=== PATIENT | female | born 1950 | race Caucasian/White ===

== ENCOUNTER → 2016-06-27 | Outpatient (CLI) | payer BC ==
[~2016-06-27] MED LIST: ADVIN25050 INH; ALBU1AER9 INH; ATV1 PO; CLIN300C10 PO; FSM35 PO; NEBI5TAB PO; OXYC-57 PO; PRED50TA PO; [UNRECOGNIZED DRUG - OTHER] PO
--- NOTE | 2016-06-27 09:41 | DIAGNOSTIC IMAGING REPORT ---
RIGHT KNEE 4 VIEWS; LEFT KNEE 4 VIEWS CLINICAL HISTORY: Bilateral knee pain. FINDINGS: An AP standing view both knees, a tunnel view both knees, a sunrise view of both knees, as well as lateral views of the right and left knee are compared radiographs of the right knee dated 12/29/2011 and radiographs of the left knee dated 05/17/2006. The skeletal structures are osteopenic. No fracture is seen. Right knee: There is mild tricompartmental degenerative joint space narrowing in the right knee, greatest in the medial and patellofemoral compartments. No osteochondral defect is identified on the tunnel image. There is minimal degenerative beaking of the tibial spine. A small calcified fabella is incidentally noted. There is no joint effusion. The overlying soft tissues are within normal limits. Left knee: There is mild tricompartmental degenerative joint space narrowing, greatest in the medial and patellofemoral compartments. No osteochondral defect is identified on the tunnel view. There are small lateral marginal osteophytes as well as minimal degenerative beaking of the tibial spine. A calcified fabella is incidentally noted. No joint effusion is identified. The overlying soft tissues are within normal limits. IMPRESSION: 1. No acute bony abnormality is seen in either knee. 2. Osteopenia and minimal arthritic change as above. Electronically signed by: Nish Conley M.D. 06/27/2016 9:39 AM Dictated Date/Time: 06/27/2016 9:36 AM
== END | disposition home or self-care (01) ==
LOC: C.RDSM 13:37
PROVIDERS: ATTEND Physical Medicine & Rehabilitation Sports Medicine
DX: M25.561 Pain in right knee (principal); M85.80 Other specified disorders of bone density and structure, unspecified site

== ENCOUNTER → 2016-08-01 | Outpatient (CLI) | payer BC ==
--- NOTE | 2016-08-01 13:53 | DIAGNOSTIC IMAGING REPORT ---
CT OF THE CHEST WITHOUT IV CONTRAST CLINICAL HISTORY: Malignant neoplasm of right upper lobe. Reactive airway disease. COMPARISON STUDY: Chest CT December 09, 2015. CT DOSE: 580.32 mGycm TECHNIQUE: Axial images of the chest were obtained without IV contrast. Images were reviewed in the axial, sagittal, and coronal planes. IV contrast was not administered for this examination. FINDINGS: There are findings consistent with a right upper lobectomy. No enlarged axillary, mediastinal or hilar lymph nodes are present. A left subclavian pacemaker is unchanged in position. Cardiac size is stable. There is a large hiatal hernia with partially intrathoracic stomach. The previously described 8 mm right perihilar nodule shown on image 80 of 307 is unchanged since prior exam of December 09, 2015. A 1 cm groundglass nodule within the right lower lobe shown on image 114 is also unchanged since prior exam but increased in size since an earlier study of March 26, 2015. There are scattered groundglass opacities within the lungs which are new since prior exam and favor an infectious process. No pneumothorax or pleural effusion is present. There are no suspicious osseous lesions. There is a small gallstone within the gallbladder. IMPRESSION: 1. Stable 8 mm right perihilar nodule since prior exam of December 09, 2015. This is indeterminate and should be assessed on subsequent studies. 2. 1 cm groundglass nodule within the right lower lobe. This is stable since prior chest CT but increased in size since earlier exams. This may reflect a low-grade malignancy. 3. Scattered mild groundglass opacities within the lungs which are new since prior exam and favor a mild infectious or inflammatory process. Electronically signed by: Jamil Mccabe M.D. 08/01/2016 1:51 PM Dictated Date/Time: 08/01/2016 10:18 AM
== END | disposition home or self-care (01) ==
LOC: C.CTS 10:02
PROVIDERS: ATTEND Internal Medicine Pulmonary Disease
DX: C34.10 Malignant neoplasm of upper lobe, unspecified bronchus or lung (principal); J45.909 Unspecified asthma, uncomplicated; R91.8 Other nonspecific abnormal finding of lung field

== ENCOUNTER → 2017-01-30 | Outpatient (CLI) | payer BC ==
--- NOTE | 2017-01-30 16:17 | DIAGNOSTIC IMAGING REPORT ---
(CHEST) THORAX WITHOUT CLINICAL HISTORY: R91.1 Pulmonary nodule COMPARISON STUDY: 08/01/2016 , March 2015 CT DOSE: 376.19 mGycm TECHNIQUE: CT of the thorax was performed from the thoracic inlet to the lung bases. Images are reviewed in the axial, sagittal, and coronal planes. IV contrast was not administered for this examination. A dose lowering technique was utilized adhering to the principles of ALARA. FINDINGS: Thyroid: Is an 8 mm right lobe thyroid nodule. There is a left lobe calcification. Thoracic aorta: The thoracic aorta is normal in course and caliber, noting standard 3 vessel arch anatomy. Heart: The heart is normal in size and configuration, without pericardial effusion. There is a left subclavian central venous pacemaker present. Lungs and pleural spaces: No pleural effusions are visualized. There is no focal pulmonary consolidation. There is an enlarging 11 mm right lower lobe groundglass pulmonary nodule. This is viewed as suspicious for a low-grade neoplasm. There is a solid irregularly marginated 9 mm perihilar right upper lung zone pulmonary nodule. This remains unchanged in size. There are postsurgical changes of a right upper lobectomy Mediastinum: There is no mediastinal lymphadenopathy. Latosha: There is no evidence of pathologic hilar adenopathy given the limitations of a noncontrast study Axilla: There is no evidence of pathologic axillary lymphadenopathy Upper abdomen: There is a large hiatal hernia Skeletal structures: There are no lytic or blastic osseous lesions. IMPRESSION: 1. Stable indeterminate 9 mm solid irregular marginated right upper lung zone perihilar nodule 2. Slowly enlarging 11 mm right lower lobe groundglass pulmonary nodule. This is suspicious for low-grade malignancy. Electronically signed by: Tono Haynes M.D. 01/30/2017 4:16 PM Dictated Date/Time: 01/30/2017 4:06 PM
== END | disposition home or self-care (01) ==
LOC: C.CTS 15:49
PROVIDERS: ATTEND Internal Medicine Pulmonary Disease
DX: R91.1 Solitary pulmonary nodule (principal)

== ENCOUNTER 2017-02-28 11:29 | Day surgery (SDC) | payer BC ==
[~2017-02-28] VITALS: Ht 160 cm; Wt 81.7 kg
[~2017-02-28 11:29] MED LIST changes: +CEFAZOLIN 2000 MG/60 ML D5W IV SCH; -CLIN300C10 PO; -OXYC-57 PO
[2017-02-28 11:56] VITALS: Ht 160 cm; Wt 81.7 kg
--- NOTE | 2017-02-28 12:24 | History & Physical Bridge Note ---
H&P Re-Evaluation Bridge Note: I have examined the patient, reviewed the History & Physical and in the interval since the performance of the History & Physical I have noted the following changes of clinical significance: Some episodes of dizziness. No syncope. Mild dyspnea.
[2017-02-28] MEDS ORDERED: BACITRACIN 50000 UNIT VIAL ONE (12:42)
[2017-02-28] MEDS ORDERED: BUPIVACAINE 0.5 % 5 MG/1 ML MPF 30ML VIAL ONE (12:42)
[2017-02-28] MEDS ORDERED: LIDOCAINE HCL 1% 20 ML VIAL ONE (12:42)
[2017-02-28] MEDS ORDERED: FENTANYL CITRATE INJ 50 MCG/1 ML 2 ML VIAL ONE (12:52)
[2017-02-28] MEDS ORDERED: MIDAZOLAM HCL 1 MG/ML 2ML VIAL ONE (12:53)
[2017-02-28] MEDS ORDERED: NURSING VERBAL MED ORDER ONE (13:00)
[2017-02-28] MEDS ORDERED: CLINDAMYCIN IV 600 MG in DEXTROSE 5% ADD-VANTAGE 50ML 50 ML IV SCH (13:00)
--- NOTE | 2017-02-28 13:05 | Procedure Note ---
Pre-Mod Sedation Assessment General Date of Moderate Sedation: Feb 28, 2017. Pre-Sedation Airway Assessment Oral Cavity: WNL Smoking Status: Never Smoker Mallampati Classification: Class III ASA Classification: Class III Procedure Planning Contraindications-for Mod Sed: None Yes Notes The planned sedation has been discussed with the patient and consent obtained. I have identified the patient, determined the appropriateness of sedation and have assessed the patient immediately prior to the procedure. All medicine(s) and interventions are by my order.
--- NOTE | 2017-02-28 13:37 | Procedure Note ---
Post-Mod Sedation Assessment General Date of Moderate Sedation Feb 28, 2017. Vital Signs: Vital Signs Past 12 Hours Date Time Temp Pulse Resp B/P (MAP) Pulse Ox O2 Delivery O2 Flow Rate FiO2 02/28/17 13:25 68 16 128/87 (101) 98 Room Air Review - Discharge Criteria Vital Signs Stable: Yes Alert/Oriented/Conversant: Yes Returned to Baseline Mental St: Yes Nausea Absent/Minimal: Yes Pain/Discomfort/Absent/Minimal: Yes Normal/Baseline Respirations: Yes Active Bleeding?: No Pt Received D/C Instructions: N/A Prescriptions Given: Printed Specific Proced. D/C Criteria Distal Pulses Present (Cardiac: N/A Groin site assessed-Card Cath: N/A Voided Prior To Discharge: N/A Discharged Patients Adult Escort/Transportation: Yes
[2017-02-28 13:40] VITALS: BP 129/71; PULSE 63; TEMP 36.7
[2017-02-28] MEDS ORDERED: CLIN300C10 PO (13:42)
[2017-02-28] MEDS ORDERED: OXYC-57 PO (13:42)
--- NOTE | 2017-02-28 13:44 | Discharge Instructions ---
Discharge Instructions Procedure Procedure Date: Feb 28, 2017. Reason for Visit: Elective Replacement Indicator. Discharge Discharge Date: Feb 28, 2017. Discharge Diagnosis: Heart block Last Recorded Wt (Kilograms): 81.7 Anesthesia Post Anesthesia Instructions: If you have had General Anesthesia or IV Sedation: * Do not drive today. * Resume driving when surgeon permits. * Do not make important decisions or sign legal documents today. * Call surgeon for: 1. Temperature elevations greater than 101 degrees F. 2. Uncontrollable pain. 3. Excessive bleeding. 4. Persistent nausea and vomiting. 5. Medication intolerance (nausea, vomiting or rash). * For nausea and vomiting use only clear liquids such as: tea, soda, bouillon until nausea subsides, then gradually increase diet as tolerated. * If you have any concerns or questions, call your surgeon's office. If physician is unavailable and it is an emergency, call 911 or go to the nearest emergency room. Instructions Activity Recommendations: limitations as noted below Return to School/Work: with no limitations Recommended Home Diet: resume previous diet Allergies: Coded Allergies: Penicillins (Verified Allergy, Mild, RASH-KEFLEX OK PER DR AMANDA, 02/28/17 ) Quinolones (Verified Allergy, Mild, HIVES, 02/28/17) Atorvastatin (Verified Allergy, Unknown, 02/28/17) Mirtazapine (Verified Allergy, Unknown, STRESS INDUCED CARDIOMYOPATHY, 06/04) Provider Instructions Keep wound dry and steri-strip intact until f/u. Follow Up Additional Instructions: May remove outer dressing in AM Follow-up with: Dr. Frye for wound check within 1 week Audrey Moeller Recommendations: Call your doctor if: * Temperature above 101 degrees * Pain not relieved by pain medicine ordered * There is increased drainage or redness from any incision * You have any unanswered questions or concerns. Your Doctors Instructions noted above were prepared by provider Yvan Butler. Patient Signature Section: Patient Instructions Signature Page Eden Sandoval Patient (or Guardian) Signature/Date: I have read and understand the instructions given to me by my caregivers. Caregiver/RN/Doctor Signature/Date: The above-named patient and/or guardian has received patient instructions on this date. + Original Patient Signature Page (only) stays with chart. Please make copy for patient.
[2017-02-28] MEDS ORDERED: OXYCODONE/ACETAMINOPHEN 5-325 TAB PO PRN (13:45)
[2017-02-28] MEDS ORDERED: OXYCODONE/ACETAMINOPHEN 5-325 TAB ONE (13:55)
[2017-02-28 14:10] VITALS: BP 120/50; PULSE 62; O2SAT 97
[2017-02-28 14:30] VITALS: BP 116/83; PULSE 75; TEMP 36.4; O2SAT 96
--- NOTE | 2017-02-28 14:48 | Procedure Note ---
Procedure Note Date of Service Feb 28, 2017. Procedure Note Procedure performed: Pulse generator change for dual-chamber permanent pacemaker Staff technical research scientist:Luis Butler MD Indication: The patient is a 66-year-old woman with a remote history of heart block who was noted on routine evaluation to have reached the elective replacement interval on her device. As a result she was advised to undergo pulse generator change today. The patient was informed of the risks benefits and alternatives to the intended procedure and she wished to proceed. She was taken to the electrophysiology suite in a fasting state. A preoperative antibiotic had been administered. The patient was monitored electrocardiographically throughout today's procedure and conscious sedation was administered per protocol. The left upper pectoral area is prepped and draped in usual sterile fashion. This area was anesthetized using subcutaneous menstruation of a xylocaine solution. An incision was made at this site and carried down to the previously implanted device using sharp dissection. Electrocautery was also employed for dissection as well as for hemostasis. The device was removed from the pocket. A partial capsulotomy was performed. The leads were detached from the old device and attached to a new device. The device pocket was irrigated with antibiotic solution. The device and leads were then placed in the pocket and pocket was closed in 3 layers of absorbable suture. Steri-Strips and sterile dressing were applied. The device was tested noninvasively prior to conclusion of the procedure. The patient tolerated procedure well there no immediate complications. Equipment used: Explanted pulse generator: Microbiological Lab Technician Dandelion. Model number S ED R 0 1. Serial number PW [id number] New pulse generator: Microbiological Lab Technician Scale [employer]onic. Model number a ADDR 0 1. Serial number N [id number] Retained right atrial lead: Microbiological Lab Technician Medtronic model 5. 568. Serial number L [id number] Retained right ventricular lead: Microbiological Lab Technician Medtronic model 4. 092. Serial number [id number] Measure data: Right atrial lead: P-waves measured 4 mV, pacing threshold was 0.75 volts at 0.4 milliseconds with a pacing impedance of 647 Ohms Right ventricular lead: R-waves measured 4 mV. Pacing threshold was 0.75 volts at 0.4 milliseconds with a pacing impedance of 663 Ohms Impression: Successful pulse generator change for dual-chamber permanent pacemaker Slightly small but adequate R-wave sensing
== END 2017-02-28 14:35 | disposition home or self-care (01) ==
LOC: C.ACU 11:29
PROVIDERS: ATTEND Internal Medicine Clinical Cardiac Electrophysiology
DX: I51.81 Takotsubo syndrome (principal); I10 Essential (primary) hypertension; J45.909 Unspecified asthma, uncomplicated; E78.5 Hyperlipidemia, unspecified; K21.9 Gastro-esophageal reflux disease without esophagitis; F41.8 Other specified anxiety disorders; D50.9 Iron deficiency anemia, unspecified; G47.33 Obstructive sleep apnea (adult) (pediatric); Z95.0 Presence of cardiac pacemaker; Z85.118 Personal history of other malignant neoplasm of bronchus and lung

== ENCOUNTER → 2017-04-06 | Outpatient (CLI) | payer BC ==
[~2017-04-06] MED LIST changes: -ADVIN25050 INH; -CEFAZOLIN 2000 MG/60 ML D5W IV SCH; -FSM35 PO; +OXYC-57 PO; -PRED50TA PO; -[UNRECOGNIZED DRUG - OTHER] PO
--- NOTE | 2017-04-09 22:32 | PULMONARY FUNCTION TEST ---
Spirometry shows a moderate obstructive pattern. Repeat study done following bronchodilators showed mild but not significant improvement in function. Flow volume loops were consistent with spirometric findings. Lung volumes show evidence of air trapping and are compatible with spirometry. Diffusion was mildly reduced to 64%. However, when corrected for alveolar ventilation, was 132%. Advise clinical correlation.
== END | disposition home or self-care (01) ==
LOC: C.RC 09:32
PROVIDERS: ATTEND Internal Medicine Pulmonary Disease
DX: J45.909 Unspecified asthma, uncomplicated (principal); R91.1 Solitary pulmonary nodule

== ENCOUNTER 2017-05-07 09:30 | Emergency (ER) | payer BC ==
[~2017-05-07] VITALS: Ht 160 cm; Wt 84.6 kg
[2017-05-07 09:43] VITALS: BP 148/82; TEMP 36.6; Ht 160 cm; Wt 84.6 kg
--- NOTE | 2017-05-07 10:13 | DIAGNOSTIC IMAGING REPORT ---
L ANKLE MIN 3 VIEWS ROUTINE CLINICAL HISTORY: Left ankle pain status post trauma COMPARISON: None. DISCUSSION: The bones are osteopenic. There is mild medial soft tissue swelling. There is a nondisplaced fracture the distal fibula. The ankle mortise appears intact. IMPRESSION: Subtle nondisplaced distal fibular fracture. Electronically signed by: Tono Haynes M.D. 05/07/2017 10:11 AM Dictated Date/Time: 05/07/2017 10:11 AM
[2017-05-07] MEDS ORDERED: VNTHFA/IN INH (10:23)
[2017-05-07] MEDS ORDERED: ATV/1 PO (10:23)
[2017-05-07] MEDS ORDERED: NEBI2.5T2 PO (10:23)
[2017-05-07] MEDS ORDERED: ESCI1TAB10 PO (10:23)
[2017-05-07] MEDS ORDERED: BUSP5TAB59 PO (10:23)
[2017-05-07 11:03] VITALS: PULSE 90; O2SAT 98
--- NOTE | 2017-05-07 17:26 | EMERGENCY ROOM VISIT NOTE ---
ED Visit Note First contact with patient: 09:50 Chief complaint: Left ankle pain. HPI: This 66-year-old white female presents to the emergency room for evaluation of her left ankle. The patient injured the ankle a week ago when she fell coming down some stairs. She believes the ankle was inverted. Since that time, they have had persistent pain over the lateral portion of the ankle. She thought it would get better but has not. She states the pain was quite severe last night. She did have to ice and elevate the ankle. Swelling has persisted. She denies any numbness or tingling. Pain is worse with weight- bearing. They have been walking with a limp. no knee or hip pain. No pop or snap with injury. Treatment has consisted of ice. No prior history of significant ankle injury. Pain is 5/10. Her accompanies her today. REVIEW OF SYSTEM: HEENT: No dizziness, visual problems, hearing loss, tinnitus. There is no difficulty swallowing and no oral lesions are present. LYMPH: No adenopathy. PULMONARY: No cough, shortness of breath, sputum production or hemoptysis. CARDIOVASCULAR: No chest pain, palpitations, shortness of breath or peripheral edema. GASTROINTESTINAL: No diarrhea, constipation, nausea, vomiting, or abdominal pain. GENITOURINARY: No dysuria, frequency, urgency or nocturia. NEUROLOGIC: No weakness, muscle tenderness, epilepsy or history of neurological problems. MUSCULOSKELETAL: No history of joint tenderness/swelling. No history of arthritis or arthralgias. SKIN: No rashes or lesions. PSYCHIATRIC: No history of depression or mental illness. ENDOCRINE: No history of diabetes, thyroid disorders, abnormal hair growth. PAST MEDICAL HISTORY: Supplemental sheet was reviewed. Previous surgeries: Reviewed and filed in patient's chart Medical history: Significant for hypertension, asthma, depression, anxiety. Current medications: Reviewed and filed in patient's chart Allergies: Atorvastatin, Levaquin, mirtazapine, penicillin, quinolones, sertraline. Family history: Noncontributory. Social history: Patient is . Employed. No tobacco use. PHYSICAL EXAM: Vitals: Afebrile. Reviewed and filed in patient's chart General: Well-developed, well-nourished, elderly white female, in obvious discomfort. No acute distress. She is sitting on a bed. Alert and oriented. Skin:Warm and dry with good turgor. No rashes or lesions. No erythema. The patient is not diaphoretic. No abrasions. Edema is present over the left lower leg and ankle. Significant ecchymosis in the lower leg and foot. Musculoskeletal: Left ankle evaluation reveals no pain with palpation across the knee or proximal tibia or fibula. There is pain with palpation over the lateral malleolus and the lateral ligaments. No pain over the medial malleolus or deltoid ligament. Achilles' tendon is palpated to its entirety and found to be intact and without defect. Normal Degroot test. No pain with palpation of the calcaneus, fifth metatarsal base, midfoot, forefoot, or toes. Motor function to the toes is intact and unremarkable. Motor function to the ankle is intact but range of motion is limited by pain. Strength is 5/5 for resisted motion. Drawer and tilt testing were not attempted. Neurologic: Gross sensation is intact across all aspects of the foot and ankle via soft touch. Peripheral pulses are 2+. Data: Radiographic images of the ankle were obtained today and were reviewed by me as well as radiology. She has a nondisplaced distal fibular fracture. IMPRESSION: Left distal fibular fracture, nondisplaced. PLAN: The patient was educated regarding today's findings. Conservative care measures were discussed. Patient was given a high cam boot. She was also given a walker. Weight-bear as tolerated in the boot. She may use an ankle splint at night when sleeping. It may be removed for bathing. Gentle motion daily. Ice and elevate intermittently over the next 3 days, after which she may switch to moist heat. Lower leg should be elevated at night during sleep. Tylenol and ibuprofen every 6 hours as needed for discomfort. Return to the ER for any acute changes. Follow-up with her orthopedist this week for further evaluation and management. She was reassured that I do not suspect mortise widening at this point or foot fracture. Current/Historical Medications Scheduled Buspirone Hcl (Buspirone Hcl), 5 MG PO BID Escitalopram Oxalate (Lexapro), 30 MG PO DAILY Lorazepam (Ativan), 2 MG PO HS Nebivolol Hcl (Bystolic), 2.5 MG PO DAILY Scheduled PRN Albuterol Hfa (Ventolin Hfa), 2-4 PUFFS INH Q6H PRN for SOB/Wheezing Allergies Coded Allergies: Penicillins (Verified Allergy, Mild, RASH-KEFLEX OK PER DR AMANDA, ) Quinolones (Verified Allergy, Mild, HIVES, 05/07/17) Atorvastatin (Verified Allergy, Unknown, 05/07/17) Levofloxacin (Unverified Allergy, Unknown, ., 05/07/17) Mirtazapine (Verified Allergy, Unknown, STRESS INDUCED CARDIOMYOPATHY, ) Sertraline (Unverified Allergy, Unknown, ., 05/07/17) Vital Signs Date Time Temp Pulse Resp B/P (MAP) Pulse Ox O2 Delivery O2 Flow Rate FiO2 05/07/17 11:03 90 18 98 05/07/17 09:43 36.6 69 18 148/82 96 Room Air Departure Information Impression Primary Impression: Fracture of distal end of left fibula Dispostion Home / Self-Care Condition FAIR Referrals Ashkan Chahal MD Forms HOME CARE DOCUMENTATION FORM, MOTRIN USE, TYLENOL USE, IMPORTANT VISIT INFORMATION Patient Instructions My [facility] Additional Instructions Tylenol and Motrin every 6 hours as needed for discomfort Ice and elevate frequently to reduce pain and swelling Use the cam boot at all times while weightbearing Use an ankle brace appetite was sleeping Use crutches to assist with ambulation Follow-up with your orthopedist Monday or Monday for reexamination and further care
== END 2017-05-07 11:03 | disposition home or self-care (01) ==
LOC: C.EDB 09:31 → C.EDD 11:03
DX: S82.62XA Displaced fracture of lateral malleolus of left fibula, initial encounter for closed fracture (principal); W10.9XXA Fall (on) (from) unspecified stairs and steps, initial encounter; I10 Essential (primary) hypertension; J45.909 Unspecified asthma, uncomplicated; F32.9 Major depressive disorder, single episode, unspecified; F41.9 Anxiety disorder, unspecified

== ENCOUNTER → 2017-05-15 | Outpatient (CLI) | payer BC ==
[~2017-05-15] MED LIST changes: -ALBU1AER9 INH; +ATV/1 PO; -ATV1 PO; +BUSP5TAB59 PO; +ESCI1TAB10 PO; +NEBI2.5T2 PO; -NEBI5TAB PO; -OXYC-57 PO; +VNTHFA/IN INH
--- NOTE | 2017-05-15 14:34 | DIAGNOSTIC IMAGING REPORT ---
LEFT ANKLE 3 VIEWS HISTORY: F/U LEFT ANKLE FX COMPARISON: Left ankle 05/07/2017. FINDINGS: The distal tibia is intact. No change in the small nondisplaced fracture along the lateral aspect of the distal fibula. Lateral soft tissue swelling. No dislocation. No radiopaque foreign bodies. IMPRESSION: No change in the small nondisplaced fracture along the lateral aspect of the distal fibula. No evidence for healing at this time. Electronically signed by: Hany Rogers M.D. 05/15/2017 2:32 PM Dictated Date/Time: 05/15/2017 2:31 PM
== END | disposition home or self-care (01) ==
LOC: C.RDSM 14:01
PROVIDERS: ATTEND Physician Assistant
DX: S82.832A Other fracture of upper and lower end of left fibula, initial encounter for closed fracture (principal); X58.XXXA Exposure to other specified factors, initial encounter

== ENCOUNTER → 2017-06-05 | Outpatient (CLI) | payer BC ==
--- NOTE | 2017-06-05 11:34 | DIAGNOSTIC IMAGING REPORT ---
L ANKLE MIN 3 VIEWS HISTORY: 66 years-old Female F/U LEFT ANKLE FX follow-up study to assess left ankle fracture COMPARISON: Left ankle radiographs 05/15/2017 TECHNIQUE: 3 views of the left ankle FINDINGS: Decreased amount of soft tissue swelling which is mild. There is progressive healing of the subacute nondisplaced fracture involving the distal fibula which is almost entirely healed. No acute fracture or subluxation. Minimal joint changes of the dorsal midfoot. IMPRESSION: Progressive healing of the subacute nondisplaced fracture of the distal fibula The above report was generated using voice recognition software. It may contain grammatical, syntax or spelling errors. Electronically signed by: Manas Holliday M.D. 06/05/2017 11:33 AM Dictated Date/Time: 06/05/2017 11:32 AM
== END | disposition home or self-care (01) ==
LOC: C.RDSM 11:20
PROVIDERS: ATTEND Physician Assistant
DX: Z09 Encounter for follow-up examination after completed treatment for conditions other than malignant neoplasm (principal); S82.402D Unspecified fracture of shaft of left fibula, subsequent encounter for closed fracture with routine healing; X58.XXXD Exposure to other specified factors, subsequent encounter

== ENCOUNTER → 2017-07-03 | Outpatient (CLI) | payer BC ==
--- NOTE | 2017-07-03 08:42 | DIAGNOSTIC IMAGING REPORT ---
L ANKLE MIN 3 VIEWS HISTORY: 66 years-old Female F/U LEFT ANKLE FX follow-up study to assess a distal left fibular fracture. COMPARISON: Left ankle radiographs 06/05/2017, 05/15/2017 and 05/07/2017 TECHNIQUE: 3 views of the left ankle FINDINGS: Progressive healing callus formation involves the nondisplaced subacute fracture of the distal fibula without discrete fracture line identified. There is no acute fracture or subluxation identified. No osteochondral defect. No intra-articular loose body or large joint effusion. Probable vascular calcification of the mid pretibial tissues, 5 mm. IMPRESSION: 1. No acute fracture or subluxation. 2. Healed fracture of the distal fibula. The above report was generated using voice recognition software. It may contain grammatical, syntax or spelling errors. Electronically signed by: Manas Holliday M.D. 07/03/2017 8:40 AM Dictated Date/Time: 07/03/2017 8:38 AM
== END | disposition home or self-care (01) ==
LOC: C.RDSM 08:30
PROVIDERS: ATTEND Physician Assistant
DX: Z09 Encounter for follow-up examination after completed treatment for conditions other than malignant neoplasm (principal); Z87.81 Personal history of (healed) traumatic fracture

== ENCOUNTER → 2018-01-24 | Outpatient (CLI) | payer BC ==
--- NOTE | 2018-01-24 11:51 | DIAGNOSTIC IMAGING REPORT ---
(CHEST) THORAX WITHOUT CLINICAL HISTORY: 67 years-old Female presenting with PULMONARY NODULE. TECHNIQUE: Multidetector CT imaging of the chest was performed without the use of intravenous contrast. IV contrast: None. A dose lowering technique was used consistent with the principles of ALARA (as low as reasonably achievable). COMPARISON: 01/30/2017. CT DOSE (mGy.cm): The estimated cumulative dose is 426.49 mGycm. 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 On soft tissue windows, subcentimeter hypodense nodule in the right lobe of the thyroid. Parenchymal calcification in the left lobe of the thyroid. No axillary, supraclavicular, or mediastinal lymphadenopathy. Evaluation of the markel limited without intravenous contrast. Atherosclerosis of the aorta. Normal heart size. Coronary artery calcification. No pericardial or pleural effusion. Large hiatal hernia with the nearly the entire stomach located in the thorax. A portion of the pancreatic body is also retracted towards the hernia sac. Cholelithiasis. On lung windows, slight interval increase in size of the groundglass nodule in the right lower lobe in the azygos esophageal recess, which now measures 12 mm (series 4 image 118), previously 9 mm when remeasured at a comparable level. Spiculated solid nodule adjacent to a bronchovascular bundle in the superior segment of the right lower lobe now measures 11 mm (series 4 image 78), previously 9 mm. Postsurgical changes of right upper lobectomy. Bronchi to the residual right middle lobe are stenotic with incomplete aeration of the right middle lobe. No new nodule. Dependent groundglass opacity in the left lower lobe likely atelectasis. Central airways patent. On bone windows, normal osseous structures. IMPRESSION: 1. Slight interval increase in size of the spiculated solid 11 mm nodule in the superior segment of the right lower lobe. This is concerning for a primary bronchogenic neoplasm. 2. Slight interval increase size of the 12 mm subsolid nodule in the azygos esophageal recess of the right lower lobe. This is concerning for an adenomatous lesion, adenocarcinoma in situ not excluded. Primary care physician (PCP) and/or surgical follow-up recommended until clinical, surgical, or pathologic diagnosis established. Please refer to below summary of Fleischner Society 2017 recommendations for follow-up of incidental CT nodules (Michelle Urrutia et al. Guidelines for management of incidental pulmonary nodules detected on CT images: From the Fleischner Society 2017. Radiology 2017; 284: 228-243.) SOLID NODULES Single nodule; size < 6 mm * Low risk patients: No routine follow-up * High risk patients: Optional CT at 12 months Single nodule; size 6-8 mm * Low risk patients: CT at 6-12 months, then consider CT at 18-24 months * High risk patients: CT at 6-12 months, then at 18-24 months Single nodule; size > 8 mm * Either low or high risk patients: Considered CT at 3 months, PET/CT, or tissue sampling Multiple nodules; size < 6 mm * Low risk patients: No routine follow up * High risk patients: Optional CT at 12 months Multiple nodules; size 6-8 mm * Low risk patients: CT at 3-6 months, then consider CT at 18-24 months * High risk patients: CT at 3-6 months, then at 18-24 months Multiple nodules; size > 8 mm * Low risk patients: CT at 3-6 months, then consider at 18-24 months * High risk patients: CT at 3-6 months, then at 18-24 months SUBSOLID NODULES Single ground-glass nodule * Nodule size < 6 mm: No routine follow-up * Nodule size > or = 6 mm: CT at 6-12 months to confirm persistence, then CT every 2 years until 5 years Single part-solid nodule * Nodule size < 6 mm: No routine follow-up * Nodules size > or = 6 mm: CT at 3-6 months to confirm persistence. If unchanged and solid component remains < 6 mm, annual CT should be performed for 5 years Multiple nodules * Nodule size < 6 mm: CT at 3-6 months. If stable, consider CT at 2 and 4 years. * Nodules size > or = 6 mm: CT at 3-6 months. Subsequent management based on the most suspicious nodule(s) NOTE: 1) These guidelines apply to incidental nodules. These guidelines do NOT apply to patients younger than 35 years, immunocompromised patients, or patients with cancer. 2) Risk categories: * Low risk patients: Minimal or absent history of smoking and/or other known risk factors * High risk patients: History of smoking, exposure to other carcinogens, emphysema, fibrosis, upper lobe location, family history of lung cancer, etc. 3) If a nodule up to 8 mm is partly solid or is ground glass, further follow-up is required after 24 months to exclude possible slow growing adenocarcinoma. Electronically signed by: Eitan Jalloh M.D. 01/24/2018 11:50 AM Dictated Date/Time: 01/24/2018 11:41 AM
== END | disposition home or self-care (01) ==
LOC: C.CTS 11:01
PROVIDERS: ATTEND Internal Medicine Pulmonary Disease
DX: R91.8 Other nonspecific abnormal finding of lung field (principal)

== ENCOUNTER 2019-03-09 00:03 | Inpatient (IN) ==
[2019-03-09] MEDS ORDERED: ONDANSETRON INJ 2 MG/ML 2 ML VIAL IV STA (00:53)
[2019-03-09] MEDS ORDERED: SODIUM CHLORIDE 0.9% 500 ML IV ONE (00:53)
[2019-03-09] MEDS ORDERED: SODIUM CHLORIDE 0.9% 500 ML IV SCH (01:00)
[2019-03-09 01:29] LABS: Hematocrit (blood only) 32.9 % (37-47); Hemoglobin 10.7 g/dL (12.0-16.0); Mean Corpuscular Hemoglobin 31.4 pg (25-34); Mean Corpuscular Hgb Conc 32.5 g/dL (32-36); Mean Corpuscular Volume 96.5 fL (80-100); Mean Platelet Volume 9.3 fL (7.4-10.4); Platelet Count 179 K/uL (130-400); RDW Coefficient of Variation 15.1 % (11.5-14.5); RDW Standard Deviation 53.3 fL (36.4-46.3); Red Blood Count 3.41 M/uL (4.2-5.4); White Blood Count 16.64 K/uL (4.8-10.8)
[2019-03-09 01:47] LABS: Albumin Level 2.6 gm/dl (3.4-5.0); BUN Creatinine Ratio 11.5 (10-20); Calcium 7.9 mg/dl (8.5-10.1); Creatinine Clr Calc Pharmacy 46.4 ml/min; Est GFR (African American) 58.2; Est GFR (Non-African American) 50.3; Potassium 3.2 mmol/L (3.5-5.1)
[2019-03-09 01:49] LABS: Albumin Globulin Ratio 0.7 (0.9-2); Bilirubin,Total 0.5 mg/dl (0.2-1); Globulin 3.8 gm/dl (2.5-4.0); Total Protein 6.4 gm/dl (6.4-8.2)
[2019-03-09 02:08] LABS: Basophils # (auto) 0.01 K/uL (0-0.2); Basophils % (auto) 0.1 %; Immature Granulocytes # (auto) 0.04 K/uL (0.00-0.02); Immature Granulocytes % (auto) 0.2 %; Lymphocytes # (auto) 0.57 K/uL (1.2-3.4); Lymphocytes % (auto) 3.4 %; Monocytes # (auto) 0.71 K/uL (0.11-0.59); Monocytes % (auto) 4.3 %; Neutrophils # (auto) 15.31 K/uL (1.4-6.5)
--- NOTE | 2019-03-09 02:58 | History & Physical Report ---
Date of Service March 09, 2019 Assessment & Plan (1) Nausea & vomitin yo F here with intractable nausea and vomiting a/w loose stools. With some sinus tachycardia, but thankfully no overt sign of organ disfunction or fevers presently. Plan: -zofran PRN with attention to QTC (currently wnl) -clear liquid diet + IVF hydration x 1day ordered. -follow clinically, otherwise as below -given that this is her second significant bout in a month, may benefit outpatient follow up with gastroenterology query new food allergy vs other etiology. FEN/GI: clears, 1/2NSS + 20meqK x1 day @maintenance and 1/2 DVT ppx: scds CODE STATUS: FULL as d/w pt and at bedside DISPO: med/surg awaiting stool cx's, and U/S. (2) Loose stools: Stool studies ordered inc giardia, h pylori, WBC, culture (3) Epigastric discomfort: + Toribio sign on my exam - U/S abd limited ordered and pending (4) Leukocytosis: Could be consistent with gastroenteritis, viral v bacterial (5) HTN (hypertension): cont home nebivolol (6) Asthma: cont home inhalers (7) Anxiety: cont home ativan, buspirone, escitalopram History of Present Illness Chief Complaint: intractable nausea, loose stools, epigastric pain Primary Care Provider: Brooks Eddy MD 68 yo F with PMH HTN and asthma and anemia on Fe (since a few weeks ago) presents with 2 day worsening of chills, nausea, nonbloody emesis and non bloody loose stools. Presented to ED earlier this evening, KUB unremarkable, labs with mild leukocytosis, hydrated with 1.5 L NSS and given zofran with good effect. She went home in good condition but then the nausea and chills began again and her brought her back by private vehicle. Denies sick contacts. Denies marijuana or other substance use. Has no known history of food allergies. Has no h/of abdominal surgeries. No new or exotic eating. And of note, has felt well. She had a bout of similar nonspecific gastrointestinal illness accompanied by low platelets while traveling in [facility] one month ago, but lyme (and presumably anaplasmosis?) all came back negative. Was treated empirically with doxycycline and has felt well since that day. Allergies Allergy/AdvReac Type Severity Reaction Status Date / Time mirtazapine Allergy Severe STRESS Verified 03/09/19 00:40 INDUCED CARDIOMYOPATHY levofloxacin Allergy Intermediate Hives Verified 03/09/19 00:40 Quinolones Allergy Intermediate HIVES Verified 03/09/19 00:40 sertraline Allergy Intermediate MAKES HER Verified 03/09/19 00:40 "CRAZY". Penicillins Allergy Mild RASH-KEFLEX Verified 03/09/19 00:[address] AMANDA Home Medications Home Medications Medication Instructions Recorded Confirmed Type mometasone-formoterol HFA 200 2 puffs INH BID #13 gm 02/13/19 03/09/19 Rx mcg-5 mcg/actuation aerosol inhaler buspirone 15 mg tablet 15 mg PO BID tab 03/06/19 03/09/19 History escitalopram 20 mg tablet 30 mg PO QAM tab 03/06/19 03/09/19 History fexofenadine 180 mg tablet 180 mg PO DAILY PRN tab 03/06/19 03/09/19 History lorazepam 1 mg tablet 1 mg PO HS tab 03/06/19 03/09/19 History nebivolol 2.5 mg tablet 2.5 mg PO QAM tab 03/06/19 03/09/19 History acetaminophen [Tylenol Extra 1,000 mg PO Q6H PRN 03/08/19 03/09/19 History Strength] famotidine [Pepcid] 40 mg PO QAM 03/08/19 03/09/19 History ferrous sulfate [iron] 325 mg PO BID 03/08/19 03/09/19 History ipratropium-albuterol [Combivent 1 puff INHALATION Q6H PRN 03/08/19 03/09/19 History Respimat] ondansetron HCl [Zofran] 4 mg PO Q6H PRN #10 tab 03/08/19 03/09/19 Rx Past Med/Surg History Medical History Anxiety (Chronic) Asthma (Chronic) Heart disease (Chronic) HTN (hypertension) (Chronic) Surgical History S/P lobectomy of lung S/P placement of cardiac pacemaker Family History Other Cancer Heart disease Hypertension Lung disease Social History Preferred Language: Indonesian Communication Ability: Effective 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 HENT: Normocephalic, atraumatic. Mucus membranes appear dry. EYES: Normal conjunctiva. Sclera non-icteric. EOMI. NECK: Supple. Full range of motion. RESPIRATORY: Clear to auscultation. Normal work of breathing. CARDIAC: Regular rate, normal rhythm. Extremities warm and well perfused, 2+ posterior tibialis pulses bilaterally. ABDOMEN: Soft, non-distended. Mild tenderness to palpation in epigastrum. No rebound or guarding. No masses. Bowel sounds are normal. + toribio's sign LOWER EXTREMITIES: Inspection of calves reveal equal size bilaterally. They are non-tender. No edema. mild discoloration with some petechiae. NEURO: No gross focal motor deficits noted. Sensation in tact. CN II-XII grossly in tact. . SKIN: Rash not present. No jaundice noted. PSYCH: Appropriate mood and affect. Cooperative. is present at the bedside Exam as done by Supriya Murphy MD, Practice Performance Manager. Results & Data Vital Signs (Past 12 Hours) Vital Signs Temp Pulse Pulse Resp BP BP Pulse Ox 03/09/19 02:03 91 H 18 138/64 95 03/09/19 01:17 94 03/09/19 00:12 36.7 C 118 H 18 111/58 L 95 Laboratory Results 03/09/19 03/09/19 Range/Units 01:17 01:17 WBC 16.64 H (4.8-10.8) K/uL RBC 3.41 L (4.2-5.4) M/uL Hgb 10.7 L (12.0-16.0) g/dL Hct 32.9 L (37-47) % MCV 96.5 (80-100) fL MCH 31.4 (25-34) pg MCHC 32.5 (32-36) g/dL RDW Std Deviation 53.3 H (36.4-46.3) fL RDW Coeff of Neva 15.1 H (11.5-14.5) % Plt Count 179 (130-400) K/uL MPV 9.3 (7.4-10.4) fL Immature Gran % (Auto) 0.2 % Neut % (Auto) 92.0 % Lymph % (Auto) 3.4 % Wheeler % (Auto) 4.3 % Eos % (Auto) 0.0 % Baso % (Auto) 0.1 % Immature Gran # (Auto) 0.04 H (0.00-0.02) K/uL Neut # (Auto) 15.31 H (1.4-6.5) K/uL Lymph # (Auto) 0.57 L (1.2-3.4) K/uL Wheeler # (Auto) 0.71 H (0.11-0.59) K/uL Eos # (Auto) 0.00 (0-0.5) K/uL Baso # (Auto) 0.01 (0-0.2) K/uL Sodium 141 (136-145) mmol/L Potassium 3.2 L (3.5-5.1) mmol/L Chloride 109 H (98-107) mmol/L Carbon Dioxide 25 (21-32) mmol/L Anion Gap 7.0 (3-11) BUN 13 (7-18) mg/dl Creatinine 1.13 (0.6-1.2) mg/dl Est Cr Clr Drug Dosing 46.4 ml/min Est GFR ( Amer) 58.2 Est GFR (Non-Af Amer) 50.3 BUN/Creatinine Ratio 11.5 (10-20) Glucose 122 H (70-99) mg/dl Calcium 7.9 L (8.5-10.1) mg/dl Total Bilirubin 0.5 (0.2-1) mg/dl AST 22 (15-37) U/L ALT 24 (12-78) U/L Alkaline Phosphatase 68 (45-117) U/L Total Protein 6.4 (6.4-8.2) gm/dl Albumin 2.6 L (3.4-5.0) gm/dl Globulin 3.8 (2.5-4.0) gm/dl Albumin/Globulin Ratio 0.7 L (0.9-2) Lipase 64 L (73-393) U/L Medications Administered Current Inpatient Medications Sodium Chloride (Nss) 500 mls @ 125 mls/hr IV .Q4H CR Stop: 04/08/19 00:59 Last Admin: 03/09/19 01:18 Dose: 125 mls/hr Documented by: Code Status & VTE Plan VTE Prophylaxis Plan VTE Prophylaxis will be ordered: Yes Supervising Physician Co-Signing Physician Notes Attending addendum: I have physically seen this patient, have supervised the medical residents activities, and agree with the H&P unless as otherwise noted. Assessment and Plan: Intractable nausea/vomiting/diarrhea- Zofran 4 mg IV every 6 hours PRN. Famotidine 20 mg IV every 12 hours. Clear liquid diet. IV fluids. Follow stool studies. Follow results of ultrasound abdomen and pelvis. Remainder of orders and notations as noted. PG Care Time/CCT Total # of Minutes Spent Total Time Spent with Patient: Total time spent is greater than 50% in coordination of care (as documented) at patient's floor/unit and/or counseling patient: Resident Activity Tracking Resident Involvement: Resident Care Provided Care Provided: Adult Hospital Medicine (1) Leukocytosis Leukocytosis type: unspecified Qualified Code(s): D72.829 - Elevated white blood cell count, unspecified
[2019-03-09] MEDS ORDERED: FEXOFENADINE HCL 180 MG TAB PO PRN (03:36)
[2019-03-09] MEDS ORDERED: IPRATROPIUM BROMIDE/ALBUTEROL respimat INH INH PRN (03:36)
[2019-03-09] MEDS ORDERED: POLYETHYLENE (MIRALAX) 17 GM PACK PO PRN (03:36)
[2019-03-09] MEDS ORDERED: MAGNESIUM HYDROXIDE SUSP 30 ML UDC PO PRN (03:36)
[2019-03-09] MEDS: SODIUM CHLOR 0.45% + 20MEQ KCL 20 MEQ/1,000 ML BAG IV SCH ×3 (03:54→17:20)
--- NOTE | 2019-03-09 04:29 | Emergency Department Note ---
Entered by En Conn acting as a scribe for History of Present Illness General Chief complaint: Nausea Stated complaint: NAUSEA,VOMITING,DIARRHEA Time Seen by Provider: 03/09/19 00:33 Source: patient History of Present Illness Onset (ago): hour(s) (24) Pain Consistency: + intermittent (vomiting) Quality: + other (nausea and vomiting) Relieved By: + medication (Zofran) Associated symptoms: + denies other symptoms (abdominal pain); no chest pain and no shortness of breath The patient is a 68 y/o female who presents to the ED w/ CC of intermittent nausea and vomiting beginning 24 hours ago. The patient states she was evaluated in the ED earlier today for nausea and vomiting. She reports she was discharged with Zofran and was told not to take it for 6 hours. The patient notes she then developed nausea again and started vomiting. She states she developed diarrhea which was new since discharge. The patient reports 48 hours ago she felt completely normal. She denies abdominal pain, chest pain, and shortness of breath. Home Medications Home Medications Medication Instructions Recorded Confirmed Type mometasone-formoterol HFA 200 2 puffs INH BID #13 gm 02/13/19 03/09/19 Rx mcg-5 mcg/actuation aerosol inhaler buspirone 15 mg tablet 15 mg PO BID tab 03/06/19 03/09/19 History escitalopram 20 mg tablet 30 mg PO QAM tab 03/06/19 03/09/19 History fexofenadine 180 mg tablet 180 mg PO DAILY PRN tab 03/06/19 03/09/19 History lorazepam 1 mg tablet 1 mg PO HS tab 03/06/19 03/09/19 History nebivolol 2.5 mg tablet 2.5 mg PO QAM tab 03/06/19 03/09/19 History acetaminophen [Tylenol Extra 1,000 mg PO Q6H PRN 03/08/19 03/09/19 History Strength] famotidine [Pepcid] 40 mg PO QAM 03/08/19 03/09/19 History ferrous sulfate [iron] 325 mg PO BID 03/08/19 03/09/19 History ipratropium-albuterol [Combivent 1 puff INHALATION Q6H PRN 03/08/19 03/09/19 History Respimat] ondansetron HCl [Zofran] 4 mg PO Q6H PRN #10 tab 03/08/19 03/09/19 Rx Allergies Allergy/AdvReac Type Severity Reaction Status Date / Time mirtazapine Allergy Severe STRESS Verified 03/09/19 00:40 INDUCED CARDIOMYOPATHY levofloxacin Allergy Intermediate Hives Verified 03/09/19 00:40 Quinolones Allergy Intermediate HIVES Verified 03/09/19 00:40 sertraline Allergy Intermediate MAKES HER Verified 03/09/19 00:40 "CRAZY". 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 and A total of 10 systems reviewed and were otherwise negative Physical Exam Vital Signs Vital Signs - 24 hr 03/09/19 00:12 03/09/19 01:17 03/09/19 02:03 Temperature 36.7 C Temperature Source Oral Sepsis Recent Fever Within 48 Hours No Sepsis Action Taken by Nursing No Action Required Pulse Rate 118 H Pulse Rate [Right Finger] 91 H Respiratory Rate 18 18 Respiratory Effort / Characteristics Non-Labored Respiratory Depth Normal Blood Pressure 111/58 L Blood Pressure [Left Arm] 138/64 Blood Pressure Mean 75 Blood Pressure Mean [Left Arm] 88 Pulse Oximetry 95 94 95 Oxygen Delivery Method Room Air Room Air Room Air HEENT: Head - normocephalic and atraumatic Pupils are equal, round, and reactive to light. Extraocular eye muscles are intact, and sclera are anicteric. Nose - moist nasal mucosa without discharge. Mouth - moist buccal mucosa. Oropharynx is nonerythematous and there is no tonsillar exudate or edema noted. Neck: Supple; no JVD, nuchal rigidity, cervical lymphadenopathy. Heart: Regular rate and rhythm. There is a normal S1 and S2 with no murmurs, clicks, or gallops appreciated. Lungs: Clear to auscultation bilaterally with no wheezes, rales, or rhonchi. Abdomen: Soft, completely nontender, nondistended, with good bowel sounds. There are no palpable pulsatile masses or hepatosplenomegaly. There is no guarding, rigidity, or rebound noted. Extremities: No evidence of cyanosis, clubbing, or edema. There are easily palpable peripheral pulses. Skin: warm and dry with good turgor. Pale. Petechiae about her legs. Course 0043: The patient was evaluated in room A12B. A complete history and physical examination were performed. Nursing notes and previous electronic medical records were reviewed. IV lock was established and labs were drawn as above. 0053: Ordered Sodium Chloride 500 ml @ 999 mls/hr IV, Zofran 4mg IV. 0100: Ordered Sodium Chloride 500 ml @ 125 mls/hr IV. 0159: Upon reevaluation, I discussed findings and results with the patient.. She is feeling better and verbalized agreement of the treatment plan. The patient will be evaluated for further management and care. 0208: I spoke with Dr. Arreola of the [facility] Hospitalist Service. The patient will be evaluated for further management and care. Administered Medications Potassium Chloride/Sodium Chloride (1/2 Nss + 20meq Kcl 1000ml) 20 meq in 1,000 mls @ 150 mls/hr IV .Q6H40M CR Stop: 03/10/19 03:59 Last Admin: 03/09/19 03:54 Dose: 150 mls/hr Documented by: [id number] Discontinued Medications Sodium Chloride (Nss) 500 mls @ 999 mls/hr IV .Q31M ONE Stop: 03/09/19 01:23 Last Infusion: 03/09/19 01:50 Dose: 0 mls/hr Documented by: [id number] Admin: 03/09/19 01:18 Dose: 999 mls/hr Documented by: [id number] Sodium Chloride (Nss) 500 mls @ 125 mls/hr IV .Q4H CR Stop: 04/08/19 00:59 Last Admin: 03/09/19 01:18 Dose: 125 mls/hr Documented by: [id number] Ondansetron HCl (Zofran) 4 mg IV NOW STA Stop: 03/09/19 00:54 Last Admin: 03/09/19 01:18 Dose: 4 mg Documented by: [id number] Medical Decision Making Differential Diagnosis Differential diagnosis includes: dehydration, viral illness, vasculitis, thrombocytopenia. Medical Records Attestation: I reviewed the patient's medical records. Home Medications Current Medication List: was personally reviewed by me Laboratory Data Attestation: I reviewed the patient's lab results. Result diagrams: 03/09/19 01:17 03/09/19 01:17 Lab Results 03/09/19 03/09/19 Range/Units 01:17 01:17 WBC 16.64 H (4.8-10.8) K/uL RBC 3.41 L (4.2-5.4) M/uL Hgb 10.7 L (12.0-16.0) g/dL Hct 32.9 L (37-47) % MCV 96.5 (80-100) fL MCH 31.4 (25-34) pg MCHC 32.5 (32-36) g/dL RDW Std Deviation 53.3 H (36.4-46.3) fL RDW Coeff of Neva 15.1 H (11.5-14.5) % Plt Count 179 (130-400) K/uL MPV 9.3 (7.4-10.4) fL Immature Gran % (Auto) 0.2 % Neut % (Auto) 92.0 % Lymph % (Auto) 3.4 % Sutton % (Auto) 4.3 % Eos % (Auto) 0.0 % Baso % (Auto) 0.1 % Immature Gran # (Auto) 0.04 H (0.00-0.02) K/uL Neut # (Auto) 15.31 H (1.4-6.5) K/uL Lymph # (Auto) 0.57 L (1.2-3.4) K/uL Sutton # (Auto) 0.71 H (0.11-0.59) K/uL Eos # (Auto) 0.00 (0-0.5) K/uL Baso # (Auto) 0.01 (0-0.2) K/uL Sodium 141 (136-145) mmol/L Potassium 3.2 L (3.5-5.1) mmol/L Chloride 109 H (98-107) mmol/L Carbon Dioxide 25 (21-32) mmol/L Anion Gap 7.0 (3-11) BUN 13 (7-18) mg/dl Creatinine 1.13 (0.6-1.2) mg/dl Est Cr Clr Drug Dosing 46.4 ml/min Est GFR ( Amer) 58.2 Est GFR (Non-Af Amer) 50.3 BUN/Creatinine Ratio 11.5 (10-20) Glucose 122 H (70-99) mg/dl Calcium 7.9 L (8.5-10.1) mg/dl Total Bilirubin 0.5 (0.2-1) mg/dl AST 22 (15-37) U/L ALT 24 (12-78) U/L Alkaline Phosphatase 68 (45-117) U/L Total Protein 6.4 (6.4-8.2) gm/dl Albumin 2.6 L (3.4-5.0) gm/dl Globulin 3.8 (2.5-4.0) gm/dl Albumin/Globulin Ratio 0.7 L (0.9-2) Lipase 64 L (73-393) U/L Blood Pressure Blood Pressure Findings: Elevated blood pressure Blood Pressure Disposition: further management by hospitalist MDM Narrative The patient is a 68 y/o female who presents to the ED w/ CC of intermittent nausea and vomiting beginning 24 hours ago. The patient had a similar episode 1 month ago where she was treated in [place]. At that time, she has significant thrombocytopenia and was treated with steroids. The patient presents again today with nausea vomiting and now also has diarrhea she does have a leukocytosis. The patient's platelet count has dropped. She describes her level at 342 just 2 days ago. Upon presentation earlier today it was 230. Tonight, it is 179. The patient has significant relief of her nausea and vomiting with the IV Zofran. I discussed the case with Dr. Kessler and he will evaluate the patient for further management. Impression & Plan Nausea vomiting and diarrhea, Thrombocytopenia Discharge Plan Visit Data *Final* Discharge Date/Time: 03/09/19 03:08 Chief Complaint: Nausea Stated Complaint: NAUSEA,VOMITING,DIARRHEA ED Provider: Zaina Neff Discharge Problem: Nausea vomiting and diarrhea, Thrombocytopenia Patient Disposition: Admitted As Inpatient Discharge Instructions Interventions: ED Discharge Assessment Last Done: 03/09/19 03:08 The scribe's documentation has been prepared under my direction and personally reviewed by me in its entirety. I confirm that the note above accurately reflects all work, treatment, procedures, and medical decision making performed by me.
[2019-03-09] MEDS: ONDANSETRON INJ 2 MG/ML 2 ML VIAL IV PRN ×2 (07:54→20:20)
[2019-03-09 08:39] LABS: BUN Creatinine Ratio 12.1 (10-20); Calcium 7.9 mg/dl (8.5-10.1); Creatinine Clr Calc Pharmacy 50.6 ml/min; Est GFR (African American) 64.4; Est GFR (Non-African American) 55.6; Potassium 3.6 mmol/L (3.5-5.1)
[2019-03-09 08:44] LABS: Troponin I 0.025 ng/ml (0-0.045)
--- NOTE | 2019-03-09 08:46 | Ultrasound Report ---
ABDOMINAL ULTRASOUND, RIGHT UPPER QUADRANT HISTORY: Right upper quadrant abdominal pain. COMPARISON: PET/CT February 28, 2018. Abdominal series March 08, 2019. FINDINGS: Liver is unremarkable. Caliber of the common bile duct is at the upper limits of normal, me asuring 6 mm. Multiple gallstones within the gallbladder are noted, including a stone within the gall bladder neck. The gallbladder is mildly distended. No sonographic Toribio sign was reported. No gallbl adder wall thickening is noted. There is no pericholecystic fluid. The pancreatic body is normal. Hea d and tail are obscured. There is no right hydronephrosis. IMPRESSION: 1. Cholelithiasis and mild gallbladder distention. No gallbladder wall thickening or sonographic Murp hy sign. The findings are equivocal for acute cholecystitis and a hepatobiliary scan could be obtaine d as indicated. 2. Top normal caliber common bile duct. Electronically signed by: Jamil Mccabe M.D. 03/09/2019 8:45 AM
[2019-03-09] MEDS: DULERA~ORDER AWAITING ACTION SCH ×3 (08:58→23:19)
[2019-03-09] MEDS ORDERED: FAMOTIDINE 20 MG TAB PO SCH (09:00)
[2019-03-09] MEDS ORDERED: NEBIVOLOL HCL 5 MG TAB PO SCH (09:00)
[2019-03-09] MEDS: BusPIRone 15 MG TAB PO SCH ×2 (09:01→21:54)
[2019-03-09] MEDS: ESCITALOPRAM OXALATE 10 MG TAB PO SCH (09:01)
[2019-03-09] MEDS: ACETAMINOPHEN 500 MG TAB PO PRN ×2 (09:40→16:00)
--- NOTE | 2019-03-09 11:14 | Family Medicine Progress Note ---
Date of Service March 09, 2019 Assessment & Plan (1) Nausea & vomitin yo F here with intractable nausea and vomiting a/w loose stools. Plan: -zofran PRN with attention to QTC (currently wnl) -clear liquid diet + IVF hydration x 1day ordered. Abdominal ultrasound revealed cholelithiasis with multiple gallstones in the gallbladder and one in the biliary trunk. Did not show any signs of pericholecystic fluid or acute cholecystitis. Given patient's afebrile status, lack of Toribio sign, she may benefit from elective cholecystectomy. However given her elevated white blood cell count to 16,000 and continuing nausea, would recommend sooner rather than later preferably this week. Would appreciate surgery's recommendations. -given that this is her second significant bout in a month, may benefit outpatient follow up with gastroenterology query new food allergy vs other etiol ogy If surgery recommends against cholecystectomy. FEN/GI: N.p.o. DVT ppx: scds CODE STATUS: FULL as d/w pt and at bedside DISPO: med/surg awaiting stool cx's. (2) Loose stools: Stool studies ordered inc giardia, h pylori, WBC, culture (3) Epigastric discomfort: - Toribio sign on my exam Given history of GERD and mixed presentation with cholelithiasis may benefit from famotidine twice a day instead of once a day (4) Leukocytosis: Could be consistent with gastroenteritis, viral v bacterial Cannot rule out cholecystitis at this point. (5) HTN (hypertension): cont home nebivolol (6) Asthma: cont home inhalers (7) Anxiety: cont home ativan, buspirone, escitalopram Supervising Physician Co-Signing Physician Notes I personally examined the patient and verified all beaver points of history and exam, discussed case, and agree with decision making with Dr Daniels. Feeling better right now, but also not really eating. She notes that she is starting to notice more pain in the right upper part of her abdomen. Vitals noted, in general she is awake and alert pleasant no distress. HEENT normocephalic atraumatic mucous membranes moist. Abdomen is soft she right now has more epigastric tenderness with mild voluntary guarding than right upper qu adrant, but did have right upper quadrant earlier to Dr. Daniels Epigastric pain nausea vomitingdifferential seems to be biliary/cholecystitis that is evolving versus peptic ulcer disease spectrum. Even her leukocytosis and how sick she seems to have been during her prior hospitalization, favor biliary. Consider HIDA scan, but will ask for surgical opinion first. If things end up not being anything biliary, then would ask GI to check EGD. Continue serial exams and supportive care. Despite leukocytosis, with no fever and no clear nidus for infection, no clear indication for antibiotics right now. Otherwise as above Subjective Patient is feeling well this a.m. Still feels nauseous. Denies any abdominal pain or changes in bowel movements. Denies any exposure to camping, well water, sick contacts. Patient had only one episode of watery diarrhea, After which she has not had any issues with bowel movements. Patient denies any shortness of breath, chest pain, headache, blurry vision, peripheral numbness or tingling. Patient does have a history of GERD which was previously treated with Prilosec and then changed to famotidine once a day. She was recently seen in a different hospital for similar but worse version of presenting symptoms where they found stones in her gallbladder but discharged her home with antinausea medication and did no other interventions. Review of Systems Constitutional: + chills; no fever and no weakness Respiratory: no cough and no dyspnea Cardiovascular: no chest pain, no palpitations and no edema Gastrointestinal: + heartburn and + nausea; no abdominal pain, no bloating, no vomiting, no cramping, no change in bowel habits and no diarrhea/loose stools Physical Exam Constitutional: In no acute distress lying in bed Respiratory: Lungs bilaterally clear to auscultation on exam no crackles wheezing rhonchi appreciated. Patient has no distress of breathing. Cardiovascular: Regular rate and rhythm, no murmurs, rubs, gallops, appreciated. No peripheral edema or calf tenderness appreciated. Gastrointestinal (Abdomen): Abdomen is normal in appearance soft tender to palpation of the epigastric region mildly tender in right upper quadrant however negative Toribio sign upon further palpation. Bowel sounds normal. No guarding, rigidity, or firmness appreciated on abdominal exam. Results & Data Vital Signs (Past 12 Hours) Vital Signs Temp Pulse Pulse Pulse Resp BP BP 03/09/19 07:33 36.7 C 90 18 03/09/19 03:38 36.9 C 95 H 20 114/72 03/09/19 03:08 93 H 18 125/74 03/09/19 02:03 91 H 18 138/64 03/09/19 01:17 03/09/19 00:12 36.7 C 118 H 18 111/58 L BP Pulse Ox 03/09/19 07:33 133/76 94 03/09/19 03:38 94 03/09/19 03:08 95 03/09/19 02:03 95 03/09/19 01:17 94 03/09/19 00:12 95 PG Care Time/CCT Total # of Minutes Spent Total Time Spent with Patient: Total time spent is greater than 50% in coordination of care (as documented) at patient's floor/unit and/or counseling patient: Resident Activity Tracking Resident Involvement: Resident Care Provided Care Provided: Adult Hospital Medicine (1) Leukocytosis Leukocytosis type: unspecified Qualified Code(s): D72.829 - Elevated white blood cell count, unspecified
[2019-03-09] MEDS ORDERED: LORazepam 1 MG TAB ONE (11:19)
[2019-03-09] MEDS: LORazepam 1 MG TAB PO SCH ×2 (11:20→21:55)
[2019-03-09] MEDS ORDERED: CALCIUM CARBONATE 500 MG CHEWABLE TAB PO PRN (21:38)
[2019-03-09] MEDS: NEBIVOLOL HCL 5 MG TAB PO SCH (21:56)
[2019-03-10] MEDS: SODIUM CHLOR 0.45% + 20MEQ KCL 20 MEQ/1,000 ML BAG IV SCH (00:25)
[2019-03-10 07:52] LABS: Basophils # (auto) 0.01 K/uL (0-0.2); Basophils % (auto) 0.1 %; Eosinophils # (auto) 0.01 K/uL (0-0.5); Eosinophils % (auto) 0.1 %; Hematocrit (blood only) 29.6 % (37-47); Hemoglobin 9.7 g/dL (12.0-16.0); Immature Granulocytes # (auto) 0.09 K/uL (0.00-0.02); Immature Granulocytes % (auto) 0.5 %; Lymphocytes # (auto) 1.02 K/uL (1.2-3.4); Lymphocytes % (auto) 5.1 %; Mean Corpuscular Hemoglobin 31.3 pg (25-34); Mean Corpuscular Hgb Conc 32.8 g/dL (32-36); Mean Corpuscular Volume 95.5 fL (80-100); Mean Platelet Volume 9.5 fL (7.4-10.4); Monocytes # (auto) 1.52 K/uL (0.11-0.59); Monocytes % (auto) 7.6 %; Neutrophils # (auto) 17.32 K/uL (1.4-6.5); Neutrophils % (auto) 86.6 %; Platelet Count 155 K/uL (130-400); RDW Coefficient of Variation 15.3 % (11.5-14.5); RDW Standard Deviation 53.9 fL (36.4-46.3); White Blood Count 19.97 K/uL (4.8-10.8)
[2019-03-10] MEDS: DULERA~ORDER AWAITING ACTION SCH (08:03)
[2019-03-10 08:05] LABS: Albumin Level 2.1 gm/dl (3.4-5.0); BUN Creatinine Ratio 11.9 (10-20); Calcium 7.7 mg/dl (8.5-10.1); Creatinine Clr Calc Pharmacy 48.7 ml/min; Est GFR (African American) 61.5; Est GFR (Non-African American) 53.1; Potassium 3.9 mmol/L (3.5-5.1)
[2019-03-10] MEDS: BusPIRone 15 MG TAB PO SCH ×2 (08:07→20:10)
[2019-03-10 08:08] LABS: Albumin Globulin Ratio 0.6 (0.9-2); Bilirubin,Total 0.3 mg/dl (0.2-1); Globulin 3.6 gm/dl (2.5-4.0); Total Protein 5.7 gm/dl (6.4-8.2)
[2019-03-10] MEDS: FAMOTIDINE 20 MG TAB PO SCH ×2 (08:08→20:14)
[2019-03-10] MEDS: ESCITALOPRAM OXALATE 10 MG TAB PO SCH (08:08)
--- NOTE | 2019-03-10 08:51 | Family Medicine Progress Note ---
Date of Service March 10, 2019 Assessment & Plan (1) Nausea & vomitin yo F here with intractable nausea and vomiting a/w loose stools. Plan: -zofran PRN with attention to QTC (currently wnl) -NPO since midnight until surgery was able to evaluate her Abdominal ultrasound revealed cholelithiasis with multiple gallstones in the gallbladder and one in the biliary trunk. Did not show any signs of pericholecystic fluid or acute cholecystitis. Given patient's afebrile status, lack of Toribio sign, she may benefit from elective cholecystectomy. However given her elevated white blood cell count to 16,000 and continuing nausea, would recommend sooner rather than later preferably this week. -HIDA scan ordered to assess gallbladder function. -given that this is her second significant bout in a month may have a degree of gastritis in addition to her symptoms secondary to cholelithiasis. Gastroenterology consult placed would appreciate recommendations for upper endoscopy to rule out peptic ulcer disease or mild to moderate gastritis. FEN/GI: N.p.o. DVT ppx: scds CODE STATUS: FULL as d/w pt and at bedside DISPO: med/surg awaiting stool cx's. (2) Loose stools: Stool studies show C. difficile negative, no white blood cells present and stool culture. Still awaiting H. pylori studies. Also awaiting Giardia. (3) Epigastric discomfort: - Toribio sign on my exam Patient takes famotidine once a day at home was increased to twice a day in the hospital; increased to IV Protonix after patient's symptoms rapidly increased to include chills and severe nausea and retching. (4) Leukocytosis: White blood cell count has been steadily increasing daily to being 19,000 today. Has yet to be febrile however did develop severe chills this afternoon (5) HTN (hypertension): cont home nebivolol (6) Asthma: cont home inhalers (7) Anxiety: cont home ativan, buspirone, escitalopram Supervising Physician Co-Signing Physician Notes I personally examined the patient and verified all beaver points of history and exam, discussed case, and agree with decision making with Dr Daniels. When I see her, she is having shaking chills, and fairly severe nausea. Vitals noted, in general she is awake and alert, laying in bed covered up visibly shaking, as well as burping and retching repeatedly. HEENT normocephalic atraumatic mucous membranes moist. Abdomen soft, but has definite epigastric and to a degree right upper quadrant tenderness no guarding/rebound/rigidity Epigastric pain nausea vomitingdifferential seems to be biliary/cholecystitis that is evolving versus peptic ulcer disease spectrum. Leukocytosis worsening was nonspecific this morning, but now she is having rigors, concerning for infection. Check blood cultures, start empiric antibiotics presuming gram- negative or anaerobic enteritis type infection, HIDA scan has been ordered, will ask GI to see to consider EGD. Otherwise as above Subjective This morning attested to pain being mildly worse but still occuring in phases. Describes epigastric pain as 810 with RUQ pain 6/10. Nausea controlled with zofran. Had an episode of chills overnight. In the afternoon when being examined with Dr. Jones, patient was visibly shaking with chills and had severe nausea with wretching; a drastic change from her appearance in the morning. Review of Systems Constitutional: + chills; no fever and no sweats Respiratory: no cough, no dyspnea and no pain on inspiration Cardiovascular: no chest pain, no palpitations and no edema Gastrointestinal: + abdominal pain, + heartburn, + nausea and + diarrhea/loose stools; no vomiting, no pain with swallowing, no cramping and no constipation Physical Exam Constitutional: + ill appearing, + thin and cooperative Respiratory: normal respiratory effort and able to speak in complete sentences; no respiratory distress and no cough Auscultation: lungs clear to auscultation bilaterally; breath sounds present, no diminished lung sounds, no crackles and no wheezes Cardiovascular: RRR, no murmur, no edema Gastrointestinal (Abdomen): Inspection/Auscultation: abdomen normal to inspection and + hyperactive bowel sounds; abdomen not distended and no abdominal edema Percussion/Palpation: + abdomen tender (epigastric > RUQ) and abdomen soft; no guarding and abdomen not rigid Toribio's sign negative Results & Data Vital Signs (Past 12 Hours) Vital Signs Temp Pulse Resp BP Pulse Ox 03/10/19 08:00 36.7 C 90 18 133/77 94 03/10/19 04:00 36.6 C 03/09/19 23:40 37.6 C H 103 H 18 103/67 93 Laboratory Results WBC 19.97 K/uL (4.8-10.8) H 03/10/19 07:35 RBC 3.10 M/uL (4.2-5.4) L 03/10/19 07:35 Hgb 9.7 g/dL (12.0-16.0) L 03/10/19 07:35 Hct 29.6 % (37-47) L 03/10/19 07:35 MCV 95.5 fL (80-100) 03/10/19 07:35 MCH 31.3 pg (25-34) 03/10/19 07:35 MCHC 32.8 g/dL (32-36) 03/10/19 07:35 RDW Std Deviation 53.9 fL (36.4-46.3) H 03/10/19 07:35 RDW Coeff of Neva 15.3 % (11.5-14.5) H 03/10/19 07:35 Plt Count 155 K/uL (130-400) 03/10/19 07:35 MPV 9.5 fL (7.4-10.4) 03/10/19 07:35 Immature Gran % (Auto) 0.5 % 03/10/19 07:35 Neut % (Auto) 86.6 % 03/10/19 07:35 Lymph % (Auto) 5.1 % 03/10/19 07:35 Stanley % (Auto) 7.6 % 03/10/19 07:35 Eos % (Auto) 0.1 % 03/10/19 07:35 Baso % (Auto) 0.1 % 03/10/19 07:35 Immature Gran # (Auto) 0.09 K/uL (0.00-0.02) H 03/10/19 07:35 Neut # (Auto) 17.32 K/uL (1.4-6.5) H 03/10/19 07:35 Lymph # (Auto) 1.02 K/uL (1.2-3.4) L 03/10/19 07:35 Stanley # (Auto) 1.52 K/uL (0.11-0.59) H 03/10/19 07:35 Eos # (Auto) 0.01 K/uL (0-0.5) 03/10/19 07:35 Baso # (Auto) 0.01 K/uL (0-0.2) 03/10/19 07:35 Sodium 140 mmol/L (136-145) 03/10/19 06:59 Potassium 3.9 mmol/L (3.5-5.1) 03/10/19 06:59 Chloride 112 mmol/L (98-107) H 03/10/19 06:59 Carbon Dioxide 19 mmol/L (21-32) L 03/10/19 06:59 Anion Gap 9.0 (3-11) 03/10/19 06:59 BUN 13 mg/dl (7-18) 03/10/19 06:59 Creatinine 1.08 mg/dl (0.6-1.2) 03/10/19 06:59 Est Cr Clr Drug Dosing 48.7 ml/min 03/10/19 06:59 Est GFR ( Amer) 61.5 03/10/19 06:59 Est GFR (Non-Af Amer) 53.1 03/10/19 06:59 BUN/Creatinine Ratio 11.9 (10-20) 03/10/19 06:59 Glucose 89 mg/dl (70-99) 03/10/19 06:59 Calcium 7.7 mg/dl (8.5-10.1) L 03/10/19 06:59 Total Bilirubin 0.3 mg/dl (0.2-1) 03/10/19 06:59 AST 15 U/L (15-37) 03/10/19 06:59 ALT 16 U/L (12-78) 03/10/19 06:59 Alkaline Phosphatase 68 U/L (45-117) 03/10/19 06:59 Troponin I < 0.015 ng/ml (0-0.045) 03/09/19 14:25 Total Protein 5.7 gm/dl (6.4-8.2) L 03/10/19 06:59 Albumin 2.1 gm/dl (3.4-5.0) L 03/10/19 06:59 Globulin 3.6 gm/dl (2.5-4.0) 03/10/19 06:59 Albumin/Globulin Ratio 0.6 (0.9-2) L 03/10/19 06:59 Lipase 64 U/L (73-393) L 03/09/19 01:17 Stl C. diff Tox B Gene Negative Cdiff Gene (Neg) 03/09/19 14:41 PG Care Time/CCT Total # of Minutes Spent Total Time Spent with Patient: Total time spent is greater than 50% in coordination of care (as documented) at patient's floor/unit and/or counseling patient: Resident Activity Tracking Resident Involvement: Resident Care Provided Care Provided: Adult Hospital Medicine (1) Leukocytosis Leukocytosis type: unspecified Qualified Code(s): D72.829 - Elevated white blood cell count, unspecified
[2019-03-10] MEDS: ACETAMINOPHEN 500 MG TAB PO PRN (09:10)
[2019-03-10] MEDS: ONDANSETRON INJ 2 MG/ML 2 ML VIAL IV PRN ×2 (09:11→14:38)
--- NOTE | 2019-03-10 12:24 | Surgery Consultation ---
Date of Consultation March 10, 2019 Assessment & Plan (1) Nausea vomiting and diarrhea: This patient has some right upper quadrant pain and tenderness with cholelithiasis but no evidence of cholecystitis by ultrasound. I will order a HIDA scan to try to further delineate presence or absence of cystic duct obstruction. We will await the results of that make further decisions when it is available. History of Present Illness Requesting Physician: Dr. Jones Attending Physician: Fabrizio Arreola MD History of Present Illness I have been asked by Dr. Jones to see this 68-year-old female who presented with what is now a 2-day history of discomfort in the upper abdomen located mostly in the right upper quadrant but also in the epigastrium. The discomfort accompanied the onset of nausea and vomiting along with diarrhea. She had no melena, hematochezia or hematemesis she did not eat anything unusual. She had an episode similar to this about a month ago while she was in [place]. The symptoms at that time were identical to the symptoms requiring this admission. However at that time she developed what by her description sounds like acute kidney injury. That all resolved. She been pain-free until 2 days ago. At the present time the pain is decreased to about a 1-2 out of 10 and is intermittent. She has occasional nausea but has not vomited since admission. She has not had diarrhea. She underwent an ultrasound of the right upper quadrant that demonstrated cholelithiasis but there was no choledocholithiasis. She had no gallbladder wall thickening. The common bile duct measured 7 mm. Her LFTs have been normal. Her lipase was not elevated. Allergies Allergy/AdvReac Type Severity Reaction Status Date / Time mirtazapine Allergy Severe STRESS Verified 03/09/19 00:40 INDUCED CARDIOMYOPATHY levofloxacin Allergy Intermediate Hives Verified 03/09/19 00:40 Quinolones Allergy Intermediate HIVES Verified 03/09/19 00:40 sertraline Allergy Intermediate MAKES HER Verified 03/09/19 00:40 "CRAZY". Penicillins Allergy Mild RASH-KEFLEX Verified 03/09/19 00:[address] AMANDA Home Medications Home Medications Medication Instructions Recorded Confirmed Type mometasone-formoterol HFA 200 2 puffs INH BID #13 gm 02/13/19 03/09/19 Rx mcg-5 mcg/actuation aerosol inhaler buspirone 15 mg tablet 15 mg PO BID tab 03/06/19 03/09/19 History escitalopram 20 mg tablet 30 mg PO QAM tab 03/06/19 03/09/19 History fexofenadine 180 mg tablet 180 mg PO DAILY PRN tab 03/06/19 03/09/19 History lorazepam 1 mg tablet 1 mg PO HS tab 03/06/19 03/09/19 History nebivolol 2.5 mg tablet 2.5 mg PO QAM tab 03/06/19 03/09/19 History acetaminophen [Tylenol Extra 1,000 mg PO Q6H PRN 03/08/19 03/09/19 History Strength] famotidine [Pepcid] 40 mg PO QAM 03/08/19 03/09/19 History ferrous sulfate [iron] 325 mg PO BID 03/08/19 03/09/19 History ipratropium-albuterol [Combivent 1 puff INHALATION Q6H PRN 03/08/19 03/09/19 History Respimat] ondansetron HCl [Zofran] 4 mg PO Q6H PRN #10 tab 03/08/19 03/09/19 Rx Patient History Medical History Anxiety (Chronic) Asthma (Chronic) Heart disease (Chronic) HTN (hypertension) (Chronic) Surgical History S/P lobectomy of lung S/P placement of cardiac pacemaker Wrist fracture, left S/P repair Family History Other Cancer Heart disease Hypertension Lung disease Social History Preferred Language: Luxembourgish Communication Ability: Effective Pharmacy Resource Tech Required: No Beliefs That Will Affect Care: None Current Living Situation: Spouse Other Information That Helps Us Care for You: No Feels Safe at Home: Yes Safety Concerns: Feels Safe At This Time Smoking Status: Never smoker Hx Alcohol Use: Yes Hx Substance Use: No Physical Exam Constitutional: no acute distress Respiratory: normal respiratory effort, lungs clear to auscultation Cardiovascular: Rate/Rhythm: regular rate and regular rhythm Gastrointestinal (Abdomen): Inspection/Auscultation: normal bowel sounds; abdomen not distended Percussion/Palpation: + abdomen tender (Mild to deep palpation in the right upper quadrant) and abdomen soft; no guarding Skin: no rashes, warm and dry Lymphatic: no cervical lymphadenopathy Results & Data Vital Signs (Past 12 Hours) Vital Signs Temp Pulse Resp BP Pulse Ox 03/10/19 08:00 36.7 C 90 18 133/77 94 03/10/19 04:00 36.6 C Laboratory Results 03/10/19 03/10/19 03/09/19 Range/Units 07:35 06:59 14:41 WBC 19.97 H (4.8-10.8) K/uL RBC 3.10 L (4.2-5.4) M/uL Hgb 9.7 L (12.0-16.0) g/dL Hct 29.6 L (37-47) % MCV 95.5 (80-100) fL MCH 31.3 (25-34) pg MCHC 32.8 (32-36) g/dL RDW Std Deviation 53.9 H (36.4-46.3) fL RDW Coeff of Neva 15.3 H (11.5-14.5) % Plt Count 155 (130-400) K/uL MPV 9.5 (7.4-10.4) fL Immature Gran % (Auto) 0.5 % Neut % (Auto) 86.6 % Lymph % (Auto) 5.1 % Mcintosh % (Auto) 7.6 % Eos % (Auto) 0.1 % Baso % (Auto) 0.1 % Immature Gran # (Auto) 0.09 H (0.00-0.02) K/uL Neut # (Auto) 17.32 H (1.4-6.5) K/uL Lymph # (Auto) 1.02 L (1.2-3.4) K/uL Mcintosh # (Auto) 1.52 H (0.11-0.59) K/uL Eos # (Auto) 0.01 (0-0.5) K/uL Baso # (Auto) 0.01 (0-0.2) K/uL Sodium 140 (136-145) mmol/L Potassium 3.9 (3.5-5.1) mmol/L Chloride 112 H (98-107) mmol/L Carbon Dioxide 19 L (21-32) mmol/L Anion Gap 9.0 (3-11) BUN 13 (7-18) mg/dl Creatinine 1.08 (0.6-1.2) mg/dl Est Cr Clr Drug Dosing 48.7 ml/min Est GFR ( Amer) 61.5 Est GFR (Non-Af Amer) 53.1 BUN/Creatinine Ratio 11.9 (10-20) Glucose 89 (70-99) mg/dl Calcium 7.7 L (8.5-10.1) mg/dl Total Bilirubin 0.3 (0.2-1) mg/dl AST 15 (15-37) U/L ALT 16 (12-78) U/L Alkaline Phosphatase 68 (45-117) U/L Troponin I (0-0.045) ng/ml Total Protein 5.7 L (6.4-8.2) gm/dl Albumin 2.1 L (3.4-5.0) gm/dl Globulin 3.6 (2.5-4.0) gm/dl Albumin/Globulin Ratio 0.6 L (0.9-2) Stl C. diff Tox B Gene (Neg) Stool H. pylori Ag Pending Giardia Antigen 03/09/19 03/09/19 03/09/19 Range/Units 14:41 14:41 14:25 WBC (4.8-10.8) K/uL RBC (4.2-5.4) M/uL Hgb (12.0-16.0) g/dL Hct (37-47) % MCV (80-100) fL MCH (25-34) pg MCHC (32-36) g/dL RDW Std Deviation (36.4-46.3) fL RDW Coeff of Neva (11.5-14.5) % Plt Count (130-400) K/uL MPV (7.4-10.4) fL Immature Gran % (Auto) % Neut % (Auto) % Lymph % (Auto) % Mcintosh % (Auto) % Eos % (Auto) % Baso % (Auto) % Immature Gran # (Auto) (0.00-0.02) K/uL Neut # (Auto) (1.4-6.5) K/uL Lymph # (Auto) (1.2-3.4) K/uL Mcintosh # (Auto) (0.11-0.59) K/uL Eos # (Auto) (0-0.5) K/uL Baso # (Auto) (0-0.2) K/uL Sodium (136-145) mmol/L Potassium (3.5-5.1) mmol/L Chloride (98-107) mmol/L Carbon Dioxide (21-32) mmol/L Anion Gap (3-11) BUN (7-18) mg/dl Creatinine (0.6-1.2) mg/dl Est Cr Clr Drug Dosing ml/min Est GFR ( Amer) Est GFR (Non-Af Amer) BUN/Creatinine Ratio (10-20) Glucose (70-99) mg/dl Calcium (8.5-10.1) mg/dl Total Bilirubin (0.2-1) mg/dl AST (15-37) U/L ALT (12-78) U/L Alkaline Phosphatase (45-117) U/L Troponin I < 0.015 (0-0.045) ng/ml Total Protein (6.4-8.2) gm/dl Albumin (3.4-5.0) gm/dl Globulin (2.5-4.0) gm/dl Albumin/Globulin Ratio (0.9-2) Stl C. diff Tox B Gene Negative Cdiff Gene (Neg) Stool H. pylori Ag Giardia Antigen Pending Diagnostic Findings ABDOMINAL ULTRASOUND, RIGHT UPPER QUADRANT HISTORY: Right upper quadrant abdominal pain. COMPARISON: PET/CT February 28, 2018. Abdominal series March 08, 2019. FINDINGS: Liver is unremarkable. Caliber of the common bile duct is at the upper limits of normal, measuring 6 mm. Multiple gallstones within the gallbladder are noted, including a stone within the gallbladder neck. The gallbladder is mildly distended. No sonographic Toribio sign was reported. No gallbladder wall thickening is noted. There is no pericholecystic fluid. The pancreatic body is normal. Head and tail are obscured. There is no right hydronephrosis. IMPRESSION: 1. Cholelithiasis and mild gallbladder distention. No gallbladder wall thickening or sonographic Toribio sign. The findings are equivocal for acute cholecystitis and a hepatobiliary scan could be obtained as indicated. 2. Top normal caliber common bile duct.
[2019-03-10] MEDS ORDERED: ONDANSETRON INJ 2 MG/ML 2 ML VIAL IV PRN (15:22)
[2019-03-10] MEDS ORDERED: PANTOprazole 40 MG TAB PO STA (15:31)
[2019-03-10] MEDS ORDERED: ONDANSETRON HCL 8 MG in DEXTROSE 5% 50 ML IV ONE (16:00)
[2019-03-10] MEDS: metroNIDAZOLE 500 MG/100 ML BAG IV SCH ×2 (16:21→23:37)
[2019-03-10] MEDS: PANTOprazole 40 MG TAB PO SCH ×2 (16:21→20:13)
[2019-03-10] MEDS ORDERED: cefTRIAXone SODIUM 1,000 MG in DEXTROSE 5% 50 ML IV SCH (17:00)
[2019-03-10] MEDS: LORazepam 1 MG TAB PO SCH (20:10)
[2019-03-10] MEDS: NEBIVOLOL HCL 5 MG TAB PO SCH (20:11)
[2019-03-10] MEDS: MOMETASONE/FORMOTEROL INH SCH (20:14)
[2019-03-10] MEDS: SODIUM CHLORIDE 0.9% 1000ML 1,000 ML IV SCH (20:15)
[2019-03-11] MEDS: ACETAMINOPHEN 500 MG TAB PO PRN ×2 (02:31→16:07)
[2019-03-11 07:53] LABS: Basophils # (auto) 0.01 K/uL (0-0.2); Basophils % (auto) 0.1 %; Eosinophils # (auto) 0.03 K/uL (0-0.5); Eosinophils % (auto) 0.2 %; Hematocrit (blood only) 28.5 % (37-47); Hemoglobin 9.3 g/dL (12.0-16.0); Immature Granulocytes # (auto) 0.03 K/uL (0.00-0.02); Immature Granulocytes % (auto) 0.2 %; Lymphocytes % (auto) 7.6 %; Mean Corpuscular Hemoglobin 31.2 pg (25-34); Mean Corpuscular Hgb Conc 32.6 g/dL (32-36); Mean Corpuscular Volume 95.6 fL (80-100); Mean Platelet Volume 10.4 fL (7.4-10.4); Monocytes # (auto) 0.98 K/uL (0.11-0.59); Monocytes % (auto) 7.5 %; Neutrophils % (auto) 84.4 %; Platelet Count 138 K/uL (130-400); RDW Coefficient of Variation 15.4 % (11.5-14.5); RDW Standard Deviation 53.9 fL (36.4-46.3); Red Blood Count 2.98 M/uL (4.2-5.4); White Blood Count 13.15 K/uL (4.8-10.8)
[2019-03-11 08:28] LABS: Albumin Globulin Ratio 0.6 (0.9-2); Albumin Level 2.1 gm/dl (3.4-5.0); BUN Creatinine Ratio 15.1 (10-20); Bilirubin,Total 0.4 mg/dl (0.2-1); Calcium 8.4 mg/dl (8.5-10.1); Creatinine Clr Calc Pharmacy 56.8 ml/min; Est GFR (African American) 73.7; Est GFR (Non-African American) 63.6; Globulin 3.7 gm/dl (2.5-4.0); Potassium 3.1 mmol/L (3.5-5.1); Total Protein 5.8 gm/dl (6.4-8.2)
[2019-03-11] MEDS ORDERED: SINCALIDE 1.6 MCG in 0.9 % SODIUM CHLORIDE 100 ML IV SCH (08:30)
--- NOTE | 2019-03-11 10:09 | Nuclear Medicine Report ---
NUCLEAR MEDICINE HEPATOBILIARY SCAN WITH EJECTION FRACTION HISTORY: RUQ pain, gallstones COMPARISON: Abdominal ultrasound 03/09/2019. TECHNIQUE: Immediately following the intravenous administration of 5.8 mCi Tc-99m Choletec, dynamic a nterior abdominal imaging pre/post 1.6 mcg of Kinevac was performed. FINDINGS: Uniform hepatic tracer accumulation is shown. Prompt intrahepatic biliary excretion is seen. The gall bladder, common bile duct, and small bowel are all visualized by 15 minutes. This appearance represen ts the normal sequence of biliary excretion. The gall bladder ejection fraction following administration of Kinevac was 49% (normal >35%). IMPRESSION: 1. No evidence for cystic duct obstruction. 2. Gallbladder ejection fraction calculated to be 49 %. Electronically signed by: Hany Rogers M.D. 03/11/2019 10:08 AM
[2019-03-11] MEDS: metroNIDAZOLE 500 MG/100 ML BAG IV SCH (10:13)
[2019-03-11] MEDS: FAMOTIDINE 20 MG TAB PO SCH ×2 (10:15→20:39)
[2019-03-11] MEDS: BusPIRone 15 MG TAB PO SCH ×2 (10:15→20:37)
[2019-03-11] MEDS: MOMETASONE/FORMOTEROL INH SCH ×2 (10:15→20:39)
[2019-03-11] MEDS: PANTOprazole 40 MG TAB PO SCH ×2 (10:15→20:37)
[2019-03-11] MEDS: ESCITALOPRAM OXALATE 10 MG TAB PO SCH (10:15)
[2019-03-11] MEDS: SODIUM CHLORIDE 0.9% 1000ML 1,000 ML IV SCH ×2 (10:24→21:12)
[2019-03-11] MEDS: ONDANSETRON HCL 8 MG in DEXTROSE 5% 50 ML IV PRN ×2 (10:50→17:07)
[2019-03-11] MEDS ORDERED: VANCOMYCIN CONSULT ACTIVE PRN (12:08)
[2019-03-11] MEDS ORDERED: VANCOMYCIN HCL 500 MG in SODIUM CHLORIDE 0.9% 250 ML IV SCH (12:15)
[2019-03-11] MEDS ORDERED: VANCOMYCIN HCL 2,000 MG in SODIUM CHLORIDE 0.9% 500 ML IV ONE (12:45)
--- NOTE | 2019-03-11 14:49 | Pharmacy Report ---
Pharmacy Abx Initial Consult - Date of Service March 11, 2019 - Pharmacy Dosing Scope Date of Consult: 03/11 Consultation requested by: Dr. Cedillo Pharmacy is consulted to initiate vancomycin IV dosing therapy, order appropriate labs and adjust drug dose/frequency. - Subjective The patient is a 68 year old F admitted on 03/11/19 11:11. - Objective Height: 5 ft 2 in Weight: 77.954 kg Vital Signs (Past 12hrs): Vital Signs Temp Pulse Resp BP Pulse Ox 03/11/19 07:16 36.8 C 81 19 150/80 H 96 Lab Results (24hrs): Laboratory Tests (24 Hours) 03/11/19 03/11/19 06:51 06:51 WBC 13.15 H Neut # (Auto) 11.10 H Creatinine 0.93 Est Cr Clr Drug Dosing 56.8 Micro Results: 03/10/19 15:50 Anaerobic Blood Culture - Pending Blood 03/10/19 15:51 Anaerobic Blood Culture - Pending Blood 03/09/19 14:41 WBC Smear - Final Stool - Assessment & Plan Assessment 68 year old F admitted with n/v and diarrhea, concern for cholelithiasis. Surgery saw patient and no evidence of cholecystitis. Ordered HIDA scan to determine if obstruction is present. Patient currently on rocephin and flagyl, then vancomycin added today likely due to positive blood cultures. Per provider note yesterday, patient with severe chills/nausea. Patient remains afebrile, leukocytosis is trending down Plan Vancomycin IV * Patient received loading dose of vancomycin 2000 mg (~25 mg/kg) x 1 * Will start maintenance dose of vancomycin 1000 mg iv q 16 hrs to achieve estimated trough ~15-20 mcg/ml * Estimated kinetics: t1/2~14 hrs, ke~14 hr-1, crcl~ 56 ml/min -appears to be at her baseline Scr * PCR on blood cx's returned as negative MRSA, positive staph aureus - did try and contact provider to determine if vancomycin (MRSA coverage) still warranted, however no response back yet * Ideally ancef likely more appropriate agent for MSSA bacteremia - will continue to follow cultures * Will wait to see if vancomycin is continued >48 hrs before ordering trough level Pharmacy will continue to follow and will adjust dose/frequency as necessary. Thank you.
--- NOTE | 2019-03-11 14:57 | Family Medicine Progress Note ---
Date of Service March 11, 2019 Assessment & Plan (1) Nausea & vomitin yo F here with intractable nausea and vomiting a/w loose stools. RUQ and epigastric Abdominal pain w/ nausea and vomiting Abdominal ultrasound revealed cholelithiasis with multiple gallstones in the gallbladder and one in the biliary trunk. Did not show any signs of pericholecystic fluid or acute cholecystitis. -HIDA scan showed no evidence of cystic duct obstruction and normal EF -given that this is her second significant bout in a month may have a degree of gastritis in addition to her symptoms secondary to cholelithiasis. Gastroenterology rec EGD tomorrow, NPO after midnight -Zofran PRN with attention to QTC (currently wnl) Bacteremia w/ 2 positive blood cultures (gram positive cocci) - WBC 13.15 improving, afebrile overnight, HR: 95 - MRSA pcr negative, waiting on sensitivities - ECHO TTE today (03/11) could not definitively rule out vegetation - ID consulted - abx.: Cefazolin sodium 2,000 mg in 15 mls at 3.75 mls/min IV Q8H - consider THERESA to further evaluate for endocarditis Hypokalemia likely 2/2 decreased intake - K 3.1 today - K rider X2 ordered - will recheck K tomorrow Loose stool - C. diff neg, awaiting on other stool labs to finalize HTN - continue home meds Asthma - continue home inhalers Anxiety - continue escitalopram, ativan and buspirone FEN/GI: liquid diet tonight, NPO after midnight for EGD tomorrow DVT ppx: scds CODE STATUS: FULL as d/w pt and at bedside DISPO: med/surg awaiting stool cx's. (2) Bacteremia: (3) Loose stools: (4) HTN (hypertension): Supervising Physician Co-Signing Physician Notes Resident Physician Supervision Note: I independently interviewed and examined the patient and verified the beaver history and physical, reviewed labs and image studies, discussed the case with the resident Dr. Sam and agree with the findings and care plan. Subjective Patient was initially getting her HIDA scan when I went to see her. When she returned she mentioned that she was having some nausea with the oral medications that she was taking. She denied any pain and no concerns overnight, no fevers or chills. She has had 4 stools over the last 24 hours and they were chunky as well as solid. There has been no blood or black stool. She mentioned that she had a pacemaker placed 10 years ago. Review of Systems Constitutional: no fever and no chills Respiratory: denies shortness of breath Cardiovascular: no chest pain and no palpitations Gastrointestinal: no abdominal pain, no blood in stools and no melena Genitourinary: no dysuria, no difficulty urinating, no urinary frequency and no urinary hesitancy Neurologic: no confusion alert and oriented Physical Exam Constitutional: well developed and well nourished; no acute distress Respiratory: normal respiratory effort, lungs clear to auscultation Cardiovascular: RRR, no murmur, no edema Gastrointestinal (Abdomen): normal bowel sounds with tenderness to palpation in the RUQ Results & Data Vital Signs (Past 12 Hours) Vital Signs Temp Pulse Resp BP Pulse Ox 03/11/19 07:16 36.8 C 81 19 150/80 H 96 PG Care Time/CCT Total # of Minutes Spent Total Time Spent with Patient: Total time spent is greater than 50% in coordination of care (as documented) at patient's floor/unit and/or counseling patient: Resident Activity Tracking Resident Involvement: Resident Care Provided Care Provided: Adult Hospital Medicine
--- NOTE | 2019-03-11 15:13 | Progress Note ---
DATE: 03/11/2019 REASON FOR EVALUATION: Nausea and vomiting and abdominal pain. HISTORY OF PRESENT ILLNESS: The patient is a 68-year-old who began experiencing pain in the mid and upper abdomen 3 days ago. The pain is constant, associated with nausea and vomiting. She has not vomited since being hospitalized. She had similar episode a month ago and was hospitalized in [place], [place] for 2 days. At that time, her platelet count was low and her kidney function was compromised and that is with her main focus was but since being hospitalized in [place], she had an ultrasound which showed gallstones, biliary scan showed normal gallbladder function, however. The patient takes no aspirin or nonsteroidals, has not had a previous ulcer. PAST MEDICAL HISTORY: Remarkable for hypertension, asthma, anxiety. She had a lobectomy of the lung. She has a pacemaker. She has a wrist fracture in the past. FAMILY HISTORY: Positive for cancer, heart disease, hypertension, lung disease. SOCIAL HISTORY: The patient is , does not smoke, drinks alcohol. MEDICATIONS: Per list. ALLERGIES: MIRTAZAPINE, LEVOFLOXACIN, QUINOLONES, SERTRALINE, PENICILLIN. REVIEW OF SYSTEMS: Positive for easy bruising. Remainder is negative. PHYSICAL EXAMINATION: GENERAL: The patient has multiple bruises and an open wound on her left forearm. ABDOMEN: Soft. Bowel sounds are normal. There is some tenderness in the epigastric and right upper quadrant to deep palpation. Toribio sign is negative. NEUROLOGIC: Nonfocal. IMPRESSION: The patient has abdominal pain, nausea, and vomiting with a normally functioning gallbladder containing stones. She has many risk factors for peptic ulcer disease, but I plan on scheduling her for an EGD tomorrow. In the meantime, she will go on a full liquid diet today and n.p.o. after midnight.
--- NOTE | 2019-03-11 15:15 | Infectious Disease Consult ---
Date of Consultation March 11, 2019 Assessment & Plan (1) Staphylococcus aureus bacteremia without sepsis: 68 yo female with Staph aureus (MSSA) bacteremia without identifiable focus. Have changed to cefazolin IV. Needs TTE and possibly THERESA given presence of pacemaker. Length of therapy yet to be determined. Will follow. History of Present Illness Reason for Consultation: gram positive bacteremia with no source Attending Physician: Margaret Cedillo MD History of Present Illness 68-year-old female with history of hypertension, asthma, nonischemic cardiomyopathy, who was in usual state of good health until last month when traveling in [place] became acutely ill with fever, nausea, vomiting, and diarrhea. She was admitted to the hospital and found to have acute renal failure as well as evidence of sepsis and thrombocytopenia. Was hospitalized for 6 days, but was never told of a unifying diagnosis. Apparently all cultures were negative. She recovered, but more recently developed acute onset of fever and shaking chills, and now has been found to have positive blood cultures for staph aureus. IV vancomycin has been added. Isolate has been identified as methicillin sensitive staph aureus. She denies any embolic events, joint pain, rash, has had several skin tears but no obvious localized infection. Allergies Allergy/AdvReac Type Severity Reaction Status Date / Time mirtazapine Allergy Severe STRESS Verified 03/09/19 00:40 INDUCED CARDIOMYOPATHY levofloxacin Allergy Intermediate Hives Verified 03/09/19 00:40 Quinolones Allergy Intermediate HIVES Verified 03/09/19 00:40 sertraline Allergy Intermediate MAKES HER Verified 03/09/19 00:40 "CRAZY". Penicillins Allergy Mild RASH-KEFLEX Verified 03/09/19 00:[address] AMANDA Home Medications Home Medications Medication Instructions Recorded Confirmed Type mometasone-formoterol HFA 200 2 puffs INH BID #13 gm 02/13/19 03/09/19 Rx mcg-5 mcg/actuation aerosol inhaler buspirone 15 mg tablet 15 mg PO BID tab 03/06/19 03/09/19 History escitalopram 20 mg tablet 30 mg PO QAM tab 03/06/19 03/09/19 History fexofenadine 180 mg tablet 180 mg PO DAILY PRN tab 03/06/19 03/09/19 History lorazepam 1 mg tablet 1 mg PO HS tab 03/06/19 03/09/19 History nebivolol 2.5 mg tablet 2.5 mg PO QAM tab 03/06/19 03/09/19 History acetaminophen [Tylenol Extra 1,000 mg PO Q6H PRN 03/08/19 03/09/19 History Strength] famotidine [Pepcid] 40 mg PO QAM 03/08/19 03/09/19 History ferrous sulfate [iron] 325 mg PO BID 03/08/19 03/09/19 History ipratropium-albuterol [Combivent 1 puff INHALATION Q6H PRN 03/08/19 03/09/19 History Respimat] ondansetron HCl [Zofran] 4 mg PO Q6H PRN #10 tab 03/08/19 03/09/19 Rx Patient History Family History Other Cancer Heart disease Hypertension Lung disease Social History Preferred Language: Monegasque Communication Ability: Effective Hazardous Waste Management Specialist Required: No Beliefs That Will Affect Care: None marital status: Current Living Situation: Spouse Other Information That Helps Us Care for You: No Feels Safe at Home: Yes Safety Concerns: Feels Safe At This Time Smoking Status: Never smoker Hx Alcohol Use: Yes Hx Substance Use: No Review of Systems Review of Systems: All systems reviewed & are unremarkable except as noted in HPI & below Physical Exam Constitutional: WD/WN, vitals as above comfortable; no acute distress Eyes: PERRL, conjunctivae normal, anicteric sclerae ENMT: external ear and nose normal, oropharynx normal Neck: trachea midline, no thyromegaly neck nontender Respiratory: normal respiratory effort, lungs clear to auscultation normal percussion; does not use accessory muscles Cardiovascular: Rate/Rhythm: regular rate and regular rhythm Heart Sounds: normal S1 and normal S2; no gallop, no murmur and no cardiac rub Vessels: normal peripheral pulses; no JVD Gastrointestinal (Abdomen): normal bowel sounds, soft, nontender, no hepatosplenomegaly Musculoskeletal: no cyanosis or clubbing, extremities motor strength 5/5 Spine: thoracic spine normal to inspection and lumbar spine normal to inspection; no cervical spinal tenderness Skin: no rashes, warm and dry normal turgor and + ecchymosis Neurologic: patellar DTR's 2+ bilat, sensation intact no focal motor deficits Psychiatric: A+Ox3, euthymic affect Orientation: cooperative Lymphatic: no cervical or axillary lymphadenopathy no inguinal lymphadenopathy Results & Data Vital Signs (Past 12 Hours) Vital Signs Temp Pulse Resp BP Pulse Ox 03/11/19 07:16 36.8 C 81 19 150/80 H 96 Laboratory Results Short CBC 03/11/19 Range/Units 06:51 WBC 13.15 H (4.8-10.8) K/uL Hgb 9.3 L (12.0-16.0) g/dL Hct 28.5 L (37-47) % Plt Count 138 (130-400) K/uL BMP 03/11/19 06:51 Sodium 142 Potassium 3.1 L D Chloride 111 H Carbon Dioxide 19 L BUN 14 Creatinine 0.93 Glucose 82 Calcium 8.4 L Liver Function 03/11/19 Range/Units 06:51 Total Bilirubin 0.4 (0.2-1) mg/dl AST 8 L (15-37) U/L ALT 14 (12-78) U/L Alkaline Phosphatase 78 (45-117) U/L Albumin 2.1 L (3.4-5.0) gm/dl Diagnostic Findings Microbiology 03/10/19 15:50 Blood Aerobic Blood Culture - Preliminary Gram positive cocci clusters 03/10/19 15:51 Blood Aerobic Blood Culture - Preliminary Gram positive cocci clusters 03/09/19 14:41 Stool Escherichia coli Shiga Toxins Test - Preliminary 03/09/19 14:41 Stool Stool Culture - Preliminary No Salmonella isolated to date, No Shigella isolated to date, No Campylobacter jejuni isolated to date. 03/09/19 14:41 Stool WBC Smear - Final cc: ~ ABDOMINAL ULTRASOUND, RIGHT UPPER QUADRANT HISTORY: Right upper quadrant abdominal pain. COMPARISON: PET/CT February 28, 2018. Abdominal series March 08, 2019. FINDINGS: Liver is unremarkable. Caliber of the common bile duct is at the upper limits of normal, measuring 6 mm. Multiple gallstones within the gallbladder are noted, including a stone within the gallbladder neck. The gallbladder is mildly distended. No sonographic Toribio sign was reported. No gallbladder wall thickening is noted. There is no pericholecystic fluid. The pancreatic body is normal. Head and tail are obscured. There is no right hydronephrosis. IMPRESSION: 1. Cholelithiasis and mild gallbladder distention. No gallbladder wall thickening or sonographic Toribio sign. The findings are equivocal for acute cholecystitis and a hepatobiliary scan could be obtained as indicated. 2. Top normal caliber common bile duct. Electronically signed by: Jamil Mccabe M.D. 03/09/2019 8:45 AM Dictated: 03/09/19 0843 Transcribed: 03/09/1942 PG Care Time/CCT Total # of Minutes Spent Total Time Spent with Patient: Total time spent is greater than 50% in coordination of care (as documented) at patient's floor/unit and/or counseling patient:
[2019-03-11] MEDS: CEFAZOLIN 2000MG 2,000 MG/15 ML SYR IV SCH ×2 (16:06→23:44)
--- NOTE | 2019-03-11 17:51 | Surgery Progress Note ---
Date of Service March 11, 2019 Assessment & Plan (1) Nausea vomiting and diarrhea: HIDA scan showing no evidence of cholecystitis and EF 49%. Her pain is more located in epigastrium on examination today. Her leukocytosis has improved to 13K (19K previously). She continued to have some chills and nausea but no vomiting today. GI planning on EGD tomorrow. Plan: She does have cholelithiasis however no signs of acute cholecystitis. She may need her gallbladder removed in the future but she does not have any indication for emergent cholecystectomy. Given her pain is more epigastric on exam today will await results of EGD. Will follow along continue medical management NPO after midnight for EGD. Dr. Vázquez has seen and examined pt, agrees with above. Subjective had an episode of chills and nausea but now feeling better no significant right upper abdominal pain, some midline upper abdominal pain states GI was in to se her today, planning "to take a look" Physical Exam Constitutional: WD/WN, vitals as above not ill appearing Gastrointestinal (Abdomen): Inspection/Auscultation: abdomen not distended Percussion/Palpation: + abdomen tender (epigastrium) and abdomen soft; no guarding and abdomen not rigid Skin: no rashes, warm and dry Psychiatric: A+Ox3, euthymic affect Results & Data Vital Signs (Past 12 Hours) Vital Signs Temp Pulse Resp BP Pulse Ox 03/11/19 15:32 37.4 C 85 18 156/79 H 95 03/11/19 07:16 36.8 C 81 19 150/80 H 96 Laboratory Results 03/11/19 03/11/19 03/11/19 Range/Units 06:51 06:51 06:51 WBC 13.15 H (4.8-10.8) K/uL RBC 2.98 L (4.2-5.4) M/uL Hgb 9.3 L (12.0-16.0) g/dL Hct 28.5 L (37-47) % MCV 95.6 (80-100) fL MCH 31.2 (25-34) pg MCHC 32.6 (32-36) g/dL RDW Std Deviation 53.9 H (36.4-46.3) fL RDW Coeff of Neva 15.4 H (11.5-14.5) % Plt Count 138 (130-400) K/uL MPV 10.4 (7.4-10.4) fL Immature Gran % (Auto) 0.2 % Neut % (Auto) 84.4 % Lymph % (Auto) 7.6 % Tucker % (Auto) 7.5 % Eos % (Auto) 0.2 % Baso % (Auto) 0.1 % Immature Gran # (Auto) 0.03 H (0.00-0.02) K/uL Neut # (Auto) 11.10 H (1.4-6.5) K/uL Lymph # (Auto) 1.00 L (1.2-3.4) K/uL Tucker # (Auto) 0.98 H (0.11-0.59) K/uL Eos # (Auto) 0.03 (0-0.5) K/uL Baso # (Auto) 0.01 (0-0.2) K/uL Sodium 142 (136-145) mmol/L Potassium 3.1 L D (3.5-5.1) mmol/L Chloride 111 H (98-107) mmol/L Carbon Dioxide 19 L (21-32) mmol/L Anion Gap 12.0 H (3-11) BUN 14 (7-18) mg/dl Creatinine 0.93 (0.6-1.2) mg/dl Est Cr Clr Drug Dosing 56.8 ml/min Est GFR ( Amer) 73.7 Est GFR (Non-Af Amer) 63.6 BUN/Creatinine Ratio 15.1 (10-20) Glucose 82 (70-99) mg/dl Calcium 8.4 L (8.5-10.1) mg/dl Total Bilirubin 0.4 (0.2-1) mg/dl AST 8 L (15-37) U/L ALT 14 (12-78) U/L Alkaline Phosphatase 78 (45-117) U/L Lactate Dehydrogenase 283 H (84-246) U/L Total Protein 5.8 L (6.4-8.2) gm/dl Albumin 2.1 L (3.4-5.0) gm/dl Globulin 3.7 (2.5-4.0) gm/dl Albumin/Globulin Ratio 0.6 L (0.9-2) Bld Cult Staph aureus PCR (Negative) Blood Culture MRSA PCR (Negative) 03/10/19 Range/Units 15:50 WBC (4.8-10.8) K/uL RBC (4.2-5.4) M/uL Hgb (12.0-16.0) g/dL Hct (37-47) % MCV (80-100) fL MCH (25-34) pg MCHC (32-36) g/dL RDW Std Deviation (36.4-46.3) fL RDW Coeff of Neva (11.5-14.5) % Plt Count (130-400) K/uL MPV (7.4-10.4) fL Immature Gran % (Auto) % Neut % (Auto) % Lymph % (Auto) % Tucker % (Auto) % Eos % (Auto) % Baso % (Auto) % Immature Gran # (Auto) (0.00-0.02) K/uL Neut # (Auto) (1.4-6.5) K/uL Lymph # (Auto) (1.2-3.4) K/uL Tucker # (Auto) (0.11-0.59) K/uL Eos # (Auto) (0-0.5) K/uL Baso # (Auto) (0-0.2) K/uL Sodium (136-145) mmol/L Potassium (3.5-5.1) mmol/L Chloride (98-107) mmol/L Carbon Dioxide (21-32) mmol/L Anion Gap (3-11) BUN (7-18) mg/dl Creatinine (0.6-1.2) mg/dl Est Cr Clr Drug Dosing ml/min Est GFR ( Amer) Est GFR (Non-Af Amer) BUN/Creatinine Ratio (10-20) Glucose (70-99) mg/dl Calcium (8.5-10.1) mg/dl Total Bilirubin (0.2-1) mg/dl AST (15-37) U/L ALT (12-78) U/L Alkaline Phosphatase (45-117) U/L Lactate Dehydrogenase (84-246) U/L Total Protein (6.4-8.2) gm/dl Albumin (3.4-5.0) gm/dl Globulin (2.5-4.0) gm/dl Albumin/Globulin Ratio (0.9-2) Bld Cult Staph aureus PCR Positive A (Negative) Blood Culture MRSA PCR Negative (Negative) Diagnostic Findings NUCLEAR MEDICINE HEPATOBILIARY SCAN WITH EJECTION FRACTION HISTORY: RUQ pain, gallstones COMPARISON: Abdominal ultrasound 03/09/2019. TECHNIQUE: Immediately following the intravenous administration of 5.8 mCi Tc- 99m Choletec, dynamic anterior abdominal imaging pre/post 1.6 mcg of Kinevac was performed. FINDINGS: Uniform hepatic tracer accumulation is shown. Prompt intrahepatic biliary excretion is seen. The gallbladder, common bile duct, and small bowel are all visualized by 15 minutes. This appearance represents the normal sequence of biliary excretion. The gall bladder ejection fraction following administration of Kinevac was 49% (normal >35%). IMPRESSION: 1. No evidence for cystic duct obstruction. 2. Gallbladder ejection fraction calculated to be 49 %.
[2019-03-11] MEDS: POTASSIUM CHLORIDE / WTR 10 MEQ/100 ML PLCT IV SCH ×2 (18:50→19:46)
[2019-03-11] MEDS: LORazepam 1 MG TAB PO SCH (20:37)
[2019-03-11] MEDS: NEBIVOLOL HCL 5 MG TAB PO SCH (20:38)
[2019-03-12] MEDS ORDERED: VANCOMYCIN HCL 1,000 MG in SODIUM CHLORIDE 0.9% 250 ML IV SCH (06:00)
[2019-03-12 06:43] LABS: Basophils # (auto) 0.01 K/uL (0-0.2); Basophils % (auto) 0.1 %; Eosinophils # (auto) 0.07 K/uL (0-0.5); Eosinophils % (auto) 0.6 %; Hematocrit (blood only) 29.8 % (37-47); Hemoglobin 9.8 g/dL (12.0-16.0); Immature Granulocytes # (auto) 0.08 K/uL (0.00-0.02); Immature Granulocytes % (auto) 0.7 %; Lymphocytes # (auto) 1.15 K/uL (1.2-3.4); Lymphocytes % (auto) 9.4 %; Mean Corpuscular Hemoglobin 31.2 pg (25-34); Mean Corpuscular Hgb Conc 32.9 g/dL (32-36); Mean Corpuscular Volume 94.9 fL (80-100); Mean Platelet Volume 10.7 fL (7.4-10.4); Monocytes # (auto) 1.06 K/uL (0.11-0.59); Monocytes % (auto) 8.6 %; Neutrophils % (auto) 80.6 %; Platelet Count 144 K/uL (130-400); RDW Coefficient of Variation 15.4 % (11.5-14.5); RDW Standard Deviation 53.4 fL (36.4-46.3); Red Blood Count 3.14 M/uL (4.2-5.4); White Blood Count 12.27 K/uL (4.8-10.8)
[2019-03-12 07:11] LABS: Albumin Level 2.2 gm/dl (3.4-5.0); Calcium 8.1 mg/dl (8.5-10.1); Creatinine Clr Calc Pharmacy 61.4 ml/min; Est GFR (Non-African American) 69.9; Potassium 2.8 mmol/L (3.5-5.1)
[2019-03-12 07:14] LABS: Albumin Globulin Ratio 0.6 (0.9-2); Bilirubin,Total 0.4 mg/dl (0.2-1); Globulin 3.7 gm/dl (2.5-4.0); Total Protein 5.9 gm/dl (6.4-8.2)
[2019-03-12] MEDS: ESCITALOPRAM OXALATE 10 MG TAB PO SCH (07:39)
[2019-03-12] MEDS: FAMOTIDINE 20 MG TAB PO SCH ×2 (07:39→20:35)
[2019-03-12] MEDS: MOMETASONE/FORMOTEROL INH SCH ×2 (07:39→20:36)
[2019-03-12] MEDS: BusPIRone 15 MG TAB PO SCH ×2 (07:39→20:35)
[2019-03-12] MEDS: PANTOprazole 40 MG TAB PO SCH ×2 (07:39→20:35)
[2019-03-12] MEDS: CEFAZOLIN 2000MG 2,000 MG/15 ML SYR IV SCH ×2 (07:42→16:51)
[2019-03-12] MEDS: POTASSIUM CHLORIDE / WTR 10 MEQ/100 ML PLCT IV SCH ×5 (07:50→22:54)
--- NOTE | 2019-03-12 08:59 | Anesthesiology Consultation ---
Date of Service March 12, 2019 Assessment & Plan (1) Encounter for pre-operative examination: Chart Review Chart Review: Acceptable Risk for Surgery and Patient NOT seen in Pre Admission Testing Consults Requested none ASA ASA3 Proposed Anesthesia Anesthesia Type: MAC Risk / Benefits Reviewed With: PT / POA / Parent / Guardian, Accepts Plan and I nformed Consent Obtained History Surgery Operation Date: 03/12/19 09:30 Proposed Procedures p Esophagogastroduodenoscopy Dr [place] - [place] Height/Weight Height: 5 ft 2 in Weight: 77.954 kg Allergies Allergy/AdvReac Type Severity Reaction Status Date / Time mirtazapine Allergy Severe STRESS Verified 03/09/19 00:40 INDUCED CARDIOMYOPATHY levofloxacin Allergy Intermediate Hives Verified 03/09/19 00:40 Quinolones Allergy Intermediate HIVES Verified 03/09/19 00:40 sertraline Allergy Intermediate MAKES HER Verified 03/09/19 00:40 "CRAZY". Penicillins Allergy Mild RASH-KEFLEX Verified 03/09/19 00:[address] AMANDA Medications Home Medications Medication Instructions Recorded Confirmed Last Taken mometasone-formoterol HFA 200 2 puffs INH BID #13 gm 02/13/19 03/09/19 03/08/19 mcg-5 mcg/actuation aerosol inhaler buspirone 15 mg tablet 15 mg PO BID tab 03/06/19 03/09/19 03/08/19 escitalopram 20 mg tablet 30 mg PO QAM tab 03/06/19 03/09/19 03/08/19 fexofenadine 180 mg tablet 180 mg PO DAILY PRN tab 03/06/19 03/09/19 Unknown lorazepam 1 mg tablet 1 mg PO HS tab 03/06/19 03/09/19 03/07/19 nebivolol 2.5 mg tablet 2.5 mg PO QAM tab 03/06/19 03/09/19 03/07/19 acetaminophen [Tylenol Extra 1,000 mg PO Q6H PRN 03/08/19 03/09/19 03/07/19 Strength] 1000mg famotidine [Pepcid] 40 mg PO QAM 03/08/19 03/09/19 03/07/19 ferrous sulfate [iron] 325 mg PO BID 03/08/19 03/09/19 03/07/19 ipratropium-albuterol [Combivent 1 puff INHALATION Q6H PRN 03/08/19 03/09/19 Unknown Respimat] ondansetron HCl [Zofran] 4 mg PO Q6H PRN #10 tab 03/08/19 03/09/19 Unknown Active Medications Generic Name Dose Route Start Last Admin Trade Name Freq PRN Reason Stop Dose Admin Acetaminophen 1,000 mg 03/09/19 03:36 03/11/19 16:07 Tylenol PO 04/08/19 03:35 1,000 mg Q6H PRN Administration Pain Buspirone HCl 15 mg 03/09/19 09:00 03/12/19 07:39 Buspar PO 04/08/19 08:59 15 mg BID CR Administration Calcium Carbonate 1,500 mg 03/09/19 21:38 03/09/19 21:53 Tums PO 04/08/19 21:37 1,500 mg Q4H PRN Administration Indigestion Escitalopram Oxalate 30 mg 03/09/19 09:00 03/12/19 07:39 Lexapro Tab PO 04/08/19 08:59 30 mg QAM CR Administration Famotidine 40 mg 03/10/19 09:00 03/12/19 07:39 Pepcid PO 04/09/19 08:59 40 mg BID CR Administration Ondansetron HCl 8 mg/ Dextrose 54 mls @ 200 mls/hr 03/10/19 15:31 03/11/19 17:31 IV 04/09/19 15:30 Infused Q6H PRN Infusion Nausea Sodium Chloride 1,000 mls @ 80 mls/hr 03/10/19 20:00 03/12/19 10:00 Nss 1000ml IV 04/09/19 19:59 80 mls/hr .[id number] CR Administration Cefazolin Sodium 2,000 mg in 15 mls @ 3.75 mls/min 03/11/19 16:00 03/12/19 07:42 Ancef 2000mg IV 03/25/19 15:59 3.75 mls/min Q8H CR Administration Protocol Lorazepam 1 mg 03/09/19 21:00 03/11/19 20:37 Ativan PO 04/08/19 20:59 1 mg HS CR Administration Mometasone Furoate/Formoterol Fumar 2 ea 03/10/19 21:00 03/12/19 07:39 Dulera Inhaler INH 04/09/19 20:59 2 ea BID CR Administration Nebivolol 2.5 mg 03/09/19 21:00 03/11/19 20:38 Bystolic PO 04/08/19 20:59 2.5 mg QPM CR Administration Pantoprazole Sodium 40 mg 03/10/19 15:45 03/12/19 07:39 Protonix PO 04/09/19 15:44 40 mg BID CR Administration NPO Date Last Intake of Fluids: 03/12/19 Time Last Intake of Fluids: 08:00 Last Intake of Fluids Comment: sip of water with pills Date Last Intake of Solids: 03/10/19 Time Last Intake of Solids: 17:00 Past Medical History Medical History Staphylococcus aureus bacteremia without sepsis (Acute) Nausea vomiting and diarrhea (Acute) Thrombocytopenia (Acute) Anxiety (Chronic) Asthma (Chronic) Heart disease (Chronic) HTN (hypertension) (Chronic) Exercise / Class Metabolic Activity III < 4 Walking/Shop/Light housework Negative for chest pain or shortness of breath. Past Family History Family History Other Cancer Heart disease Hypertension Lung disease Past Surgical History Surgical History S/P lobectomy of lung S/P placement of cardiac pacemaker Wrist fracture, left S/P repair Past Anesthesia History No Hx of Anesthesia Complications History of PONV No Hx of Motion Sickness and History of PONV Social History Smoking Status: Never smoker Do You Dip or Chew Tobacco: No Hx Alcohol Use: Yes alcohol intake frequency: holidays/special occasions only Hx Substance Use: No Review of Systems Patient denies active symptoms of GERD. Physical Exam Vital Signs Last Vital Signs Temp 36.8 C 03/12/19 14:35 Pulse 91 H 03/12/19 14:35 Resp 18 03/12/19 14:35 BP 174/104 H 03/12/19 14:35 Pulse Ox 97 03/12/19 14:35 Constitutional + obese ENMT Mouth: no TMJ abnormality and oral opening not small Thyromental Distance: < 3.5 Finger Breadths Mallampati Class: I Mouth / Teeth: 1. implants 2. implants Neck normal visual inspection; neck extension not limited Respiratory normal respiratory effort Auscultation: lungs clear to auscultation bilaterally Cardiovascular Rate/Rhythm: regular rate and regular rhythm Heart Sounds: no murmur Neurologic moves all extremities Psychiatric Orientation: alert and oriented x 3 Testing Laboratory Results 03/12/19 05:44 03/12/19 05:44 03/09/19 14:41 Escherichia coli Shiga Toxins Test - Final Stool Stool Culture - Final No Salmonella isolated, No Shigella isolated, No Campylobacter jejuni isolated. 03/10/19 15:51 Aerobic Blood Culture - Preliminary Blood Staphylococcus aureus Anaerobic Blood Culture - Final 03/10/19 15:50 Aerobic Blood Culture - Preliminary Blood Staphylococcus aureus Anaerobic Blood Culture - Final 03/09/19 14:41 WBC Smear - Final Stool Electrocardiogram Date: 03/08/19 Findings: + ST @ (103) Left axis deviation Right bundle branch block, When compared with ECG of 07-SEP-2012 11:05, Vent. rate has increased BY 36 BPM Nonspecific T wave abnorma lity, worse in Anterolateral leads Echocardiogram Date: 03/11/19 EF: 55-60 LV Function: normal Other Findings: + LVH (mild, concentric) Valvular Disease: + MR (mild) moderate to severe tricuspid regurg, mild pulmonary HTN, PASP 40-45 mmHg, cannot definitively rule out vegetation involving mitral valve, RV pacemaker lead
[2019-03-12] MEDS: SODIUM CHLORIDE 0.9% 1000ML 1,000 ML IV SCH ×2 (10:00→21:37)
--- NOTE | 2019-03-12 11:30 | Surgery Progress Note ---
Date of Service March 12, 2019 Assessment & Plan (1) Nausea vomiting and diarrhea: HIDA scan showing no evidence of cholecystitis and EF 49%. Her pain has resolved but she is tender in epigastrium on examination. Her leukocytosis has improved to 12K (13K previously). Going for EGD later today. Bacteremia, unclear etiology - IV abx changed to cefazolin - afebrile - THERESA showing no obvious vegetation Plan: She does have cholelithiasis however no signs of acute cholecystitis. She may need her gallbladder removed in the future but she does not have any indication for emergent cholecystectomy. Given her pain is more epigastric on exam will await results of EGD. Will follow along Continue IV Abx for bacteremia and ID recs continue medical management Dr. Vázquez has seen and examined pt, agrees with above. Subjective feeling better today no nausea or vomiting no chills no abdominal pain going for EGD later this afternoon Physical Exam Constitutional: WD/WN, vitals as above no acute distress Gastrointestinal (Abdomen): Inspection/Auscultation: abdomen normal to inspection; abdomen not distended Percussion/Palpation: + abdomen tender (epigastrium ) and abdomen soft; no guarding and abdomen not rigid Skin: no rashes, warm and dry Psychiatric: A+Ox3, euthymic affect Results & Data Vital Signs (Past 12 Hours) Vital Signs Temp Pulse Resp BP Pulse Ox 03/12/19 07:20 36.6 C 94 H 20 168/90 H 92 Laboratory Results 03/12/19 03/12/19 Range/Units 05:44 05:44 WBC 12.27 H (4.8-10.8) K/uL RBC 3.14 L (4.2-5.4) M/uL Hgb 9.8 L (12.0-16.0) g/dL Hct 29.8 L (37-47) % MCV 94.9 (80-100) fL MCH 31.2 (25-34) pg MCHC 32.9 (32-36) g/dL RDW Std Deviation 53.4 H (36.4-46.3) fL RDW Coeff of Neva 15.4 H (11.5-14.5) % Plt Count 144 (130-400) K/uL MPV 10.7 H (7.4-10.4) fL Immature Gran % (Auto) 0.7 % Neut % (Auto) 80.6 % Lymph % (Auto) 9.4 % Castro % (Auto) 8.6 % Eos % (Auto) 0.6 % Baso % (Auto) 0.1 % Immature Gran # (Auto) 0.08 H (0.00-0.02) K/uL Neut # (Auto) 9.90 H (1.4-6.5) K/uL Lymph # (Auto) 1.15 L (1.2-3.4) K/uL Castro # (Auto) 1.06 H (0.11-0.59) K/uL Eos # (Auto) 0.07 (0-0.5) K/uL Baso # (Auto) 0.01 (0-0.2) K/uL Sodium 142 (136-145) mmol/L Potassium 2.8 L (3.5-5.1) mmol/L Chloride 110 H (98-107) mmol/L Carbon Dioxide 21 (21-32) mmol/L Anion Gap 11.0 (3-11) BUN 10 (7-18) mg/dl Creatinine 0.86 (0.6-1.2) mg/dl Est Cr Clr Drug Dosing 61.4 ml/min Est GFR ( Amer) 81.0 Est GFR (Non-Af Amer) 69.9 BUN/Creatinine Ratio 12.0 (10-20) Glucose 83 (70-99) mg/dl Calcium 8.1 L (8.5-10.1) mg/dl Total Bilirubin 0.4 (0.2-1) mg/dl AST 9 L (15-37) U/L ALT 14 (12-78) U/L Alkaline Phosphatase 73 (45-117) U/L Total Protein 5.9 L (6.4-8.2) gm/dl Albumin 2.2 L (3.4-5.0) gm/dl Globulin 3.7 (2.5-4.0) gm/dl Albumin/Globulin Ratio 0.6 L (0.9-2) Diagnostic Findings Microbiology 03/09/19 14:41 Escherichia coli Shiga Toxins Test - Final Stool Stool Culture - Final No Salmonella isolated, No Shigella isolated, No Campylobacter jejuni isolated. 03/10/19 15:51 Aerobic Blood Culture - Preliminary Blood Staphylococcus aureus Anaerobic Blood Culture - Final 03/10/19 15:50 Aerobic Blood Culture - Preliminary Blood Staphylococcus aureus Anaerobic Blood Culture - Final
--- NOTE | 2019-03-12 13:48 | Infectious Disease Progress Nt ---
Date of Service March 12, 2019 Assessment & Plan (1) Staphylococcus aureus bacteremia without sepsis: Patient with staph aureus bacteremia, source unclear, clinically responding to antibiotics. Would consider obtaining THERESA in the near future which will help determine length of IV antibiotic therapy. Would also obtain follow-up blood cultures to ensure clearance of bacteremia. Will discuss. Will follow. Subjective Patient seen in follow-up for staph aureus sepsis. Feeling better today, tolerating cefazolin thus far. Currently afebrile and hemodynamically stable. Echocardiogram without obvious vegetation. No other new complaints. Review of Systems Review of Systems: All systems reviewed & are unremarkable except as noted in HPI & below Physical Exam Constitutional: WD/WN, vitals as above comfortable; no acute distress Eyes: PERRL, conjunctivae normal, anicteric sclerae ENMT: external ear and nose normal, oropharynx normal Neck: trachea midline, no thyromegaly neck nontender Respiratory: normal respiratory effort, lungs clear to auscultation normal percussion; does not use accessory muscles Cardiovascular: Rate/Rhythm: regular rate and regular rhythm Heart Sounds: normal S1 and normal S2; no gallop, no murmur and no cardiac rub Vessels: normal peripheral pulses; no JVD Gastrointestinal (Abdomen): normal bowel sounds, soft, nontender, no hepatos plenomegaly Musculoskeletal: no cyanosis or clubbing, extremities motor strength 5/5 Spine: thoracic spine normal to inspection and lumbar spine normal to inspection; no cervical spinal tenderness Skin: no rashes, warm and dry normal turgor; no lesions Neurologic: patellar DTR's 2+ bilat, sensation intact no focal motor deficits Psychiatric: A+Ox3, euthymic affect Orientation: cooperative Lymphatic: no cervical or axillary lymphadenopathy no inguinal lymphadenopathy Results & Data Vital Signs (Past 12 Hours) Vital Signs Temp Pulse Resp BP Pulse Ox 03/12/19 07:20 36.6 C 94 H 20 168/90 H 92 Laboratory Results Short CBC 03/12/19 Range/Units 05:44 WBC 12.27 H (4.8-10.8) K/uL Hgb 9.8 L (12.0-16.0) g/dL Hct 29.8 L (37-47) % Plt Count 144 (130-400) K/uL BMP 03/12/19 05:44 Sodium 142 Potassium 2.8 L Chloride 110 H Carbon Dioxide 21 BUN 10 Creatinine 0.86 Glucose 83 Calcium 8.1 L Liver Function 03/12/19 Range/Units 05:44 Total Bilirubin 0.4 (0.2-1) mg/dl AST 9 L (15-37) U/L ALT 14 (12-78) U/L Alkaline Phosphatase 73 (45-117) U/L Albumin 2.2 L (3.4-5.0) gm/dl Diagnostic Findings Microbiology 03/09/19 14:41 Stool Escherichia coli Shiga Toxins Test - Final 03/09/19 14:41 Stool Stool Culture - Final No Salmonella isolated, No Shigella isolated, No Campylobacter jejuni isolated. 03/10/19 15:51 Blood Aerobic Blood Culture - Preliminary Staphylococcus aureus 03/10/19 15:51 Blood Anaerobic Blood Culture - Final 03/10/19 15:50 Blood Aerobic Blood Culture - Preliminary Staphylococcus aureus 03/10/19 15:50 Blood Anaerobic Blood Culture - Final 03/09/19 14:41 Stool WBC Smear - Final PG Care Time/CCT Total # of Minutes Spent Total Time Spent with Patient: Total time spent is greater than 50% in coordination of care (as documented) at patient's floor/unit and/or counseling patient:
--- NOTE | 2019-03-12 15:08 | History & Physical Report ---
Date of Service March 12, 2019 History of Present Illness Chief Complaint: abd pain, nausea, vomiting Primary Care Provider: Brooks Eddy MD For EGD Allergies Allergy/AdvReac Type Severity Reaction Status Date / Time mirtazapine Allergy Severe STRESS Verified 03/09/19 00:40 INDUCED CARDIOMYOPATHY levofloxacin Allergy Intermediate Hives Verified 03/09/19 00:40 Quinolones Allergy Intermediate HIVES Verified 03/09/19 00:40 sertraline Allergy Intermediate MAKES HER Verified 03/09/19 00:40 "CRAZY". Penicillins Allergy Mild RASH-KEFLEX Verified 03/09/19 00:[address] AMANDA Home Medications Home Medications Medication Instructions Recorded Confirmed Type mometasone-formoterol HFA 200 2 puffs INH BID #13 gm 02/13/19 03/09/19 Rx mcg-5 mcg/actuation aerosol inhaler buspirone 15 mg tablet 15 mg PO BID tab 03/06/19 03/09/19 History escitalopram 20 mg tablet 30 mg PO QAM tab 03/06/19 03/09/19 History fexofenadine 180 mg tablet 180 mg PO DAILY PRN tab 03/06/19 03/09/19 History lorazepam 1 mg tablet 1 mg PO HS tab 03/06/19 03/09/19 History nebivolol 2.5 mg tablet 2.5 mg PO QAM tab 03/06/19 03/09/19 History acetaminophen [Tylenol Extra 1,000 mg PO Q6H PRN 03/08/19 03/09/19 History Strength] famotidine [Pepcid] 40 mg PO QAM 03/08/19 03/09/19 History ferrous sulfate [iron] 325 mg PO BID 03/08/19 03/09/19 History ipratropium-albuterol [Combivent 1 puff INHALATION Q6H PRN 03/08/19 03/09/19 History Respimat] ondansetron HCl [Zofran] 4 mg PO Q6H PRN #10 tab 03/08/19 03/09/19 Rx Past Med/Surg History Medical History Staphylococcus aureus bacteremia without sepsis (Acute) Nausea vomiting and diarrhea (Acute) Thrombocytopenia (Acute) Anxiety (Chronic) Asthma (Chronic) Heart disease (Chronic) HTN (hypertension) (Chronic) Surgical History S/P lobectomy of lung S/P placement of cardiac pacemaker Wrist fracture, left S/P repair Family History Other Cancer Heart disease Hypertension Lung disease Social History Preferred Language: Nigerien Communication Ability: Effective 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 Beliefs That Will Affect Care: None marital status: Current Living Situation: Spouse Other Information That Helps Us Care for You: No Feels Safe at Home: Yes Safety Concerns: Feels Safe At This Time Smoking Status: Never smoker Do You Dip or Chew Tobacco: No ; Hx Alcohol Use: Yes Hx Substance Use: No Physical Exam Constitutional: + obese Respiratory: normal respiratory effort Cardiovascular: Rate/Rhythm: regular rate and regular rhythm Gastrointestinal (Abdomen): Percussion/Palpation: abdomen soft Skin: + ecchymosis Results & Data Vital Signs (Past 12 Hours) Vital Signs Temp Pulse Pulse Resp BP Pulse Ox 03/12/19 14:35 36.8 C 91 H 18 174/104 H 97 03/12/19 07:20 36.6 C 94 H 20 168/90 H 92 Code Status & VTE Plan VTE Prophylaxis Plan VTE Prophylaxis will be ordered: Yes
[2019-03-12] MEDS ORDERED: LIDOCAINE HCL 2% 2 ML VIAL/AMP(20MG/ML) INFIL ONE (15:11)
[2019-03-12] MEDS ORDERED: GLYCOPYRROLATE 0.2 MG/ML VIAL ONE (15:11)
[2019-03-12] MEDS ORDERED: PROPOFOL IV EMULSION 10 MG/ML 20 ML VIAL IV ONE (15:12)
[2019-03-12] MEDS ORDERED: SODIUM CHLORIDE 0.9% 1000ML 1,000 ML IV SCH (15:15)
--- NOTE | 2019-03-12 15:24 | GI REPORT ---
Patient Name: Eden Sandoval Procedure Date: 03/12/2019 2:59 PM Date of : 1950 Admit Type: Inpatient Age: 68 Gender: Female Attending MD: Modesto Hermosillo MD Procedure: Upper GI endoscopy Providers: Modesto Hermosillo MD Referring MD: Fabrizio Arreola Indications: Epigastric abdominal pain, Abdominal pain in the right upper quadrant, Nausea with vomiting Medicines: Propofol total dose 100 mg IV, Lidocaine 80 mg IV Complications: No immediate complications. Estimated Blood Loss: Estimated blood loss: none. Procedure: Pre-Anesthesia Assessment: - Prior to the procedure, a History and Physical was performed, and patient medications, allergies and sensitivities were reviewed. The patient's tolerance of previous anesthesia was reviewed. - The risks and benefits of the procedure and the sedation options and risks were discussed with the patient. All questions were answered and informed consent was obtained. After obtaining informed consent, the endoscope was passed under direct vision. Throughout the procedure, the patient's blood pressure, pulse, and oxygen saturations were monitored continuously. The Scope was introduced through the mouth, and advanced to the second part of duodenum. The upper GI endoscopy was accomplished without difficulty. The patient tolerated the procedure well. Findings: The Z-line was regular and was found 31 cm from the incisors. A medium-sized hiatal hernia was present. The entire examined stomach was normal. The examined duodenum was normal. Impression: - Z-line regular, 31 cm from the incisors. - Medium-sized hiatal hernia. - Normal stomach. - Normal examined duodenum. - No specimens collected. Recommendation: - Return patient to hospital conn for ongoing care. Modesto Hermosillo M.D. Modesto Hermosillo MD 03/12/2019 3:24:18 PM This report has been signed electronically. Note Initiated On: 03/12/2019 2:59 PM Number of Addenda: 0 I attest to the content of the Intraoperative Record and orders documented therein, exceptions below {[id number]}
--- NOTE | 2019-03-12 15:34 | Progress Note ---
DATE: 03/12/2019 The patient underwent an EGD today for evaluation of her abdominal pain and nausea and vomiting other than a medium sized hiatal hernia. There were no other endoscopic abnormalities found. She does have gallstones, but has a normal biliary scan and no ultrasound findings to suggest acute cholecystitis either. She is to undergo a transesophageal echo probably tomorrow. IMPRESSION: The patient has abdominal pain, nausea, and vomiting with incidental gallstones and a negative EGD other than a medium sized hiatal hernia. At this point, I would continue to pursue her cardiac evaluation for potential source for her symptoms.
--- NOTE | 2019-03-12 15:57 | Family Medicine Progress Note ---
Date of Service March 12, 2019 Assessment & Plan (1) Nausea & vomitin yo F here with intractable nausea and vomiting a/w loose stools. RUQ and epigastric Abdominal pain w/ nausea and vomiting Abdominal ultrasound revealed cholelithiasis with multiple gallstones in the gallbladder and one in the biliary trunk. Did not show any signs of pericholecystic fluid or acute cholecystitis. -HIDA scan showed no evidence of cystic duct obstruction and normal EF -GI consulted - Being scheduled for EGD -symptoms overall better. Bacteremia w/ 2 positive blood cultures (gram positive cocci) - WBC 13.15 improving, afebrile overnight, HR: 95 - MRSA pcr negative, waiting on sensitivities - ECHO TTE (03/11) could not definitively rule out vegetation - ID consulted - abx.: Cefazolin sodium 2,000 mg in 15 mls at 3.75 mls/min IV Q8H - consult cardiology for THERESA to further evaluate for endocarditis Hypokalemia likely 2/2 decreased intake - K 3.1 today - K rider X2 ordered - will recheck K Loose stool - C. diff neg, awaiting on other stool labs to finalize HTN - continue home meds Asthma - continue home inhalers Anxiety - continue escitalopram, ativan and buspirone FEN/GI: liquid diet tonight, NPO after midnight for EGD tomorrow DVT ppx: scds CODE STATUS: FULL as d/w pt and at bedside DISPO: med/surg awaiting stool cx's. (2) Bacteremia: (3) Loose stools: (4) HTN (hypertension): Supervising Physician Co-Signing Physician Notes Resident Physician Supervision Note: I independently interviewed and examined the patient and verified the beaver history and physical, reviewed labs and image studies, discussed the case with the resident Dr. Sam and agree with the findings and care plan. Subjective Ms. Sandoval was feeling well today, slept well and was able to swallow pills without nausea. She underwent a EGD today and after this she was changed from NPO to thickened liquids. Discussed with patient that a THERESA was scheduled for tomorrow to evaluate her for endocarditis. Review of Systems Constitutional: no fever and no chills Respiratory: + cough denies shortness of breath Cardiovascular: no chest pain and no palpitations Gastrointestinal: no nausea and no vomiting Genitourinary: no dysuria, no urinary frequency and no urinary urgency Physical Exam Constitutional: well developed and well nourished; no acute distress Respiratory: normal respiratory effort, lungs clear to auscultation Cardiovascular: RRR with well perfused skin, capillary refill <2 seconds Gastrointestinal (Abdomen): abdomen tender to palpation in the epigastric and RUQ, no guarding, no rebound, not rigid Skin: no rashes, warm and dry Results & Data Vital Signs (Past 12 Hours) Vital Signs Temp Pulse Pulse Resp BP Pulse Ox 03/12/19 15:50 96 H 16 150/86 H 95 03/12/19 15:35 96 H 16 146/82 H 96 03/12/19 15:20 97 H 16 130/79 97 03/12/19 14:35 36.8 C 91 H 18 174/104 H 97 03/12/19 07:20 36.6 C 94 H 20 168/90 H 92 PG Care Time/CCT Total # of Minutes Spent Total Time Spent with Patient: Total time spent is greater than 50% in coordination of care (as documented) at patient's floor/unit and/or counseling patient: Resident Activity Tracking Resident Involvement: Resident Care Provided Care Provided: Adult Hospital Medicine
--- NOTE | 2019-03-12 16:20 | Anesthesiology Progress Note ---
Date of Service March 12, 2019 Anesthesia Post Procedure Vital Signs Vital Signs: Temp Pulse Pulse Resp BP Pulse Ox 03/12/19 16:11 36.7 C 95 H 18 183/85 H 96 03/12/19 15:50 96 H 16 150/86 H 95 03/12/19 15:35 96 H 16 146/82 H 96 03/12/19 15:20 97 H 16 130/79 97 03/12/19 14:35 36.8 C 91 H 18 174/104 H 97 03/12/19 07:20 36.6 C 94 H 20 168/90 H 92 03/11/19 23:09 36.8 C 87 18 139/77 92 Transfer of Care Handoff Completed per policy Notes Mental Status: alert / awake / arousable Patient Amnestic to Procedure: Yes Nausea / Vomiting: adequately controlled Pain: adequately controlled Airway Patency, RR, SpO2: stable & adequate BP & HR: stable & adequate Hydration State: stable & adequate Anesthetic Complications: no major complications apparent
[2019-03-12 17:18] LABS: BUN Creatinine Ratio 11.8 (10-20); Calcium 8.6 mg/dl (8.5-10.1); Creatinine Clr Calc Pharmacy 64.4 ml/min; Est GFR (African American) 85.8
[2019-03-12 17:53] LABS: Potassium 3.1 mmol/L (3.5-5.1)
[2019-03-12 17:54] LABS: Magnesium 1.8 mg/dl (1.8-2.4)
[2019-03-12] MEDS: LORazepam 1 MG TAB PO SCH (20:35)
[2019-03-12] MEDS: NEBIVOLOL HCL 5 MG TAB PO SCH (20:35)
[2019-03-13] MEDS: CEFAZOLIN 2000MG 2,000 MG/15 ML SYR IV SCH ×4 (00:16→23:47)
[2019-03-13 06:57] LABS: Basophils # (auto) 0.02 K/uL (0-0.2); Basophils % (auto) 0.2 %; Eosinophils # (auto) 0.06 K/uL (0-0.5); Eosinophils % (auto) 0.5 %; Hemoglobin 9.4 g/dL (12.0-16.0); Immature Granulocytes # (auto) 0.27 K/uL (0.00-0.02); Immature Granulocytes % (auto) 2.2 %; Lymphocytes # (auto) 1.26 K/uL (1.2-3.4); Lymphocytes % (auto) 10.2 %; Mean Corpuscular Hemoglobin 31.5 pg (25-34); Mean Corpuscular Hgb Conc 33.6 g/dL (32-36); Mean Platelet Volume 9.8 fL (7.4-10.4); Monocytes # (auto) 1.12 K/uL (0.11-0.59); Monocytes % (auto) 9.1 %; Neutrophils # (auto) 9.58 K/uL (1.4-6.5); Neutrophils % (auto) 77.8 %; Platelet Count 155 K/uL (130-400); RDW Coefficient of Variation 15.3 % (11.5-14.5); RDW Standard Deviation 52.3 fL (36.4-46.3); Red Blood Count 2.98 M/uL (4.2-5.4); White Blood Count 12.31 K/uL (4.8-10.8)
[2019-03-13] MEDS ORDERED: fentaNYL citrate 100 MCG/2 ML VIAL ONE ×2 (07:25→07:50)
[2019-03-13] MEDS ORDERED: MIDAZOLAM HCL 1 MG/ML 2ML VIAL ONE ×2 (07:25→07:50)
[2019-03-13 07:37] LABS: BUN Creatinine Ratio 8.4 (10-20); Calcium 8.1 mg/dl (8.5-10.1); Est GFR (African American) 88.4; Est GFR (Non-African American) 76.3; Potassium 2.8 mmol/L (3.5-5.1)
--- NOTE | 2019-03-13 08:37 | Post Anesthesia Assessment ---
Date of Service March 13, 2019 Post Sedation Assessment Vital Signs Temp Pulse Pulse Pulse Pulse Resp BP 03/13/19 08:29 105 H 16 197/96 H 03/13/19 08:24 104 H 16 193/92 H 03/13/19 08:19 100 H 16 175/85 H 03/13/19 08:12 172/89 H 03/13/19 07:52 37.2 C 88 18 202/96 H 03/13/19 07:45 80 14 03/12/19 23:17 37.1 C 89 20 149/79 H 03/12/19 16:11 36.7 C 95 H 18 03/12/19 15:50 96 H 16 03/12/19 15:35 96 H 16 03/12/19 15:20 97 H 16 03/12/19 14:35 36.8 C 91 H 18 BP Pulse Ox 03/13/19 08:29 96 03/13/19 08:24 96 03/13/19 08:19 96 03/13/19 08:12 03/13/19 07:52 95 03/13/19 07:45 160/70 H 03/12/19 23:17 92 03/12/19 16:11 183/85 H 96 03/12/19 15:50 150/86 H 95 03/12/19 15:35 146/82 H 96 03/12/19 15:20 130/79 97 03/12/19 14:35 174/104 H 97 Recovery Score Activity: Moves 4 extremities Respiration: Deep Breath/Cough Circulation: +/-20-49% PreAnes Value Consciousness: Fully Awake Oxygen Saturation: > 92% On Room Air Post Anesthesia Score: 9 Post Sedation Plan On clinical assessment, the patient appears to have tolerated the sedation without complications. Patient is recovering as anticipated. Patient will continue to be monitored by nursing and may be discharged when sedation discharge criteria are met per below protocol. Upon Completions of procedure and additional 15 minutes continue every 5 minute vital signs and the P.A.R. score; then discharge to a Phase I or Fast Track to Phase II per the following guidelines: * Discharge Patient to appropriate Phase II area if PAR is 8 or greater or return to pre- procedure baseline. The post - procedure orders will be as directed. * If PAR score is less than 8 or not return to pre-procedure baseline then patient will follow Phase I monitoring till PAR is reached for Phase II. The Phase I may be done in procedure room or may call to secure a Phase I area. * If naloxone or flumazenil are used for reversal, hold in Phase I for continued monitoring from when last reversal dose was given for a minimum of 60 minutes or longer pending the nurse and/or physician discretion of patient condition before discharge to Phase II. Please call the Sedation Physician to re-evaluate and complete post-note for discharge to Phase II area. Do NOT discharge from procedure sedation or Phase 1 until post- sedation evaluation note is complete by procedure /sedation MD Sedation Discharge Instructions to be given to the patient at discharge to home.
--- NOTE | 2019-03-13 08:38 | Pre Anesthesia Assessment ---
Date of Service March 13, 2019 Pre Sedation Assessment Vital Signs Temp Pulse Pulse Pulse Pulse Resp BP 03/13/19 08:29 105 H 16 197/96 H 03/13/19 08:24 104 H 16 193/92 H 03/13/19 08:19 100 H 16 175/85 H 03/13/19 08:12 172/89 H 03/13/19 07:52 37.2 C 88 18 202/96 H 03/13/19 07:45 80 14 03/12/19 23:17 37.1 C 89 20 149/79 H 03/12/19 16:11 36.7 C 95 H 18 03/12/19 15:50 96 H 16 03/12/19 15:35 96 H 16 03/12/19 15:20 97 H 16 03/12/19 14:35 36.8 C 91 H 18 BP Pulse Ox 03/13/19 08:29 96 03/13/19 08:24 96 03/13/19 08:19 96 03/13/19 08:12 03/13/19 07:52 95 03/13/19 07:45 160/70 H 03/12/19 23:17 92 03/12/19 16:11 183/85 H 96 03/12/19 15:50 150/86 H 95 03/12/19 15:35 146/82 H 96 03/12/19 15:20 130/79 97 03/12/19 14:35 174/104 H 97 Cardiovascular + regular rate Respiratory + respiratory effort normal Pre-Sedation Airway Assessment Smoking Status: Never smoker Hx Sleep Apnea: No Hx Difficult Intubation: No Short, Thick Neck: No Thyromental Distance: > or= 3.5 Finger Breadths Oral Cavity: + WNL Mallampati Class: II ASA: ASA3 NPO Status Date of Last Intake of Fluids: 03/13/19 Time of Last Intake of Fluids: 19:00 Date of Last Intake of Solid Food: 03/13/19 Time of Last Intake of Solid Foods: 19:00 Procedure Planning Contraindications for Sedation: none Current Medications Reviewed: Yes Notes The planned sedation has been discussed with the patient. Informed Consent was obtained. I have identified the patient, determined the appropriateness of sedation and have assessed the patient immediately prior to the procedure. All medicine(s) and interventions are by my order.
--- NOTE | 2019-03-13 08:39 | Post Operative Brief Note ---
Cardiology Brief Post Op Date of Surgery March 13, 2019 Pre & Post Diagnosis Operation Date: 03/12/19 09:30 Pre-Op Diagnosis: INTRACTABLE NAUSEA Post-Op Diagnosis: medium hiatal hernia Operation Date: 03/13/19 08:00 <No data on this case meets the specified criteria> Procedure THERESA Dry Clipper Tender Luis Butler MD Case Technician none Estimated Blood Loss 0 Findings See Below Tricuspid regurgitation. Fibrinous material on pacing leads but cannot confirm this is a vegetation or if it represents endocarditis. Complications none Disposition Accompanied Patient To Recovery: No Disposition: PCU Overlapping Procedure I was immediately available: during the entire case.
--- NOTE | 2019-03-13 08:51 | Post Anesthesia Assessment ---
Date of Service March 13, 2019 Post Sedation Assessment Vital Signs Temp Pulse Pulse Pulse Pulse Resp BP 03/13/19 08:45 87 16 170/77 H 03/13/19 08:35 106 H 92 H 16 172/87 H 03/13/19 08:29 105 H 16 197/96 H 03/13/19 08:24 104 H 16 193/92 H 03/13/19 08:19 100 H 16 175/85 H 03/13/19 08:12 172/89 H 03/13/19 07:52 37.2 C 88 18 202/96 H 03/13/19 07:45 80 14 03/12/19 23:17 37.1 C 89 20 149/79 H 03/12/19 16:11 36.7 C 95 H 18 03/12/19 15:50 96 H 16 03/12/19 15:35 96 H 16 03/12/19 15:20 97 H 16 03/12/19 14:35 36.8 C 91 H 18 BP Pulse Ox 03/13/19 08:45 96 03/13/19 08:35 96 03/13/19 08:29 96 03/13/19 08:24 96 03/13/19 08:19 96 03/13/19 08:12 03/13/19 07:52 95 03/13/19 07:45 160/70 H 03/12/19 23:17 92 03/12/19 16:11 183/85 H 96 03/12/19 15:50 150/86 H 95 03/12/19 15:35 146/82 H 96 03/12/19 15:20 130/79 97 03/12/19 14:35 174/104 H 97 Recovery Score Activity: Moves 4 extremities Respiration: Deep Breath/Cough Circulation: +/-20% PreAnes Value Consciousness: Fully Awake Oxygen Saturation: > 92% On Room Air Post Anesthesia Score: 10 Post Sedation Plan On clinical assessment, the patient appears to have tolerated the sedation without complications. Patient is recovering as anticipated. Patient will continue to be monitored by nursing and may be discharged when sedation discharge criteria are met per below protocol. Upon Completions of procedure and additional 15 minutes continue every 5 minute vital signs and the P.A.R. score; then discharge to a Phase I or Fast Track to Phase II per the following guidelines: * Discharge Patient to appropriate Phase II area if PAR is 8 or greater or return to pre- procedure baseline. The post - procedure orders will be as directed. * If PAR score is less than 8 or not return to pre-procedure baseline then patient will follow Phase I monitoring till PAR is reached for Phase II. The Phase I may be done in procedure room or may call to secure a Phase I area. * If naloxone or flumazenil are used for reversal, hold in Phase I for continued monitoring from when last reversal dose was given for a minimum of 60 minutes or longer pending the nurse and/or physician discretion of patient condition before discharge to Phase II. Please call the Sedation Physician to re-evaluate and complete post-note for discharge to Phase II area. Do NOT discharge from procedure sedation or Phase 1 until post- sedation evaluation note is complete by procedure /sedation MD Sedation Discharge Instructions to be given to the patient at discharge to home.
--- NOTE | 2019-03-13 08:57 | Anesthesiology Progress Note ---
Date of Service March 13, 2019 Anesthesia Post Procedure Vital Signs Vital Signs: Temp Pulse Pulse Pulse Pulse Resp BP 03/13/19 08:53 85 16 173/59 H 03/13/19 08:45 87 16 170/77 H 03/13/19 08:35 106 H 92 H 16 172/87 H 03/13/19 08:29 105 H 16 197/96 H 03/13/19 08:24 104 H 16 193/92 H 03/13/19 08:19 100 H 16 175/85 H 03/13/19 08:12 172/89 H 03/13/19 07:52 37.2 C 88 18 202/96 H 03/13/19 07:45 80 14 03/12/19 23:17 37.1 C 89 20 149/79 H 03/12/19 16:11 36.7 C 95 H 18 03/12/19 15:50 96 H 16 03/12/19 15:35 96 H 16 03/12/19 15:20 97 H 16 03/12/19 14:35 36.8 C 91 H 18 BP Pulse Ox 03/13/19 08:53 97 03/13/19 08:45 96 03/13/19 08:35 96 03/13/19 08:29 96 03/13/19 08:24 96 03/13/19 08:19 96 03/13/19 08:12 03/13/19 07:52 95 03/13/19 07:45 160/70 H 03/12/19 23:17 92 03/12/19 16:11 183/85 H 96 03/12/19 15:50 150/86 H 95 03/12/19 15:35 146/82 H 96 03/12/19 15:20 130/79 97 03/12/19 14:35 174/104 H 97 Notes Mental Status: alert / awake / arousable and participated in evaluation Patient Amnestic to Procedure: Yes Nausea / Vomiting: adequately controlled Pain: adequately controlled Airway Patency, RR, SpO2: stable & adequate BP & HR: stable & adequate Hydration State: stable & adequate Anesthetic Complications: no major complications apparent and Pt Satisfied with anesthetic care
[2019-03-13] MEDS ORDERED: BENZOCAIN/TETRACA/BUTAM SPRAY 200 APPLN/20 GM SPRY EXT ONE (09:05)
[2019-03-13] MEDS: POTASSIUM CHLORIDE / WTR 10 MEQ/100 ML PLCT IV SCH ×4 (09:21→12:39)
[2019-03-13] MEDS: PANTOprazole 40 MG TAB PO SCH ×2 (09:24→21:18)
[2019-03-13] MEDS: FAMOTIDINE 20 MG TAB PO SCH ×2 (09:24→21:17)
[2019-03-13] MEDS: BusPIRone 15 MG TAB PO SCH ×2 (09:24→21:18)
[2019-03-13] MEDS: MOMETASONE/FORMOTEROL INH SCH ×2 (09:24→21:19)
[2019-03-13] MEDS: ESCITALOPRAM OXALATE 10 MG TAB PO SCH (09:24)
[2019-03-13] MEDS: SODIUM CHLORIDE 0.9% 1000ML 1,000 ML IV SCH ×2 (10:30→23:48)
--- NOTE | 2019-03-13 11:37 | Family Medicine Progress Note ---
Date of Service March 13, 2019 Assessment & Plan (1) Nausea & vomiting: (1) Nausea & vomitin yo F here with intractable nausea and vomiting RUQ and epigastric pain a/w loose stools. RUQ and epigastric abdominal pain w/ nausea and vomiting - Abdominal pain and vomiting has resolved, appetite and nausea are slowly improving - Abdominal ultrasound revealed: no acute pathology of the gallbladder but there were stones noted - surgery following, appreciate recs., patient will see them in the outpatient setting - HIDA scan showed no evidence of cystic duct obstruction and normal EF - GI following appreciate recommendations, EGD showed no acute pathology of the stomach or esophagus that could explain patients pathology - Ondansetron 8 mg in 54 mL @200 mL/hr IV q6 PRN for nausea Bacteremia w/ 2 positive blood cultures (gram positive cocci) - WBC 12.31, afebrile overnight, HR: 89 - ID on board, abx.: Cefazolin sodium 2,000 mg in 15 mls at 3.75 mls/min IV Q8H, - MRSA pcr negative, sensitivities showed huff sensitive - ECHO TTE (03/11) could not definitively rule out vegetation - THERESA to further evaluate for endocarditis (03/13) results show: No definitive vegetation but there is fibrinous material on the pacing leads it is unclear from the echo whether this represents a source of infection - ordered second blood draws after 48 hrs (03/12) currently pending Hypokalemia likely 2/2 decreased intake - K 2.8 this AM - K rider X4 ordered - continue to follow K QAM Loose stool - C. diff neg - no salmonella, shigella, campy FINAL HTN - continue home Nebivolol 2.5 mg PO QPM Asthma - continue home Dulera GERD - continue Famotidine 40 mg PO BID - continue Pantoprazole 40 mg BID Anxiety - continue home Buspirone 15 mg BID, Lexapro 30 mg PO QAM, Lorazepam 1 mg PO HS FEN/GI: checking AM BMP, diet: NPO for THERESA after midnight DVT ppx: scds CODE STATUS: FULL DISPO: med/surg. (2) Bacteremia: (3) Loose stools: (4) HTN (hypertension): Supervising Physician Co-Signing Physician Notes Resident Physician Supervision Note: I independently interviewed and examined the patient and verified the beaver history and physical, reviewed labs and image studies, discussed the case with the resident Dr. Sam and agree with the findings and care plan. Subjective Ms. Sandoval had returned from the THERESA this morning when we spoke. We reviewed what had been done on the prior admission and I informed them I would fill out the form they had from insurance for reimbursment of a flight Review of Systems Constitutional: no fever and no chills Respiratory: no cough no shortness of breath Cardiovascular: no chest pain and no palpitations Gastrointestinal: + nausea; no vomiting Genitourinary: no dysuria, no urinary frequency and no urinary urgency Physical Exam Constitutional: well developed and well nourished; not ill appearing Respiratory: normal respiratory effort, lungs clear to auscultation Cardiovascular: RRR, no murmur, no edema Extremities: no calf tenderness and no edema Skin: no rashes, warm and dry Psychiatric: Orientation: alert Results & Data Vital Signs (Past 12 Hours) Vital Signs Temp Pulse Pulse Pulse Resp BP BP 03/13/19 11:07 36.8 C 74 18 168/72 H 03/13/19 10:30 36.7 C 74 18 161/78 H 03/13/19 10:15 36.9 C 86 18 178/81 H 03/13/19 10:00 36.6 C 80 18 166/94 H 03/13/19 09:45 36.7 C 76 16 163/82 H 03/13/19 09:27 36.7 C 95 H 20 181/79 H 03/13/19 08:53 85 16 173/59 H 03/13/19 08:45 87 16 170/77 H 03/13/19 08:35 106 H 92 H 16 172/87 H 03/13/19 08:29 105 H 16 197/96 H 03/13/19 08:24 104 H 16 193/92 H 03/13/19 08:19 100 H 16 175/85 H 03/13/19 08:12 172/89 H 03/13/19 07:52 37.2 C 88 18 202/96 H 03/13/19 07:45 80 14 160/70 H Pulse Ox 03/13/19 11:07 95 03/13/19 10:30 95 03/13/19 10:15 95 03/13/19 10:00 94 03/13/19 09:45 94 03/13/19 09:27 90 09/25/19 08:53 97 03/13/19 08:45 96 03/13/19 08:35 96 03/13/19 08:29 96 03/13/19 08:24 96 03/13/19 08:19 96 03/13/19 08:12 03/13/19 07:52 95 03/13/19 07:45 PG Care Time/CCT Total # of Minutes Spent Total Time Spent with Patient: Total time spent is greater than 50% in coordination of care (as documented) at patient's floor/unit and/or counseling patient: Resident Activity Tracking Resident Involvement: Resident Care Provided Care Provided: Adult Hospital Medicine
--- NOTE | 2019-03-13 14:22 | Surgery Progress Note ---
Date of Service March 13, 2019 Assessment & Plan (1) Nausea vomiting and diarrhea: HIDA scan showing no evidence of cholecystitis and EF 49%. Abdominal pain has resolved, no n/v EGD showing moderate hiatal hernia however no PUD Bacteremia, unclear etiology - IV abx changed to cefazolin - afebrile - THERESA showing no obvious vegetation but some fibrinous tissue on pacemaker leads Plan: She does have cholelithiasis however no signs of acute cholecystitis. HIDA normal. No indication for cholecystectomy at this time. Informed patient of biliary colic symptoms and to avoid fatty/greasy meals. Continue IV Abx for bacteremia continue medical management Patient can follow-up in surgical office a few weeks after discharge Subjective feeling better today no abdominal pain, no nausea or vomiting no fevers or chills had THERESA today Physical Exam Constitutional: WD/WN, vitals as above not ill appearing Gastrointestinal (Abdomen): Inspection/Auscultation: abdomen not distended Percussion/Palpation: abdomen soft; abdomen nontender, no guarding and abdomen not rigid Skin: no rashes, warm and dry Psychiatric: A+Ox3, euthymic affect Results & Data Vital Signs (Past 12 Hours) Vital Signs Temp Pulse Pulse Pulse Resp BP BP 03/13/19 11:07 36.8 C 74 18 168/72 H 03/13/19 10:30 36.7 C 74 18 161/78 H 03/13/19 10:15 36.9 C 86 18 178/81 H 03/13/19 10:00 36.6 C 80 18 166/94 H 03/13/19 09:45 36.7 C 76 16 163/82 H 03/13/19 09:27 36.7 C 95 H 20 181/79 H 03/13/19 08:53 85 16 173/59 H 03/13/19 08:45 87 16 170/77 H 03/13/19 08:35 106 H 92 H 16 172/87 H 03/13/19 08:29 105 H 16 197/96 H 03/13/19 08:24 104 H 16 193/92 H 03/13/19 08:19 100 H 16 175/85 H 03/13/19 08:12 172/89 H 03/13/19 07:52 37.2 C 88 18 202/96 H 03/13/19 07:45 80 14 160/70 H Pulse Ox 09/25/19 11:07 95 03/13/19 10:30 95 03/13/19 10:15 95 03/13/19 10:00 94 03/13/19 09:45 94 03/13/19 09:27 90 03/13/19 08:53 97 03/13/19 08:45 96 03/13/19 08:35 96 03/13/19 08:29 96 03/13/19 08:24 96 03/13/19 08:19 96 03/13/19 08:12 03/13/19 07:52 95 03/13/19 07:45 Laboratory Results 03/13/19 03/13/19 03/12/19 Range/Units 06:35 06:35 17:35 WBC 12.31 H (4.8-10.8) K/uL RBC 2.98 L (4.2-5.4) M/uL Hgb 9.4 L (12.0-16.0) g/dL Hct 28.0 L (37-47) % MCV 94.0 (80-100) fL MCH 31.5 (25-34) pg MCHC 33.6 (32-36) g/dL RDW Std Deviation 52.3 H (36.4-46.3) fL RDW Coeff of Neva 15.3 H (11.5-14.5) % Plt Count 155 (130-400) K/uL MPV 9.8 (7.4-10.4) fL Immature Gran % (Auto) 2.2 % Neut % (Auto) 77.8 % Lymph % (Auto) 10.2 % Concord[place] % (Auto) 9.1 % Eos % (Auto) 0.5 % Baso % (Auto) 0.2 % Immature Gran # (Auto) 0.27 H (0.00-0.02) K/uL Neut # (Auto) 9.58 H (1.4-6.5) K/uL Lymph # (Auto) 1.26 (1.2-3.4) K/uL Concordia # (Auto) 1.12 H (0.11-0.59) K/uL Eos # (Auto) 0.06 (0-0.5) K/uL Baso # (Auto) 0.02 (0-0.2) K/uL Sodium 141 (136-145) mmol/L Potassium 2.8 L 3.1 L (3.5-5.1) mmol/L Chloride 109 H (98-107) mmol/L Carbon Dioxide 22 (21-32) mmol/L Anion Gap 10.0 (3-11) BUN 7 (7-18) mg/dl Creatinine 0.80 (0.6-1.2) mg/dl Est Cr Clr Drug Dosing 66.0 ml/min Est GFR ( Amer) 88.4 Est GFR (Non-Af Amer) 76.3 BUN/Creatinine Ratio 8.4 L (10-20) Glucose 87 (70-99) mg/dl Calcium 8.1 L (8.5-10.1) mg/dl Magnesium 1.8 (1.8-2.4) mg/dl Stool H. pylori Ag (NOT DETECTED) Giardia Antigen (NOT DETECTED) 03/12/19 03/09/19 03/09/19 Range/Units 16:43 14:41 14:41 WBC (4.8-10.8) K/uL RBC (4.2-5.4) M/uL Hgb (12.0-16.0) g/dL Hct (37-47) % MCV (80-100) fL MCH (25-34) pg MCHC (32-36) g/dL RDW Std Deviation (36.4-46.3) fL RDW Coeff of Neva (11.5-14.5) % Plt Count (130-400) K/uL MPV (7.4-10.4) fL Immature Gran % (Auto) % Neut % (Auto) % Lymph % (Auto) % Concordia % (Auto) % Eos % (Auto) % Baso % (Auto) % Immature Gran # (Auto) (0.00-0.02) K/uL Neut # (Auto) (1.4-6.5) K/uL Lymph # (Auto) (1.2-3.4) K/uL Concordia # (Auto) (0.11-0.59) K/uL Eos # (Auto) (0-0.5) K/uL Baso # (Auto) (0-0.2) K/uL Sodium 141 (136-145) mmol/L Potassium (3.5-5.1) mmol/L Chloride 110 H (98-107) mmol/L Carbon Dioxide 18 L (21-32) mmol/L Anion Gap 13.0 H (3-11) BUN 10 (7-18) mg/dl Creatinine 0.82 (0.6-1.2) mg/dl Est Cr Clr Drug Dosing 64.4 ml/min Est GFR ( Amer) 85.8 Est GFR (Non-Af Amer) 74.0 BUN/Creatinine Ratio 11.8 (10-20) Glucose 77 (70-99) mg/dl Calcium 8.6 (8.5-10.1) mg/dl Magnesium (1.8-2.4) mg/dl Stool H. pylori Ag NOT DETECTED (NOT DETECTED) Giardia Antigen NOT DETECTED (NOT DETECTED)
[2019-03-13] MEDS: LORazepam 1 MG TAB PO SCH (21:17)
[2019-03-13] MEDS: NEBIVOLOL HCL 5 MG TAB PO SCH (21:18)
--- NOTE | 2019-03-13 21:28 | Infectious Disease Progress Nt ---
Date of Service March 13, 2019 Assessment & Plan (1) Staphylococcus aureus bacteremia without sepsis: Patient with staph aureus bacteremia, cannot rule out vegetation on pacemaker wire. Given THERESA findings, think it is most prudent to give 6 weeks of IV antibiotics. Case discussed with hospitalist service. Subjective Patient seen in follow-up for staph bacteremia. Had THERESA, some abnormality with fibular stand seen on pacemaker lead, cannot rule out vegetation. Remains afebrile, follow-up blood cultures no growth to date. Review of Systems Review of Systems: All systems reviewed & are unremarkable except as noted in HPI & below Physical Exam Constitutional: WD/WN, vitals as above comfortable; no acute distress Eyes: PERRL, conjunctivae normal, anicteric sclerae ENMT: external ear and nose normal, oropharynx normal Neck: trachea midline, no thyromegaly neck nontender Respiratory: normal respiratory effort, lungs clear to auscultation normal percussion; does not use accessory muscles Cardiovascular: Rate/Rhythm: regular rate and regular rhythm Heart Sounds: normal S1 and normal S2; no gallop, no murmur and no cardiac rub Vessels: normal peripheral pulses; no JVD Gastrointestinal (Abdomen): normal bowel sounds, soft, nontender, no hepatosplenomegaly Musculoskeletal: no cyanosis or clubbing, extremities motor strength 5/5 Spine: thoracic spine normal to inspection and lumbar spine normal to inspection; no cervical spinal tenderness Skin: no rashes, warm and dry normal turgor; no lesions Neurologic: patellar DTR's 2+ bilat, sensation intact no focal motor deficits Psychiatric: A+Ox3, euthymic affect Orientation: cooperative Lymphatic: no cervical or axillary lymphadenopathy no inguinal lymphadenopathy Results & Data Vital Signs (Past 12 Hours) Vital Signs Temp Pulse Pulse Resp BP Pulse Ox 03/13/19 21:15 82 166/68 H 03/13/19 15:31 36.7 C 86 17 170/78 H 93 03/13/19 11:07 36.8 C 74 18 168/72 H 95 03/13/19 10:30 36.7 C 74 18 161/78 H 95 03/13/19 10:15 36.9 C 86 18 178/81 H 95 03/13/19 10:00 36.6 C 80 18 166/94 H 94 03/13/19 09:45 36.7 C 76 16 163/82 H 94 Laboratory Results Short CBC 03/13/19 Range/Units 06:35 WBC 12.31 H (4.8-10.8) K/uL Hgb 9.4 L (12.0-16.0) g/dL Hct 28.0 L (37-47) % Plt Count 155 (130-400) K/uL BMP 03/13/19 06:35 Sodium 141 Potassium 2.8 L Chloride 109 H Carbon Dioxide 22 BUN 7 Creatinine 0.80 Glucose 87 Calcium 8.1 L Diagnostic Findings Microbiology 03/12/19 16:42 Blood Aerobic Blood Culture - Preliminary No growth in Aerobic bottle after 24 hours. 03/12/19 16:35 Blood Aerobic Blood Culture - Preliminary No growth in Aerobic bottle after 24 hours. 03/10/19 15:51 Blood Aerobic Blood Culture - Final Staphylococcus aureus 03/10/19 15:51 Blood Anaerobic Blood Culture - Final 03/10/19 15:50 Blood Aerobic Blood Culture - Final Staphylococcus aureus 03/10/19 15:50 Blood Anaerobic Blood Culture - Final 03/09/19 14:41 Stool Escherichia coli Shiga Toxins Test - Final 03/09/19 14:41 Stool Stool Culture - Final No Salmonella isolated, No Shigella isolated, No Campylobacter jejuni isolated. 03/09/19 14:41 Stool WBC Smear - Final PG Care Time/CCT Total # of Minutes Spent Total Time Spent with Patient: Total time spent is greater than 50% in coordination of care (as documented) at patient's floor/unit and/or counseling patient:
[2019-03-14] MEDS: POTASSIUM CHLORIDE / WTR 10 MEQ/100 ML PLCT IV SCH ×4 (06:38→11:13)
[2019-03-14 07:25] LABS: Basophils # (auto) 0.03 K/uL (0-0.2); Basophils % (auto) 0.2 %; Eosinophils # (auto) 0.06 K/uL (0-0.5); Eosinophils % (auto) 0.5 %; Hematocrit (blood only) 27.9 % (37-47); Hemoglobin 9.5 g/dL (12.0-16.0); Immature Granulocytes # (auto) 0.27 K/uL (0.00-0.02); Immature Granulocytes % (auto) 2.1 %; Lymphocytes # (auto) 1.22 K/uL (1.2-3.4); Lymphocytes % (auto) 9.5 %; Mean Corpuscular Hemoglobin 31.8 pg (25-34); Mean Corpuscular Hgb Conc 34.1 g/dL (32-36); Mean Corpuscular Volume 93.3 fL (80-100); Mean Platelet Volume 9.6 fL (7.4-10.4); Monocytes % (auto) 7.8 %; Neutrophils % (auto) 79.9 %; Platelet Count 170 K/uL (130-400); RDW Coefficient of Variation 15.3 % (11.5-14.5); RDW Standard Deviation 52.5 fL (36.4-46.3); Red Blood Count 2.99 M/uL (4.2-5.4); White Blood Count 12.78 K/uL (4.8-10.8)
[2019-03-14 08:01] LABS: BUN Creatinine Ratio 3.8 (10-20); Calcium 8.3 mg/dl (8.5-10.1); Creatinine Clr Calc Pharmacy 65.2 ml/min; Est GFR (African American) 87.1; Est GFR (Non-African American) 75.2; Potassium 2.8 mmol/L (3.5-5.1)
--- NOTE | 2019-03-14 09:03 | XRay Report ---
SINGLE VIEW CHEST CLINICAL HISTORY: PICC placement. FINDINGS: An AP, portable, upright chest radiograph is compared to study dated 03/08/2019 and correlat ed with chest CT dated 08/13/2018. The examination is degraded by portable technique and patient rotat ion. A hiatal hernia is noted. A 2-lead cardiac pacemaker is unchanged in position and partially obsc ures the left upper chest. A right PICC line has been placed. The tip of the catheter projects over t he cavoatrial junction. The heart is mildly enlarged. The pulmonary vasculature is noncongested. Ther e is volume loss and postoperative change consistent with right-sided pulmonary resection. There is b ibasilar scarring/atelectasis. No airspace consolidation or large pleural effusion is identified. No pneumothorax is seen. The skeletal structures are osteopenic. The bony thorax is grossly intact. IMPRESSION: 1. A right-sided PICC line has been placed. The tip of the catheter projects over the cavoatrial junc tion. 2. Cardiomegaly and cardiac pacemaker. There is no radiographic evidence of congestive failure. 3. Postoperative change is again noted in the right lung. Electronically signed by: Nish Conley M.D. 03/14/2019 9:01 AM
[2019-03-14] MEDS: CEFAZOLIN 2000MG 2,000 MG/15 ML SYR IV SCH (09:12)
[2019-03-14] MEDS: SODIUM CHLORIDE 0.9% 1000ML 1,000 ML IV SCH (09:14)
[2019-03-14] MEDS: MOMETASONE/FORMOTEROL INH SCH (09:14)
[2019-03-14] MEDS: BusPIRone 15 MG TAB PO SCH (09:14)
[2019-03-14] MEDS: ESCITALOPRAM OXALATE 10 MG TAB PO SCH (09:15)
[2019-03-14] MEDS: PANTOprazole 40 MG TAB PO SCH (09:16)
[2019-03-14] MEDS: FAMOTIDINE 20 MG TAB PO SCH (09:16)
[2019-03-14] MEDS ORDERED: cefTRIAXone SODIUM 2,000 MG in DEXTROSE 5% 50 ML IV STA (11:45)
--- NOTE | 2019-03-26 04:44 | Discharge Summary ---
Date of Service March 14, 2019 Admission HPI Per Admitting Provider Chief Complaint: intractable nausea, loose stools, epigastric pain Primary Care Provider: Brooks Eddy MD 68 yo F with PMH HTN and asthma and anemia on Fe (since a few weeks ago) presents with 2 day worsening of chills, nausea, nonbloody emesis and non bloody loose stools. Presented to ED earlier this evening, KUB unremarkable, labs with mild leukocytosis, hydrated with 1.5 L NSS and given zofran with good effect. She went home in good condition but then the nausea and chills began again and her brought her back by private vehicle. Denies sick contacts. Denies marijuana or other substance use. Has no known history of food allergies. Has no h/of abdominal surgeries. No new or exotic eating. And of note, has felt well. She had a bout of similar nonspecific gastrointestinal illness accompanied by low platelets while traveling in [facility] one month ago, but lyme (and presumably anaplasmosis?) all came back negative. Was treated empirically with doxycycline and has felt well since that day. Admission Exam Per Admitting Provider Constitutional: + obese Respiratory: normal respiratory effort Cardiovascular: Rate/Rhythm: regular rate and regular rhythm Gastrointestinal (Abdomen): Percussion/Palpation: abdomen soft Skin: + ecchymosis Principal Diagnosis Intractable nausea and vomiting acute RUQ abdominal pain Staph bacteremia Hypokalemia Asthma Anxiety HTN Loose stool Leukocytosis Discharge Exam Constitutional well developed and well nourished; no acute distress and not ill appearing Respiratory normal respiratory effort, lungs clear to auscultation Cardiovascular RRR, no murmur, no edema Extremities: no calf tenderness and no edema Skin no rashes, warm and dry Psychiatric Orientation: alert Discharge Data Allergies Allergy/AdvReac Type Severity Reaction Status Date / Time mirtazapine Allergy Severe STRESS Verified 03/26/19 09:08 INDUCED CARDIOMYOPATHY levofloxacin Allergy Intermediate Hives Verified 03/26/19 09:08 Quinolones Allergy Intermediate HIVES Verified 03/26/19 09:08 sertraline Allergy Intermediate MAKES HER Verified 03/26/19 09:08 "CRAZY". Penicillins Allergy Mild RASH-KEFLEX Verified 03/26/19 09:[address] AMANDA Consultations 03/09/19 02:36 ED Decision to Admit Stat 03/09/19 15:42 Consult General Surgery Routine 03/10/19 15:10 Consult Gastroenterology Routine 03/11/19 14:37 Consult Infectious Diseases Routine Procedures Performed Operation Date: 03/12/19 09:30 Actual Procedures p Esophagogastroduodenoscopy - Modesto Hermosillo Operation Date: 03/13/19 08:00 Actual Procedures p Echo Transesophageal - Yvan Butler MD Ordered Studies 03/09/19 03:36 US abdomen limited Routine Hospital Course (1) Bacteremia: Staphylococcus aureus bacteremia without sepsis: 68-year-old female hospitalized with intractable nausea and vomiting RUQ and epigastric pain a/w loose stools. RUQ and epigastric abdominal pain w/ nausea and vomiting - sec to underlying bacteremia - Abdominal ultrasound revealed: no acute pathology of the gallbladder but there were stones noted - HIDA scan showed no evidence of cystic duct obstruction and normal EF - Kept on IVF - surgery followed, - GI followed, EGD showed no acute pathology of the stomach or esophagus that could explain patients pathology, Hiatal hernia noted - Diet later advanced and tolerated well. -symptoms likely from underlying infection/bacteremia Bacteremia w/ 2 positive blood cultures (gram positive cocci) and 1/2 positive cultures at 48 hours -WBC elevated on admission. - On admission - Was started on IV rocephin on admission for concern of cholecystitis. -Blood cultures were positive X2 and repeat at 48 hours positive X1 for staph aureus MSSA. - ID consulted -Abx switched on cefazolin, - ECHO TTE (03/11) no vegetations noted. - THERESA on 03/13 show: No definitive vegetation but fibrinous material on the pacing leads - PICC line placed. Discharged home on Ceftriaxone 2,000 mg IV daily for 6 weeks - At the time of discharge - Her 48 hr repeat blood cultures positive 1/2 - blood cultures ordered for the and will follow up with Patient, Dr. Espinoza, and Dr. Eddy with the results Hypokalemia likely 2/2 decreased intake - replaced over hospitalization course Loose stool - resolved - C. diff neg - no salmonella, shigella, campy FINAL HTN - continue home Nebivolol 2.5 mg PO QPM Asthma - continue home Dulera GERD - continue Famotidine 40 mg PO BID - continue Pantoprazole 40 mg BID Anxiety - continue home Buspirone 15 mg BID, Lexapro 30 mg PO QAM, Lorazepam 1 mg PO HS (2) Staphylococcus aureus bacteremia without sepsis: (3) Nausea vomiting and diarrhea: (4) Thrombocytopenia: (5) Anxiety: (6) HTN (hypertension): Total Time Total Time Spent Total Time Spent (In Minutes): See attendings addendum Discharge Plan Discharge Items Patient Disposition: Home - Self-Care Reason For Visit: INTRACTABLE NAUSEA Discharge Diagnosis: Staph Bacteremia Activity: Per Instructions section Non-emergency contact: Primary Care Provider Call non-emergency contact if: your symptoms worsen and your temperature is above 101 Follow-up/Referrals: Brooks Eddy MD [Primary Care Provider] - Diet: Low Fat Addtl Attending Provider Instructions: You came into the hospital with nausea, vomiting, and abdominal pain. We did an ultrasound that found that you have gallstones, but no acute process affecting your gallbladder. These results were confirmed with another study of your gallbladder's function. You then had the GI doctors place a tube down your throat to look at your stomach to evaluate you for other possible causes of you abdominal pain. The study by GI, showed that your esophagus, stomach and the fi rst part of your intestines were normal. Surgery has left instructions to follow up with them a the bottom of this note. You did not have a diet most of your hospitalization but when we started to give you thickened liquids you were able to keep it down and had only mild nausea. slowly reintroduce food into your diet and stick to primarily bland foods. After sampling your blood early in your hospitalization we were able to see that you had a bacterial infection of the bloodstream. We also looked at your heart with two ultrasound tests. The second ultrasound found something on your pace makers wire, this was concerning for infectious material. Since this could be a bacterial infection within your heart we are going to treat you with antibiotics for 6 weeks to ensure that you clear the infection. You will need to get blood cultures after 6 weeks to ensure the infection does not return. The only new medication was the antibiotic that we had given to you for your bloodstream infection. If you are having nausea and vomiting that you are not able to manage with home medications, or you are having fevers and chills you should call or return to be evaluated. Surgical discharge instructions/Recommendations: -Due to having gallstones , recommend low fat diet and avoid fried/greasy foods - You can follow-up with Dr. Vázquez a few weeks after discharge, call office at [phone] to make an appointment. Pending Studies at Discharge: Yes Studies:: finalized blood cultures Stand-Alone Forms: My [facility] Medications and DC Order Prescriptions: Continued Dulera 200-5 mcg/actuation HFA aerosol inhaler 2 puffs INH BID Qty: 13 RF: 11 nebivolol 2.5 mg tablet 2.5 mg PO QAM RF: 0 escitalopram oxalate 20 mg tablet 30 mg PO QAM RF: 0 buspirone 15 mg tablet 15 mg PO BID RF: 0 lorazepam 1 mg tablet 1 mg PO HS RF: 0 fexofenadine 180 mg tablet 180 mg PO DAILY PRN (Reason: allergies) RF: 0 famotidine [Pepcid] 40 mg Tablet 40 mg PO QAM RF: 0 acetaminophen [Tylenol Extra Strength] 500 mg Tablet 1,000 mg PO Q6H PRN (Reason: Pain) RF: 0 Combivent Respimat 20-100 mcg/actuation Mist 1 puff INHALATION Q6H PRN (Reason: SOB) RF: 0 No Action ondansetron HCl [Zofran] 4 mg tablet 4 mg PO Q6H PRN (Reason: nausea and vomiting) Qty: 10 RF: 0 Discharge Orders: Discharge Order (Routine); Ordered 03/14/19 Ordered By: Royal Sam Admission Data Admit Date/Time: 03/11/19 11:11 Attending Provider: Margaret Cedillo Admit Provider: Supriya Murphy Primary Care Provider: Brooks Eddy Other Providers: Fabrziio Arreola ; Johanna Daniels ; Reggie Vázquez ; Royal Pineda ; Modesto Hermosillo ; Nataliya Bethea Other Interventions: Discharge Summary Assessment (RN) Last Done: 03/14/19 13:43 DC Date/Time DO NOT enter until pt leaves facility: 03/14/19 14:16 Supervising Physician Co-Signing Physician Notes Resident Physician Supervision Note: I independently interviewed and examined the patient and verified the beaver history and physical, reviewed labs and image studies, discussed the case with the resident Dr. Sam and agree with the findings and care plan. Time spent in discharge 35 min Resident Activity Tracking Resident Involvement: Resident Care Provided Care Provided: Adult Hospital Medicine
== END 2019-03-14 14:16 | disposition home or self-care (01) | DRG 872 ==
LOC: 2W 00:03 → ED 00:03 → SUATTDRO 02:37 → 2W 03:08

== ENCOUNTER 2020-07-29 19:39 | Inpatient (IN) ==
[2020-07-29] MEDS ORDERED: DEXAMETHASONE SOD INJ 10 MG/ML VIAL IV ONE (19:51)
[2020-07-29] MEDS ORDERED: ALBUTEROL HFA 8 GM INHALER INH ONE (19:51)
[2020-07-29] MEDS ORDERED: ERTAPENEM SODIUM 10 ML IV STA (19:51)
--- NOTE | 2020-07-29 20:01 | Emergency Department Note ---
Impression & Plan Hypoxia, SOB (shortness of breath), COVID-19, Pneumonia ED Provider Note NAME: EULOGIO ZHOU AGE: 69 SEX: F : 1950 ARRIVES VIA: Ambulance INFORMANT: [Patient][ems] ED PROVIDER(S): [Nish Yeh MD] CHIEF COMPLAINT: Shortness of breath HISTORY OF PRESENT ILLNESS: The patient is a 69-year-old female who has felt poorly for about a week and a 1/2 to 2 weeks. She states that she had a low-grade fever and cough. She has lost her taste and smell. She states that she has become more and more short of breath especially over the last week. Only a few steps and she is very short of breath and has almost passed out. She did take some prednisone for 5 days at the start of the illness and this did seem to help the cough. The patient has underlying lung disease--asthma. She also has small cell lung cancer. The patient states that her tested positive for Covid, he is actually admitted to our hospital in the ICU. The patient's other family members also tested positive but they are not hospitalized. The patient herself has not been tested but she presumes she has Covid. The patient has not had vomiting or diarrhea. She denies any chest pain. As per EMS, her O2 saturation dropped to 90%, she was placed on 2 L of oxygen. Of note, the patient did receive her first dose of Covid vaccine just after she began feeling poorly. REVIEW OF SYSTEMS: See HPI for pertinent positives and negatives. A total of ten systems were reviewed and were otherwise negative. PMHx/PSHx: See Below SOCIAL HISTORY: See Below. PHYSICAL EXAM: GENERAL: Patient is in no acute distress. HEENT: No acute trauma, normocephalic atraumatic, mucous membranes moist, no nasal congestion, no scleral icterus. NECK: No stridor, no adenopathy, no meningismus, trachea is midline. LUNGS: No obvious respiratory distress. Some slight increase to the respiratory rate. Speaks in full sentences. HEART: Mildly tachycardic, regular rhythm, equal radial pulses bilaterally. ABDOMEN: Soft, nontender, bowel sounds positive, no hernias, no peritonitis. EXTREMITIES: No cyanosis, full range of motion of all the joints without pain or difficulty, no signs for acute trauma. NEUROLOGIC: Oriented x 3, no acute motor or sensory deficits, no focal weakness. SKIN: No rash, no jaundice, no diaphoresis. DIFFERENTIAL DIAGNOSIS: Sepsis, UTI, pneumonia, metabolic abnormality, electrolyte abnormalities, COVID- 19, pneumonia, cardiac sources, cellulitis, UTI, bacteremia, intracerebral event, toxicologic etiology, neurologic event, as well as other pathologies. EMERGENCY DEPARTMENT COURSE/PROCEDURES: ECG: Indication was shortness of breath. The ECG shows a sinus tachycardia with some baseline artifact. There is a right bundle branch block. The rate is 109. The QTc is 482. There is no ST elevation, no PVCs. Compared to an ECG from 08 March 2019, there is no significant change. Continuous Cardiac Monitoring: An order was placed for continuous cardiac monitoring. The monitor shows a rate of 102 with sinus tachycardia. Critical Care Note: I have personally spent 53 minutes of critical care time in the direct management of this patient. This includes bedside care, interpretation of diagnostic studies, and testing, discussion with consultants, patient, and family members, and other required patient management activities. This 53 minutes is in excess of all separately billable procedures. MEDICAL DECISION MAKING: There is a mild leukocytosis, this could be consistent with infection. There is a normal hemoglobin and platelet count. No coagulopathy. No significant electrolyte abnormality or kidney failure. Lactic acid level and procalcitonin levels were normal making severe sepsis less likely. There is no concerning liver enzyme elevation. ECG showed a sinus tachycardia, no acute ischemia. Cardiac enzyme testing x1 is not consistent with acute cardiac injury. Urinalysis showed possible infection versus contamination, urine culture is pending. Covid testing returned positive. Influenza testing returned negative. Chest film did show a bilateral pneumonia consistent with the possibility of a Covid infection. Chest CT showed bilateral pneumonia thought to be viral, there was no PE. No pneumothorax. The patient was given IV Decadron, 6 mg. This was administered because of her Covid diagnosis and hypoxia--the patient's O2 saturation dropped to 87% when she tried to go from her stretcher to the bathroom. She received 2 puffs of albuterol via MDI. She received IV ertapenem as empiric antibiotic coverage. The patient is hypoxic with exertion. If she is still, she seems to do okay. She has Covid pneumonia and underlying lung disease. I do think hospitalization is warranted. I spoke to the patient and case picker. The on-call hospitalist was consulted. Past Med/Surg History Medical History Anxiety Asthma Heart disease History of cancer of upper lobe bronchus or lung HTN (hypertension) Nausea vomiting and diarrhea Pulmonary nodule, right Staphylococcus aureus bacteremia without sepsis Thrombocytopenia Surgical History S/P lobectomy of lung S/P placement of cardiac pacemaker Wrist fracture, left S/P repair Family History Other Cancer Heart disease Hypertension Lung disease Social History Smoking Status: Never smoker Hx Alcohol Use: Yes Hx Substance Use: No Preferred Language: Kittitian Communication Ability: Effective Wardrobe Stylist Required: No Beliefs That Will Affect Care: None marital status: Current Living Situation: Spouse Feels Safe at Home: Yes Assistive Devices: None Allergies Allergies Allergy/AdvReac Type Severity Reaction Status Date / Time mirtazapine Allergy Severe STRESS Verified 06/22/20 13:18 INDUCED CARDIOMYOPATHY levofloxacin Allergy Intermediate Hives Verified 06/22/20 13:18 Quinolones Allergy Intermediate HIVES Verified 06/22/20 13:18 sertraline Allergy Intermediate MAKES HER Verified 06/22/20 13:18 "CRAZY". Penicillins Allergy Mild RASH-KEFLEX Verified 06/22/20 13:[address] AMANDA Home Meds Home Medications Medication Instructions Recorded Confirmed buspirone 15 mg tablet 15 mg PO BID tab 03/06/19 07/29/20 escitalopram oxalate 20 mg tablet 30 mg PO QAM tab 03/06/19 07/29/20 fexofenadine 180 mg tablet 180 mg PO DAILY PRN tab 03/06/19 07/29/20 acetaminophen [Tylenol Extra 1,000 mg PO Q6H PRN 03/08/19 07/29/20 Strength] famotidine [Pepcid] 40 mg PO QAM 03/08/19 07/29/20 lorazepam 1 mg tablet 3 mg PO HS PRN tab 10/25/19 07/29/20 albuterol sulfate 2 puff INHALATION Q6H PRN 07/29/20 07/29/20 fluticasone propion-salmeterol 1 inh INHALATION BID 07/29/20 07/29/20 [Wixela Inhub] Previous Rx's Medication Instructions Recorded nebivolol 2.5 mg tablet 2.5 mg PO DAILY #30 tab 04/13/20 tiotropium bromide 2.5 2 inh INHALATION QAM #4 g 06/22/20 mcg/actuation mist for inhalation pseudoephedrine HCl 120 mg 120 mg PO BID 30 Days #60 tab 06/23/20 tablet,extended release Results & Data (ED) Vital Signs Vital Signs - 24 hr 07/29/20 19:46 07/29/20 19:58 07/29/20 20:20 Temperature 37.2 C Temperature Source Oral Pulse Rate 111 H Pulse Rate [Apical] Pulse Rate from SpO2 Sensor Respiratory Rate 18 Blood Pressure 143/107 H Blood Pressure [Left Arm] Blood Pressure Mean 119 Blood Pressure Mean [Left Arm] Pulse Oximetry 93 93 92 Oxygen Delivery Method Room Air Room Air Room Air Sepsis Recent Fever Within 48 Hours Yes Sepsis New/Unexplained Change in Mental Status N/A Sepsis Action Taken by Nursing No Action Required 07/29/20 20:27 07/29/20 20:30 07/29/20 21:00 Temperature Temperature Source Pulse Rate 103 H 102 H Pulse Rate [Apical] 105 H Pulse Rate from SpO2 Sensor 102 H Respiratory Rate 18 19 16 Blood Pressure 129/75 132/85 Blood Pressure [Left Arm] 139/81 Blood Pressure Mean 93 100 Blood Pressure Mean [Left Arm] 100 Pulse Oximetry 93 93 94 Oxygen Delivery Method Room Air Room Air Room Air Sepsis Recent Fever Within 48 Hours Sepsis New/Unexplained Change in Mental Status Sepsis Action Taken by Nursing 07/29/20 21:30 07/29/20 21:58 07/29/20 22:00 Temperature Temperature Source Pulse Rate 99 H 99 H Pulse Rate [Apical] Pulse Rate from SpO2 Sensor 99 H 99 H Respiratory Rate 18 16 Blood Pressure 149/75 H 166/99 H Blood Pressure [Left Arm] Blood Pressure Mean 99 121 Blood Pressure Mean [Left Arm] Pulse Oximetry 92 87 L 93 Oxygen Delivery Method Room Air Room Air Room Air Sepsis Recent Fever Within 48 Hours Sepsis New/Unexplained Change in Mental Status Sepsis Action Taken by Longterm Medications Current Medication List: was personally reviewed by me Laboratory Data Attestation: I reviewed the patient's lab results. Result diagrams: 07/29/20 20:19 07/29/20 20:19 Lab Results 07/29/20 07/29/20 07/29/20 Range/Units 20:19 20:19 20:19 WBC 12.66 H (4.8-10.8) K/uL RBC 4.03 L (4.2-5.4) M/uL Hgb 12.8 (12.0-16.0) g/dL Hct 37.5 (37-47) % MCV 93.1 (80-100) fL MCH 31.8 (25-34) pg MCHC 34.1 (32-36) g/dL RDW Std Deviation 43.0 (36.4-46.3) fL RDW Coeff of Nev[place] 12.7 (11.5-14.5) % Plt Count 267 (130-400) K/uL MPV 9.6 (7.4-10.4) fL Immature Gran % (Auto) 0.6 % Neut % (Auto) 86.5 % Lymph % (Auto) 6.6 % [place] % (Auto) 5.7 % Eos % (Auto) 0.4 % Baso % (Auto) 0.2 % Neut # (Auto) 10.96 H (1.4-6.5) K/uL Lymph # (Auto) 0.84 L (1.2-3.4) K/uL [place] # (Auto) 0.72 H (0.11-0.59) K/uL Eos # (Auto) 0.05 (0-0.5) K/uL Baso # (Auto) 0.02 (0-0.2) K/uL Immature Gran # (Auto) 0.07 H (0.00-0.02) K/uL PT (9.0-12.0) Seconds INR (0.9-1.1) APTT (21.0-31.0) Seconds PTT Ratio Sodium 139 (136-145) mmol/L Potassium 3.4 L (3.5-5.1) mmol/L Chloride 104 (98-107) mmol/L Carbon Dioxide 28 (21-32) mmol/L Anion Gap 7.0 (3-11) BUN 13 (7-18) mg/dl Creatinine 1.03 (0.6-1.2) mg/dl Est Cr Clr Drug Dosing 53.0 ml/min Est GFR ( Amer) 64.7 Est GFR (Non-Af Amer) 55.8 BUN/Creatinine Ratio 12.2 (10-20) Glucose 124 H (70-99) mg/dl Lactate (0.4-2.0) mmol/L Calcium 8.5 (8.5-10.1) mg/dl Magnesium 2.0 (1.8-2.4) mg/dl Total Bilirubin 0.4 (0.2-1) mg/dl AST 17 (15-37) U/L ALT 16 (12-78) U/L Alkaline Phosphatase 91 (45-117) U/L Troponin I < 0.015 (0-0.045) ng/ml Total Protein 6.7 (6.4-8.2) gm/dl Albumin 2.7 L (3.4-5.0) gm/dl Globulin 4.0 (2.5-4.0) gm/dl Albumin/Globulin Ratio 0.7 L (0.9-2) Procalcitonin 0.12 (0-0.5) ng/ml Urine Color Urine Appearance (Clear) Urine pH (4.5-7.5) Ur Specific [place] (1.000-1.030) Urine Protein (Negative) Urine Glucose (UA) (Negative) Urine Ketones (Negative) Urine Blood (Negative) Urine Nitrite (Negative) Urine Bilirubin (Negative) Urine Urobilinogen (Negative) Ur Leukocyte Esterase (Negative) Urine RBC (0-4) /hpf Urine WBC (0-5) /hpf Ur Epithelial Cells (0-5) /lpf Ur Renal Epithelial Cell (0-5) /lpf Urine Bacteria (Negative) COVID-19 Eval Order SARS-CoV-2 (PCR) (Negative) Influenza Type A (PCR) (Neg) Influenza Type B (PCR) (Neg) RSV (RT-PCR) (Neg) 07/29/20 07/29/20 07/29/20 Range/Units 20:19 20:19 20:44 WBC (4.8-10.8) K/uL RBC (4.2-5.4) M/uL Hgb (12.0-16.0) g/dL Hct (37-47) % MCV (80-100) fL MCH (25-34) pg MCHC (32-36) g/dL RDW Std Deviation (36.4-46.3) fL RDW Coeff of Neva (11.5-14.5) % Plt Count (130-400) K/uL MPV (7.4-10.4) fL Immature Gran % (Auto) % Neut % (Auto) % Lymph % (Auto) % [place] % (Auto) % Eos % (Auto) % Baso % (Auto) % Neut # (Auto) (1.4-6.5) K/uL Lymph # (Auto) (1.2-3.4) K/uL [place] # (Auto) (0.11-0.59) K/uL Eos # (Auto) (0-0.5) K/uL Baso # (Auto) (0-0.2) K/uL Immature Gran # (Auto) (0.00-0.02) K/uL PT 10.7 (9.0-12.0) Seconds INR 1.1 (0.9-1.1) APTT 35.8 H (21.0-31.0) Seconds PTT Ratio 1.4 Sodium (136-145) mmol/L Potassium (3.5-5.1) mmol/L Chloride (98-107) mmol/L Carbon Dioxide (21-32) mmol/L Anion Gap (3-11) BUN (7-18) mg/dl Creatinine (0.6-1.2) mg/dl Est Cr Clr Drug Dosing ml/min Est GFR ( Amer) Est GFR (Non-Af Amer) BUN/Creatinine Ratio (10-20) Glucose (70-99) mg/dl Lactate 1.0 (0.4-2.0) mmol/L Calcium (8.5-10.1) mg/dl Magnesium (1.8-2.4) mg/dl Total Bilirubin (0.2-1) mg/dl AST (15-37) U/L ALT (12-78) U/L Alkaline Phosphatase (45-117) U/L Troponin I (0-0.045) ng/ml Total Protein (6.4-8.2) gm/dl Albumin (3.4-5.0) gm/dl Globulin (2.5-4.0) gm/dl Albumin/Globulin Ratio (0.9-2) Procalcitonin (0-0.5) ng/ml Urine Color Urine Appearance (Clear) Urine pH (4.5-7.5) Ur Specific [place] (1.000-1.030) Urine Protein (Negative) Urine Glucose (UA) (Negative) Urine Ketones (Negative) Urine Blood (Negative) Urine Nitrite (Negative) Urine Bilirubin (Negative) Urine Urobilinogen (Negative) Ur Leukocyte Esterase (Negative) Urine RBC (0-4) /hpf Urine WBC (0-5) /hpf Ur Epithelial Cells (0-5) /lpf Ur Renal Epithelial Cell (0-5) /lpf Urine Bacteria (Negative) COVID-19 Eval Order CovFluRsv at [facility] SARS-CoV-2 (PCR) (Negative) Influenza Type A (PCR) (Neg) Influenza Type B (PCR) (Neg) RSV (RT-PCR) (Neg) 07/29/20 07/29/20 Range/Units 20:44 Unknown WBC (4.8-10.8) K/uL RBC (4.2-5.4) M/uL Hgb (12.0-16.0) g/dL Hct (37-47) % MCV (80-100) fL MCH (25-34) pg MCHC (32-36) g/dL RDW Std Deviation (36.4-46.3) fL RDW Coeff of Neva (11.5-14.5) % Plt Count (130-400) K/uL MPV (7.4-10.4) fL Immature Gran % (Auto) % Neut % (Auto) % Lymph % (Auto) % [place] % (Auto) % Eos % (Auto) % Baso % (Auto) % Neut # (Auto) (1.4-6.5) K/uL Lymph # (Auto) (1.2-3.4) K/uL [place] # (Auto) (0.11-0.59) K/uL Eos # (Auto) (0-0.5) K/uL Baso # (Auto) (0-0.2) K/uL Immature Gran # (Auto) (0.00-0.02) K/uL PT (9.0-12.0) Seconds INR (0.9-1.1) APTT (21.0-31.0) Seconds PTT Ratio Sodium (136-145) mmol/L Potassium (3.5-5.1) mmol/L Chloride (98-107) mmol/L Carbon Dioxide (21-32) mmol/L Anion Gap (3-11) BUN (7-18) mg/dl Creatinine (0.6-1.2) mg/dl Est Cr Clr Drug Dosing ml/min Est GFR ( Amer) Est GFR (Non-Af Amer) BUN/Creatinine Ratio (10-20) Glucose (70-99) mg/dl Lactate (0.4-2.0) mmol/L Calcium (8.5-10.1) mg/dl Magnesium (1.8-2.4) mg/dl Total Bilirubin (0.2-1) mg/dl AST (15-37) U/L ALT (12-78) U/L Alkaline Phosphatase (45-117) U/L Troponin I (0-0.045) ng/ml Total Protein (6.4-8.2) gm/dl Albumin (3.4-5.0) gm/dl Globulin (2.5-4.0) gm/dl Albumin/Globulin Ratio (0.9-2) Procalcitonin (0-0.5) ng/ml Urine Color Yellow Urine Appearance Clear (Clear) Urine pH 7.0 (4.5-7.5) Ur Specific [place] 1.020 (1.000-1.030) Urine Protein Negative (Negative) Urine Glucose (UA) Negative (Negative) Urine Ketones Negative (Negative) Urine Blood Negative (Negative) Urine Nitrite Negative (Negative) Urine Bilirubin Negative (Negative) Urine Urobilinogen Negative (Negative) Ur Leukocyte Esterase 1+ H (Negative) Urine RBC 0-4 (0-4) /hpf Urine WBC >30 H (0-5) /hpf Ur Epithelial Cells 5-10 H (0-5) /lpf Ur Renal Epithelial Cell 0-5 (0-5) /lpf Urine Bacteria Negative (Negative) COVID-19 Eval Order SARS-CoV-2 (PCR) POSITIVE A* (Negative) Influenza Type A (PCR) Negative (Neg) Influenza Type B (PCR) Negative (Neg) RSV (RT-PCR) Negative (Neg) Administered Medications Discontinued Medications Albuterol (Albuterol Hfa 8 Gm Inhaler) 2 puffs INH NOW ONE Stop: 07/29/20 19:52 Last Admin: 07/29/20 20:22 Dose: 2 puffs Documented by: [id number] Dexamethasone (Dexamethasone Sod Inj 10 Mg/Ml Vial) 6 mg IV NOW ONE Stop: 07/29/20 19:52 Last Admin: 07/29/20 20:22 Dose: 6 mg Documented by: [id number] Ertapenem (Invanz) 10 mls @ 2 mls/min IV NOW STA Stop: 07/29/20 19:55 Last Admin: 07/29/20 20:23 Dose: 2 mls/min Documented by: [id number] Ioversol (Optiray 320 125ml) 120 ml IV ONCE ONE Stop: 07/29/20 21:14 Last Admin: 07/29/20 21:13 Dose: 120 ml Documented by: [id number] Labetalol HCl (Labetalol Hcl Iv 5 Mg/Ml 20ml) 10 mg IV NOW STA Stop: 07/29/20 20:31 Last Admin: 07/29/20 20:36 Dose: Not Given Documented by: [id number] Imaging Data Radiologist's Impression: XR chest 1V portable HISTORY: SEPSIS COMPARISON: Chest 03/14/2019. FINDINGS: Right Port-A-Cath terminates in the distal SVC. No pneumothorax. No pleural effusions. There is a left-sided dual-chamber pacemaker. Chronic right basilar opacity and volume loss within the right hemithorax remains in change. There is also stable distortion of the right hilum. This favors postoperative change. There are new patchy densities within the base of the left lower lobe. The upper lung zones are clear. IMPRESSION: 1. There are new patchy densities within the left lower lobe. This likely represents a pneumonia. Recommend follow-up to resolution. 2. No change in the appearance of the right hemithorax suggestive of postoperative change. Chest CT for PE: There was no evidence for pulmonary embolus. No aneurysm or aortic dissection. Patchy ground glass opacities were seen throughout the lungs consistent with an infectious or inflammatory process such as COVID-19. There were some small hypodense nodules in the thyroid. There were some nonspecific mildly prominent mediastinal lymph nodes. There was a large hiatal hernia containing most of the stomach. There was a left-sided pacemaker. Gallstones were seen. Discharge Plan Visit Data Chief Complaint: Shortness of Breath/Dyspnea Stated Complaint: SOB, ED Provider: Nish Yeh Discharge Problem: Hypoxia, SOB (shortness of breath), COVID-19, Pneumonia Patient Disposition: Admitted As Inpatient Condition: Serious Forms Stand Alone Forms: [facility] [place] Prescriptions Prescriptions: No Action escitalopram oxalate 20 mg tablet 30 mg PO QAM RF: 0 buspirone 15 mg tablet 15 mg PO BID RF: 0 fexofenadine 180 mg tablet 180 mg PO DAILY PRN (Reason: allergies) RF: 0 lorazepam 1 mg tablet 3 mg PO HS PRN (Reason: Anxiety) RF: 0 Bystolic 2.5 mg tablet 2.5 mg PO DAILY Qty: 30 RF: 5 pseudoephedrine HCl [Sudafed 12 Hour] 120 mg tablet extended release 120 mg PO BID 30 Days Qty: 60 RF: 3 Spiriva Respimat 2.5 mcg/actuation mist 2 inh inhalation QAM Qty: 4 RF: 2 albuterol sulfate 90 mcg/actuation HFA aerosol inhaler 2 puff INHALATION Q6H PRN (Reason: Shortness Of Breath Or Wheezing) RF: 0 fluticasone propion-salmeterol [Wixela Inhub] 500-50 mcg/dose blister with device 1 inh INHALATION BID RF: 0 famotidine [Pepcid] 40 mg Tablet 40 mg PO QAM RF: 0 acetaminophen [Tylenol Extra Strength] 500 mg Tablet 1,000 mg PO Q6H PRN (Reason: Pain) RF: 0 Referrals Referrals: Brooks Eddy MD [Primary Care Provider] - Discharge Problem: Pneumonia Qualifiers: Pneumonia type: due to unspecified organism Laterality: bilateral Lung location: unspecified part of lung Qualified Code(s): J18.9 - Pneumonia, unspecified organism
[2020-07-29] MEDS ORDERED: LABETALOL HCL IV 5 MG/ML 20ML IV STA (20:30)
[2020-07-29 20:31] LABS: Basophils # (auto) 0.02 K/uL (0-0.2); Basophils % (auto) 0.2 %; Eosinophils # (auto) 0.05 K/uL (0-0.5); Eosinophils % (auto) 0.4 %; Hematocrit (blood only) 37.5 % (37-47); Hemoglobin 12.8 g/dL (12.0-16.0); Immature Granulocytes # (auto) 0.07 K/uL (0.00-0.02); Immature Granulocytes % (auto) 0.6 %; Lymphocytes # (auto) 0.84 K/uL (1.2-3.4); Lymphocytes % (auto) 6.6 %; Mean Corpuscular Hemoglobin 31.8 pg (25-34); Mean Corpuscular Hgb Conc 34.1 g/dL (32-36); Mean Corpuscular Volume 93.1 fL (80-100); Mean Platelet Volume 9.6 fL (7.4-10.4); Monocytes # (auto) 0.72 K/uL (0.11-0.59); Monocytes % (auto) 5.7 %; Neutrophils # (auto) 10.96 K/uL (1.4-6.5); Neutrophils % (auto) 86.5 %; Platelet Count 267 K/uL (130-400); RDW Coefficient of Variation 12.7 % (11.5-14.5); Red Blood Count 4.03 M/uL (4.2-5.4); White Blood Count 12.66 K/uL (4.8-10.8)
[2020-07-29 20:43] LABS: INR 1.1 (0.9-1.1); Partial Thromboplastin Ratio 1.4; Partial Thromboplastin Time 35.8 Seconds (21.0-31.0); Prothrombin Time 10.7 Seconds (9.0-12.0)
--- NOTE | 2020-07-29 20:48 | XRay Report ---
XR chest 1V portable HISTORY: SEPSIS COMPARISON: Chest 03/14/2019. FINDINGS: Right Port-A-Cath terminates in the distal SVC. No pneumothorax. No pleural effusions. Ther e is a left-sided dual-chamber pacemaker. Chronic right basilar opacity and volume loss within the ri ght hemithorax remains in change. There is also stable distortion of the right hilum. This favors pos toperative change. There are new patchy densities within the base of the left lower lobe. The upper l charito zones are clear. IMPRESSION: 1. There are new patchy densities within the left lower lobe. This likely represents a pneumonia. Rec ommend follow-up to resolution. 2. No change in the appearance of the right hemithorax suggestive of postoperative change. ACT 112: Negative or not required by law. Electronically signed by: Hany Rogers M.D. 07/29/2020 8:47 PM
[2020-07-29 20:49] LABS: Alanine Aminotransferase 16 U/L (12-78); Albumin Level 2.7 gm/dl (3.4-5.0); Aspartate Aminotransferase 17 U/L (15-37); BUN Creatinine Ratio 12.2 (10-20); Blood Urea Nitrogen 13 mg/dl (7-18); Calcium 8.5 mg/dl (8.5-10.1); Carbon Dioxide 28 mmol/L (21-32); Chloride 104 mmol/L (98-107); Est GFR (African American) 64.7; Est GFR (Non-African American) 55.8; Glucose 124 mg/dl (70-99); Potassium 3.4 mmol/L (3.5-5.1); Sodium 139 mmol/L (136-145)
[2020-07-29 20:54] LABS: Albumin Globulin Ratio 0.7 (0.9-2); Alkaline Phosphatase 91 U/L (45-117); Bilirubin,Total 0.4 mg/dl (0.2-1); Total Protein 6.7 gm/dl (6.4-8.2); Troponin I < 0.015 ng/ml (0-0.045)
[2020-07-29] MEDS ORDERED: OPTIRAY 320 125ml IV ONE (21:13)
[2020-07-29 21:29] LABS: Influenza A virus by PCR Negative (Neg); Influenza B virus by PCR Negative (Neg); RSV by PCR Negative (Neg)
[2020-07-29 21:36] LABS: SARS CoV2 RNA(COVID-19) InHosp POSITIVE (Negative)
[2020-07-29 22:21] LABS: Appearance Urine Clear (Clear); Bilirubin Urine Negative (Negative); Blood Urine Negative (Negative); Color Urine Yellow; Glucose Urine UA Negative (Negative); Ketones Urine Negative (Negative); Leukocyte Esterase Urine 1+ (Negative); Nitrite Urine Negative (Negative); Protein Urine Negative (Negative); Urobilinogen Urine Negative (Negative)
[2020-07-29 22:31] LABS: Bacteria Urine Negative (Negative); RBC Urine 0-4 /hpf (0-4); Renal Epithelial Cells Urine 0-5 /lpf (0-5); WBC Urine >30 /hpf (0-5)
--- NOTE | 2020-07-29 23:01 | History & Physical Report ---
Date of Service July 29, 2020 Assessment & Plan (1) COVID-19: 69yo C female with prior history of lung cancer s/p RUL lobectomy, HTN, Anxiety presenting with Covid-19 infection. Patient breathing comfortably, in no respiratory distress. Saturations on room air ranging from 87 - 94%. Pro calcitonin = 0.12. Patient has already received one dose of her Covid-19 vaccination. Hopefully this will help prevent her from developing severe disease. Patient's symptoms began > 10 days ago. Most likely would not benefit from Remdesivir or convalescent plasma at this stage of illness. -Admit to medical. Maintain isolation precautions - contact and airborne -Monitor respiratory status -Check BNP, PO4 -Dexamethasone 6mg IV daily -Lovenox 40mg BID for DVT ppx -Tylenol PRN fever -Albuterol HFA PRN SOB Present on Admission?: Yes (2) Anxiety: Chronic. Stable -Continue Buspirone 15mg po BID -Continue escitalopram oxalate -Ativan qHS PRN Present on Admission?: Yes (3) HTN (hypertension): Blood pressure elevated in ER -Continue nebivolol 2.5mg po daily -Continue to monitor Present on Admission?: Yes (4) Asthma: Chronic. No cough or wheeze at present -Continue Tiotropium. Fluticasone/Salmeterol -Continue to monitor F/E/N - Heplock. K repletion with 40mEq PO - repeat labs in AM, Heart healthy diet as tolerated Ppx - Lovenox 40 BID Code - DNR/DNI per discussion with patient Dispo - Admit to medical, Covid-19 precautions Present on Admission?: Yes History of Present Illness Chief Complaint: BARRIOS Primary Care Provider: Brooks Eddy MD Eden Sandoval is a 69yo female with prior history of lung cancer s/p right upper lobectomy, HTN and Asthma presenting with Covid-19 pneumonia, hypoxia. Patient's was recently admitted to [facility] with the same - is presently intubated in MICU. Patient began to feel fatigued around 07/18/19. She had her first dose of the Covid-19 vaccine administered on 07/20/20. She continued to feel fatigued and then developed low grade fever, loss of taste and BARRIOS. She has family members that have recently tested positive for Covid-19 as well. Patient denies PARKER, chest pain, palpitations, abdominal pain, nausea, vomiting, diarrhea, constipation. No additional complaints at this time. Patient is concerned about her . ER course: Albuterol 2 puffs, Dexamethasone 6mg IV, Ertapenem, Labetalol Allergies Allergy/AdvReac Type Severity Reaction Status Date / Time mirtazapine Allergy Severe STRESS Verified 06/22/20 13:18 INDUCED CARDIOMYOPATHY levofloxacin Allergy Intermediate Hives Verified 06/22/20 13:18 Quinolones Allergy Intermediate HIVES Verified 06/22/20 13:18 sertraline Allergy Intermediate MAKES HER Verified 06/22/20 13:18 "CRAZY". Penicillins Allergy Mild RASH-KEFLEX Verified 06/22/20 13:[address] AMANDA Home Medications Medication Instructions Recorded Confirmed Type buspirone 15 mg tablet 15 mg PO BID tab 03/06/19 07/29/20 History escitalopram oxalate 20 mg tablet 30 mg PO QAM tab 03/06/19 07/29/20 History fexofenadine 180 mg tablet 180 mg PO DAILY PRN tab 03/06/19 07/29/20 History acetaminophen [Tylenol Extra 1,000 mg PO Q6H PRN 03/08/19 07/29/20 History Strength] famotidine [Pepcid] 40 mg PO QAM 03/08/19 07/29/20 History lorazepam 1 mg tablet 3 mg PO HS PRN tab 10/25/19 07/29/20 History nebivolol 2.5 mg tablet 2.5 mg PO DAILY #30 tab 04/13/20 07/29/20 Rx tiotropium bromide 2.5 2 inh INHALATION QAM #4 g 06/22/20 07/29/20 Rx mcg/actuation mist for inhalation pseudoephedrine HCl 120 mg 120 mg PO BID 30 Days #60 tab 06/23/20 07/29/20 Rx tablet,extended release albuterol sulfate 2 puff INHALATION Q6H PRN 07/29/20 07/29/20 History fluticasone propion-salmeterol 1 inh INHALATION BID 07/29/20 07/29/20 History [Wixela Inhub] Past Med/Surg History Medical History Anxiety Asthma Heart disease History of cancer of upper lobe bronchus or lung HTN (hypertension) Pulmonary nodule, right Staphylococcus aureus bacteremia without sepsis Thrombocytopenia Surgical History S/P lobectomy of lung S/P placement of cardiac pacemaker Wrist fracture, left S/P repair Family History Other Cancer Heart disease Hypertension Lung disease Social History Smoking Status: Never smoker Hx Alcohol Use: Yes Hx Substance Use: No Preferred Language: Bengali Communication Ability: Effective Digital Sales Representative Required: No Beliefs That Will Affect Care: None marital status: Current Living Situation: Spouse Feels Safe at Home: Yes Assistive Devices: None Review of Systems Review of Systems: All systems reviewed & are unremarkable except as noted in HPI & below Physical Exam Physical Exam: General: patient resting comfortably, NAD, non-toxic in appearance, AA&O x 4, face mask in place Skin: warm, dry, intact, no rashes or lesions HEENT: NC/AT, PERRL, EOMI, anicteric sclera, conjunctiva without injection, external ear normal to inspection and nontender, nares patent, moist mucus membranes, dentition intact, no oropharyngeal lesions, neck supple, trachea midline, no LAD, no thyromegaly, no JVD Heart: +S1/S2, regular, no m/r/g, port in right chest wall, nontender, pacer in place Lungs: equal air entry bilaterally, no rales/rhonchi/wheezes Abd: +BS, soft, NT/ND, no masses/organomegaly/ascites Ext: warm, 2+ pulses in UE/LE bilaterally, no clubbing/cyanosis or edema Neuro: nonfocal, patient AA&O x 4, speech intact, no facial droop, moving all extremities on command with equal strength 5/5 Results & Data Results & Data ([facility]) Vital Signs (Past 12 Hours) Vital Signs Temp Pulse Pulse Resp BP BP Pulse Ox 07/29/20 22:00 99 H 16 166/99 H 93 07/29/20 21:58 87 L 07/29/20 21:30 99 H 18 149/75 H 92 07/29/20 21:00 102 H 16 132/85 94 07/29/20 20:30 103 H 19 129/75 93 07/29/20 20:27 105 H 18 139/81 93 07/29/20 20:20 92 07/29/20 19:58 93 07/29/20 19:46 37.2 C 111 H 18 143/107 H 93 Laboratory Results Lab Results 07/29/20 07/29/20 07/29/20 Range/Units 20:19 20:19 20:19 WBC 12.66 H (4.8-10.8) K/uL RBC 4.03 L (4.2-5.4) M/uL Hgb 12.8 (12.0-16.0) g/dL Hct 37.5 (37-47) % MCV 93.1 (80-100) fL MCH 31.8 (25-34) pg MCHC 34.1 (32-36) g/dL RDW Std Deviation 43.0 (36.4-46.3) fL RDW Coeff of [place] 12.7 (11.5-14.5) % Plt Count 267 (130-400) K/uL MPV 9.6 (7.4-10.4) fL Immature Gran % (Auto) 0.6 % Neut % (Auto) 86.5 % Lymph % (Auto) 6.6 % [place] % (Auto) 5.7 % Eos % (Auto) 0.4 % Baso % (Auto) 0.2 % Neut # (Auto) 10.96 H (1.4-6.5) K/uL Lymph # (Auto) 0.84 L (1.2-3.4) K/uL [place] # (Auto) 0.72 H (0.11-0.59) K/uL Eos # (Auto) 0.05 (0-0.5) K/uL Baso # (Auto) 0.02 (0-0.2) K/uL Immature Gran # (Auto) 0.07 H (0.00-0.02) K/uL PT (9.0-12.0) Seconds INR (0.9-1.1) APTT (21.0-31.0) Seconds PTT Ratio Sodium 139 (136-145) mmol/L Potassium 3.4 L (3.5-5.1) mmol/L Chloride 104 (98-107) mmol/L Carbon Dioxide 28 (21-32) mmol/L Anion Gap 7.0 (3-11) BUN 13 (7-18) mg/dl Creatinine 1.03 (0.6-1.2) mg/dl Est Cr Clr Drug Dosing 53.0 ml/min Est GFR ( Amer) 64.7 Est GFR (Non-Af Amer) 55.8 BUN/Creatinine Ratio 12.2 (10-20) Glucose 124 H (70-99) mg/dl Lactate (0.4-2.0) mmol/L Calcium 8.5 (8.5-10.1) mg/dl Magnesium 2.0 (1.8-2.4) mg/dl Total Bilirubin 0.4 (0.2-1) mg/dl AST 17 (15-37) U/L ALT 16 (12-78) U/L Alkaline Phosphatase 91 (45-117) U/L Troponin I < 0.015 (0-0.045) ng/ml Total Protein 6.7 (6.4-8.2) gm/dl Albumin 2.7 L (3.4-5.0) gm/dl Globulin 4.0 (2.5-4.0) gm/dl Albumin/Globulin Ratio 0.7 L (0.9-2) Procalcitonin 0.12 (0-0.5) ng/ml Urine Color Urine Appearance (Clear) Urine pH (4.5-7.5) Ur Specific [place] (1.000-1.030) Urine Protein (Negative) Urine Glucose (UA) (Negative) Urine Ketones (Negative) Urine Blood (Negative) Urine Nitrite (Negative) Urine Bilirubin (Negative) Urine Urobilinogen (Negative) Ur Leukocyte Esterase (Negative) Urine RBC (0-4) /hpf Urine WBC (0-5) /hpf Ur Epithelial Cells (0-5) /lpf Ur Renal Epithelial Cell (0-5) /lpf Urine Bacteria (Negative) COVID-19 Eval Order SARS-CoV-2 (PCR) (Negative) Influenza Type A (PCR) (Neg) Influenza Type B (PCR) (Neg) RSV (RT-PCR) (Neg) 07/29/20 07/29/20 07/29/20 Range/Units 20:19 20:19 20:44 WBC (4.8-10.8) K/uL RBC (4.2-5.4) M/uL Hgb (12.0-16.0) g/dL Hct (37-47) % MCV (80-100) fL MCH (25-34) pg MCHC (32-36) g/dL RDW Std Deviation (36.4-46.3) fL RDW Coeff of Neva (11.5-14.5) % Plt Count (130-400) K/uL MPV (7.4-10.4) fL Immature Gran % (Auto) % Neut % (Auto) % Lymph % (Auto) % [place] % (Auto) % Eos % (Auto) % Baso % (Auto) % Neut # (Auto) (1.4-6.5) K/uL Lymph # (Auto) (1.2-3.4) K/uL [place] # (Auto) (0.11-0.59) K/uL Eos # (Auto) (0-0.5) K/uL Baso # (Auto) (0-0.2) K/uL Immature Gran # (Auto) (0.00-0.02) K/uL PT 10.7 (9.0-12.0) Seconds INR 1.1 (0.9-1.1) APTT 35.8 H (21.0-31.0) Seconds PTT Ratio 1.4 Sodium (136-145) mmol/L Potassium (3.5-5.1) mmol/L Chloride (98-107) mmol/L Carbon Dioxide (21-32) mmol/L Anion Gap (3-11) BUN (7-18) mg/dl Creatinine (0.6-1.2) mg/dl Est Cr Clr Drug Dosing ml/min Est GFR ( Amer) Est GFR (Non-Af Amer) BUN/Creatinine Ratio (10-20) Glucose (70-99) mg/dl Lactate 1.0 (0.4-2.0) mmol/L Calcium (8.5-10.1) mg/dl Magnesium (1.8-2.4) mg/dl Total Bilirubin (0.2-1) mg/dl AST (15-37) U/L ALT (12-78) U/L Alkaline Phosphatase (45-117) U/L Troponin I (0-0.045) ng/ml Total Protein (6.4-8.2) gm/dl Albumin (3.4-5.0) gm/dl Globulin (2.5-4.0) gm/dl Albumin/Globulin Ratio (0.9-2) Procalcitonin (0-0.5) ng/ml Urine Color Urine Appearance (Clear) Urine pH (4.5-7.5) Ur Specific [place] (1.000-1.030) Urine Protein (Negative) Urine Glucose (UA) (Negative) Urine Ketones (Negative) Urine Blood (Negative) Urine Nitrite (Negative) Urine Bilirubin (Negative) Urine Urobilinogen (Negative) Ur Leukocyte Esterase (Negative) Urine RBC (0-4) /hpf Urine WBC (0-5) /hpf Ur Epithelial Cells (0-5) /lpf Ur Renal Epithelial Cell (0-5) /lpf Urine Bacteria (Negative) COVID-19 Eval Order CovFluRsv at [facility] SARS-CoV-2 (PCR) (Negative) Influenza Type A (PCR) (Neg) Influenza Type B (PCR) (Neg) RSV (RT-PCR) (Neg) 07/29/20 07/29/20 Range/Units 20:44 Unknown WBC (4.8-10.8) K/uL RBC (4.2-5.4) M/uL Hgb (12.0-16.0) g/dL Hct (37-47) % MCV (80-100) fL MCH (25-34) pg MCHC (32-36) g/dL RDW Std Deviation (36.4-46.3) fL RDW Coeff of Neva (11.5-14.5) % Plt Count (130-400) K/uL MPV (7.4-10.4) fL Immature Gran % (Auto) % Neut % (Auto) % Lymph % (Auto) % [place] % (Auto) % Eos % (Auto) % Baso % (Auto) % Neut # (Auto) (1.4-6.5) K/uL Lymph # (Auto) (1.2-3.4) K/uL [place] # (Auto) (0.11-0.59) K/uL Eos # (Auto) (0-0.5) K/uL Baso # (Auto) (0-0.2) K/uL Immature Gran # (Auto) (0.00-0.02) K/uL PT (9.0-12.0) Seconds INR (0.9-1.1) APTT (21.0-31.0) Seconds PTT Ratio Sodium (136-145) mmol/L Potassium (3.5-5.1) mmol/L Chloride (98-107) mmol/L Carbon Dioxide (21-32) mmol/L Anion Gap (3-11) BUN (7-18) mg/dl Creatinine (0.6-1.2) mg/dl Est Cr Clr Drug Dosing ml/min Est GFR ( Amer) Est GFR (Non-Af Amer) BUN/Creatinine Ratio (10-20) Glucose (70-99) mg/dl Lactate (0.4-2.0) mmol/L Calcium (8.5-10.1) mg/dl Magnesium (1.8-2.4) mg/dl Total Bilirubin (0.2-1) mg/dl AST (15-37) U/L ALT (12-78) U/L Alkaline Phosphatase (45-117) U/L Troponin I (0-0.045) ng/ml Total Protein (6.4-8.2) gm/dl Albumin (3.4-5.0) gm/dl Globulin (2.5-4.0) gm/dl Albumin/Globulin Ratio (0.9-2) Procalcitonin (0-0.5) ng/ml Urine Color Yellow Urine Appearance Clear (Clear) Urine pH 7.0 (4.5-7.5) Ur Specific [place] 1.020 (1.000-1.030) Urine Protein Negative (Negative) Urine Glucose (UA) Negative (Negative) Urine Ketones Negative (Negative) Urine Blood Negative (Negative) Urine Nitrite Negative (Negative) Urine Bilirubin Negative (Negative) Urine Urobilinogen Negative (Negative) Ur Leukocyte Esterase 1+ H (Negative) Urine RBC 0-4 (0-4) /hpf Urine WBC >30 H (0-5) /hpf Ur Epithelial Cells 5-10 H (0-5) /lpf Ur Renal Epithelial Cell 0-5 (0-5) /lpf Urine Bacteria Negative (Negative) COVID-19 Eval Order SARS-CoV-2 (PCR) POSITIVE A* (Negative) Influenza Type A (PCR) Negative (Neg) Influenza Type B (PCR) Negative (Neg) RSV (RT-PCR) Negative (Neg) Diagnostic Findings XR chest 1V portable HISTORY: SEPSIS COMPARISON: Chest 03/14/2019. FINDINGS: Right Port-A-Cath terminates in the distal SVC. No pneumothorax. No pleural effusions. There is a left-sided dual-chamber pacemaker. Chronic right basilar opacity and volume loss within the right hemithorax remains in change. There is also stable distortion of the right hilum. This favors postoperative change. There are new patchy densities within the base of the left lower lobe. The upper lung zones are clear. IMPRESSION: 1. There are new patchy densities within the left lower lobe. This likely represents a pneumonia. Recommend follow-up to resolution. 2. No change in the appearance of the right hemithorax suggestive of postoperative change. ACT 112: Negative or not required by law. Electronically signed by: Hany Rogers M.D. 07/29/2020 8:47 PM Dictated: 07/29/202045Transcribed: 07/29/202045 ------- CTA-Chest - per STAT-rad: No definite pulmonary embolus identified. No aortic aneurysm or dissection . patchy groundglass opacities and densities throughout the lungs, concerning for an infectious/inflammatory process such as Covid-19 infection. Small hypodense nodules in the thyroid to be further evaluated wt nonemergent dedicated ultrasound if clinically indicated. Nonspecific mildly prominent mediastinal lymph nodes. Large hiatal hernia containing most of the stomach. Left sided pacemaker. Cholelithiasis ECG Additional Comments: EKG with ST at 109, RBBB, LAD, PVCs Code Status & VTE Plan VTE Prophylaxis Plan VTE Prophylaxis will be ordered: Yes PG Care Time/CCT Total # of Minutes Spent Total Time Spent with Patient: Total time spent is greater than 50% in coordination of care (as documented) at patient's floor/unit and/or counseling patient: Coding Level of Care Code 73598 Initial Inpt Care Lvl 3 Diagnoses COVID-19 U07.1 Anxiety F41.9 HTN (hypertension) I10 Hypertension type: essential hypertension Asthma J45.909 Asthma severity: unspecified severity Asthma complication type: uncomplicated Asthma persistence: unspecified (1) HTN (hypertension) Hypertension type: essential hypertension Qualified Code(s): I10 - Essential (primary) hypertension (2) Asthma Asthma severity: unspecified severity Asthma complication type: uncomplicated Asthma persistence: unspecified Qualified Code(s): J45.909 - Unspecified asthma, uncomplicated
[2020-07-30] MEDS ORDERED: ONDANSETRON INJ 2 MG/ML 2 ML VIAL IV PRN (00:27)
[2020-07-30] MEDS ORDERED: ACETAMINOPHEN HOME PACK 500 MG TABLET PO PRN (00:27)
[2020-07-30] MEDS ORDERED: ALBUTEROL HFA 8 GM INHALER INH PRN (00:27)
[2020-07-30] MEDS ORDERED: METOPROLOL TARTRATE 25 MG TAB PO ONE (01:00)
[2020-07-30] MEDS ORDERED: POTASSIUM CHLORIDE CRTAB 20 MEQ TABCR PO ONE (01:00)
[2020-07-30 01:05] LABS: NT Pro B Type Natriuretic Pept 200 pg/ml (0-900); Phosphorus 2.1 mg/dl (2.5-4.9)
[2020-07-30] MEDS: LORazepam 1 MG TAB PO PRN ×2 (01:29→21:01)
--- NOTE | 2020-07-30 07:41 | CT Scan Report ---
CT ANGIOGRAPHY OF THE CHEST, PULMONARY EMBOLUS PROTOCOL CLINICAL HISTORY: Sepsis. History of lung cancer. COMPARISON STUDY: Chest CT October 28, 2019. PET/CT November 13, 2019. CT of the chest, abdomen and pelvis Ju 2019. TECHNIQUE: Following IV administration of 120 mL of Optiray-320, helical axial images of the chest we re obtained utilizing the pulmonary embolus protocol. Maximal intensity projections and sagittal and coronal reformats were viewed on an independent 3D workstation. IV contrast was administered withou t complication. Automated exposure control was utilized for the study. A dose lowering technique wa s utilized adhering to the principles of ALARA. CT DOSE: 587.61 mGycm FINDINGS: No pulmonary emboli are identified. No thoracic aortic dissection is noted. A left subclav helen dual lead pacer is in place. Note is made of mild cardiomegaly. There are prominent left hilar an d mediastinal lymph nodes. Index left hilar node on image 184 of 296 measures 1 cm in short axis sten t. Right paramediastinal opacity is unchanged. This favors atelectasis. There is a large hiatal herni a with contains the majority of the stomach as well as a portion of the pancreas. Postoperative findi ngs from right upper lobectomy are noted. The previously described right hilar nodule and the right l ower lobe groundglass nodule on CT of October 28, 2019 are less defined on this examination. However, cuauhtemoc luation is difficult given interval developed of multifocal groundglass opacities within the lungs, g reater within the left lung. No suspicious lesions within the bony thorax are noted. There are small thyroid nodules. Gallstone within the gallbladder is noted. IMPRESSION: 1. No pulmonary emboli identified. 2. Interval development of multifocal groundglass opacities within the lungs suggestive of viral pneu monia. 3. The previously described right hilar nodule and right lower lobe groundglass nodule are less defin ed on this exam although evaluation is difficult given the superimposed infectious process. Therefore , imaging follow-up is recommended with a short-term follow-up chest CT. 2. Large hiatal hernia. ACT 112: Negative or not required by law. Electronically signed by: Jamil Mccabe M.D. 07/30/2020 7:39 AM
[2020-07-30] MEDS: ESCITALOPRAM OXALATE 10 MG TAB PO SCH (08:24)
[2020-07-30] MEDS: FAMOTIDINE 40 MG TABLET PO SCH (08:24)
[2020-07-30] MEDS: PSEUDOEPHEDRINE HCL 30 MG TAB PO SCH ×2 (08:24→21:01)
[2020-07-30] MEDS: ACETAMINOPHEN 325 MG TAB PO PRN ×3 (08:24→22:23)
[2020-07-30] MEDS: busPIRone 15 MG TAB PO SCH ×2 (08:24→20:57)
[2020-07-30] MEDS: METOPROLOL TARTRATE 25 MG TAB PO SCH ×2 (08:25→20:58)
[2020-07-30] MEDS: ENOXAPARIN INJ 40 MG/0.4 ML SYR SQ SCH ×2 (08:27→21:00)
[2020-07-30] MEDS: FLUTICASONE/VILANTEROL 200/25MCG 14 PUFFS/INHALER INH SCH (08:27)
[2020-07-30] MEDS: UMECLIDINIUM BROMIDE 62.5MCG/BLISTER 7 PUFFS/INHALER INH SCH (08:27)
[2020-07-30 08:29] LABS: Basophils # (auto) 0.01 K/uL (0-0.2); Basophils % (auto) 0.1 %; Hematocrit (blood only) 36.6 % (37-47); Hemoglobin 12.4 g/dL (12.0-16.0); Immature Granulocytes # (auto) 0.04 K/uL (0.00-0.02); Immature Granulocytes % (auto) 0.5 %; Lymphocytes # (auto) 0.49 K/uL (1.2-3.4); Lymphocytes % (auto) 6.4 %; Mean Corpuscular Hemoglobin 31.4 pg (25-34); Mean Corpuscular Hgb Conc 33.9 g/dL (32-36); Mean Corpuscular Volume 92.7 fL (80-100); Mean Platelet Volume 9.5 fL (7.4-10.4); Monocytes # (auto) 0.13 K/uL (0.11-0.59); Monocytes % (auto) 1.7 %; Neutrophils # (auto) 6.97 K/uL (1.4-6.5); Neutrophils % (auto) 91.3 %; Nucleated RBC # (auto) 0.02 K/uL (0-0); Nucleated RBC % (auto) 0.2 %; Platelet Count 246 K/uL (130-400); RDW Coefficient of Variation 12.6 % (11.5-14.5); RDW Standard Deviation 42.9 fL (36.4-46.3); Red Blood Count 3.95 M/uL (4.2-5.4); White Blood Count 7.64 K/uL (4.8-10.8)
--- NOTE | 2020-07-30 08:59 | Electrocardiogram Report ---
Test Reason : Blood Pressure : / mmHG Vent. Rate : 109 BPM Atrial Rate : 109 BPM P-R Int : 154 ms QRS Dur : 136 ms QT Int : 358 ms P-R-T Axes : 058 -71 036 degrees QTc Int : 482 ms Sinus tachycardia with occasional Premature ventricular complexes Right bundle branch block Left anterior fascicular block Abnormal ECG When compared with ECG of 08-MAR-2019 17:32, Premature ventricular complexes are now Present Confirmed by Erasmo Suarez ([id number]) on 07/30/2020 8:59:12 AM Referred By: REFERRED SELF Confirmed By:Erasmo Suarez
[2020-07-30] MEDS ORDERED: DEXAMETHASONE SOD PHOSPHATE 6 MG in SYRINGE 0 ML IV SCH (09:00)
[2020-07-30] MEDS ORDERED: DEXAMETHASONE SOD INJ 10 MG/ML VIAL IV SCH (09:00)
[2020-07-30 09:09] LABS: BUN Creatinine Ratio 11.9 (10-20); Calcium 9.5 mg/dl (8.5-10.1); Creatinine Clr Calc Pharmacy 55.9 ml/min; Est GFR (African American) 69.6; Potassium 4.6 mmol/L (3.5-5.1)
--- NOTE | 2020-07-30 15:09 | Hospitalist Progress Note ---
Date of Service July 30, 2020 Assessment & Plan (1) COVID-19: Saturations on room air ranging from 87 - 94%. Procalcitonin = 0.12. Patient has already received one dose of her Covid-19 vaccination. Patient's symptoms began > 10 days ago. - Would not benefit from remdesivir or convalescent plasma at this stage of illness. - Dexamethasone 6 mg PO daily (End date: 08/07/2020) - Tylenol PRN fever - Albuterol HFA PRN SOB (2) HTN (hypertension): Blood pressure elevated in ER. Presently BP is 115/75. - Continue nebivolol 2.5mg po daily - Continue to monitor (3) Anxiety: Chronic. Stable. - Continue Buspirone 15mg po BID - Continue escitalopram oxalate - Ativan qHS PRN (4) Thrombocytopenia: Hx of. Platelets at 250 today. - Monitor (5) Asthma: Chronic. No cough or wheeze at present. - Continue Tiotropium. Fluticasone/Salmeterol - Continue to monitor (6) DVT prophylaxis: Lovenox 40 mg SQ Q12h Admission and Anticipated Discharge Date Admission Date: July 29, 2020 Subjective Feeling some better today. Less shortness of breath. Some cough. Reports no fevers/chills, chest pain, abdominal pain, nausea, or vomiting. Physical Exam Constitutional: WD/WN, vitals as above Eyes: EOM intact bilaterally; no conjunctival abnormality ENMT: external ear and nose normal, oropharynx normal Neck: trachea midline, no thyromegaly normal visual inspection Respiratory: normal respiratory effort, lungs clear to auscultation no respiratory distress Cardiovascular: RRR, no murmur, no edema Gastrointestinal (Abdomen): Inspection/Auscultation: abdomen normal to inspection; abdomen not distended Musculoskeletal: no cyanosis or clubbing, extremities motor strength 5/5 Skin: no rashes, warm and dry Neurologic: moves all extremities and awake Psychiatric: Orientation: alert, oriented to person and cooperative Results & Data Results & Data ([facility]) Vital Signs (Past 12 Hours) Vital Signs Temp Pulse Resp BP BP Pulse Ox 07/30/20 09:09 36.8 C 16 116/73 07/30/20 07:28 36.7 C 90 18 144/83 H 95 PG Care Time/CCT Total # of Minutes Spent Total Time Spent with Patient: Total time spent is greater than 50% in coordination of care (as documented) at patient's floor/unit and/or counseling patient: Coding Level of Care Code 64442 Subseq Hosp Care Lvl 2 Diagnoses COVID-19 U07.1 HTN (hypertension) I10 Hypertension type: essential hypertension Anxiety F41.9 Thrombocytopenia D69.6 Asthma J45.909 Asthma severity: unspecified severity Asthma persistence: unspecified Asthma complication type: uncomplicated DVT prophylaxis Z29.9 (1) HTN (hypertension) Hypertension type: essential hypertension Qualified Code(s): I10 - Essential (primary) hypertension (2) Asthma Asthma severity: unspecified severity Asthma persistence: unspecified Asthma complication type: uncomplicated Qualified Code(s): J45.909 - Unspecified asthma, uncomplicated
[2020-07-31] MEDS: FLUTICASONE/VILANTEROL 200/25MCG 14 PUFFS/INHALER INH SCH (07:40)
[2020-07-31] MEDS: UMECLIDINIUM BROMIDE 62.5MCG/BLISTER 7 PUFFS/INHALER INH SCH (07:40)
[2020-07-31] MEDS: busPIRone 15 MG TAB PO SCH ×2 (07:40→20:44)
[2020-07-31] MEDS: FAMOTIDINE 40 MG TABLET PO SCH (07:42)
[2020-07-31] MEDS: dexAMETHasone 4 MG TAB PO SCH (07:42)
[2020-07-31] MEDS: ESCITALOPRAM OXALATE 10 MG TAB PO SCH (07:42)
[2020-07-31] MEDS: PSEUDOEPHEDRINE HCL 30 MG TAB PO SCH ×2 (07:43→20:46)
[2020-07-31] MEDS: ENOXAPARIN INJ 40 MG/0.4 ML SYR SQ SCH ×2 (07:43→20:45)
[2020-07-31] MEDS: METOPROLOL TARTRATE 25 MG TAB PO SCH ×2 (07:44→20:45)
[2020-07-31] MEDS ORDERED: LORazepam 0.5 MG TAB PO STA (12:22)
--- NOTE | 2020-07-31 12:26 | Hospitalist Progress Note ---
Date of Service July 31, 2020 Assessment & Plan (1) COVID-19: Saturations on room air ranging from 87 - 94%. Procalcitonin = 0.12. Patient has already received one dose of her Covid-19 vaccination. Patient's symptoms began > 10 days ago. - Would not benefit from remdesivir or convalescent plasma at this stage of illness. - Dexamethasone 6 mg PO daily (End date: 08/07/2020) - Tylenol PRN fever - Albuterol HFA PRN SOB -> Weaned down to room air at rest with some probably O2 need with exertion. (2) HTN (hypertension): Blood pressure elevated in ER. Presently BP is 130/80. - Continue beta-fabiola - Continue to monitor (3) Anxiety: Chronic. Stable. - Continue Buspirone 15mg po BID - Continue escitalopram oxalate - Ativan qHS PRN (4) Thrombocytopenia: Hx of. Platelets at 250 on 07/30. - Monitor (5) Asthma: Chronic. No cough or wheeze at present. - Continue Tiotropium. Fluticasone/Salmeterol - Continue to monitor (6) DVT prophylaxis: Lovenox 40 mg SQ Q12h Admission and Anticipated Discharge Date Admission Date: July 29, 2020 Subjective Some anxiety. Was thinking she wanted to go home, then changed her mind. Reports no fevers/chills, chest pain, shortness of breath, abdominal pain, nausea, or vomiting. Physical Exam Constitutional: WD/WN, vitals as above Eyes: EOM intact bilaterally; no conjunctival abnormality ENMT: external ear and nose normal, oropharynx normal Neck: trachea midline, no thyromegaly normal visual inspection Respiratory: normal respiratory effort, lungs clear to auscultation no respiratory distress Cardiovascular: RRR, no murmur, no edema Gastrointestinal (Abdomen): Inspection/Auscultation: abdomen normal to in spection; abdomen not distended Musculoskeletal: no cyanosis or clubbing, extremities motor strength 5/5 Skin: no rashes, warm and dry Neurologic: moves all extremities and awake Psychiatric: Orientation: alert, oriented to person and cooperative Results & Data Results & Data ([facility]) Vital Signs (Past 12 Hours) Vital Signs Temp Pulse Resp BP Pulse Ox 07/31/20 06:46 36.6 C 91 H 17 129/81 94 PG Care Time/CCT Total # of Minutes Spent Total Time Spent with Patient: Total time spent is greater than 50% in coordination of care (as documented) at patient's floor/unit and/or counseling patient: Coding Level of Care Code 63280 Subseq Hosp Care Lvl 2 Diagnoses COVID-19 U07.1 HTN (hypertension) I10 Hypertension type: essential hypertension Anxiety F41.9 Thrombocytopenia D69.6 Asthma J45.909 Asthma severity: unspecified severity Asthma persistence: unspecified Asthma complication type: uncomplicated DVT prophylaxis Z29.9 (1) HTN (hypertension) Hypertension type: essential hypertension Qualified Code(s): I10 - Essential (primary) hypertension (2) Asthma Asthma severity: unspecified severity Asthma persistence: unspecified Asthma complication type: uncomplicated Qualified Code(s): J45.909 - Unspecified asthma, uncomplicated
[2020-07-31] MEDS: LORazepam 1 MG TAB PO PRN (20:46)
[2020-07-31] MEDS: ACETAMINOPHEN 325 MG TAB PO PRN (20:46)
[2020-07-31] MEDS ORDERED: HEPARIN 100 UNIT/ML 5ML FLUSH FLUSH PRN (23:04)
[2020-08-01] MEDS: PSEUDOEPHEDRINE HCL 30 MG TAB PO SCH (08:30)
[2020-08-01] MEDS: busPIRone 15 MG TAB PO SCH (08:30)
[2020-08-01] MEDS: ESCITALOPRAM OXALATE 10 MG TAB PO SCH (08:31)
[2020-08-01] MEDS: ENOXAPARIN INJ 40 MG/0.4 ML SYR SQ SCH (08:31)
[2020-08-01] MEDS: dexAMETHasone 4 MG TAB PO SCH (08:31)
[2020-08-01] MEDS: FAMOTIDINE 40 MG TABLET PO SCH (08:31)
[2020-08-01] MEDS: FLUTICASONE/VILANTEROL 200/25MCG 14 PUFFS/INHALER INH SCH (08:32)
[2020-08-01] MEDS: UMECLIDINIUM BROMIDE 62.5MCG/BLISTER 7 PUFFS/INHALER INH SCH (08:32)
[2020-08-01] MEDS: METOPROLOL TARTRATE 25 MG TAB PO SCH (08:37)
--- NOTE | 2020-08-01 11:51 | XRay Report ---
SINGLE VIEW CHEST CLINICAL HISTORY: Hypoxia. Covid. FINDINGS: An AP, portable, upright chest radiograph is compared to chest x-ray and chest CT dated 07/20. The examination is degraded by portable technique and patient rotation. A right internal jugu lar central venous infusion port and a 2-lead cardiac pacemaker are unchanged in position. A large hi atal hernia is again noted. The cardiomediastinal silhouette is unremarkable. There is postoperative change and volume loss in the right lung with right-sided paramediastinal fibrosis. Patchy airspace o pacities are seen throughout both lungs, most confluent at the left lung base No large pleural effusi on or pneumothorax is seen. The skeletal structures are osteopenic. The bony thorax is grossly intact . IMPRESSION:. 1. Subtle patchy airspace opacities are unchanged and consistent with the reported history of a viral pneumonia. Radiographic follow-up to resolution is recommended. 2. Postoperative change in the right lung and additional chronic findings as above. ACT 112: Negative or not required by law. Electronically signed by: Nish Conley M.D. 08/01/2020 11:50 AM
--- NOTE | 2020-08-01 15:29 | Discharge Summary ---
Date of Service August 01, 2020 Admission HPI Per Admitting Provider Eden Sandoval is a 69yo female with prior history of lung cancer s/p right upper lobectomy, HTN and Asthma presenting with Covid-19 pneumonia, hypoxia. Patient's was recently admitted to [facility] with the same - is presently intubated in MICU. Patient began to feel fatigued around 07/18/19. She had her first dose of the Covid-19 vaccine administered on 07/20/20. She continued to feel fatigued and then developed low grade fever, loss of taste and BARRIOS. She has family members that have recently tested positive for Covid-19 as well. Patient denies PARKER, chest pain, palpitations, abdominal pain, nausea, vomiting, diarrhea, constipation. No additional complaints at this time. Patient is concerned about her . ER course: Albuterol 2 puffs, Dexamethasone 6mg IV, Ertapenem, Labetalol Principal Diagnosis Covid-19 pneumonia Discharge Exam Constitutional WD/WN, vitals as above Eyes EOM intact bilaterally; no conjunctival abnormality ENMT external ear and nose normal, oropharynx normal Neck trachea midline, no thyromegaly normal visual inspection Respiratory normal respiratory effort, lungs clear to auscultation no respiratory distress Cardiovascular RRR, no murmur, no edema Gastrointestinal (Abdomen) Inspection/Auscultation: abdomen normal to inspection; abdomen not distended Musculoskeletal no cyanosis or clubbing, extremities motor strength 5/5 Skin no rashes, warm and dry Neurologic moves all extremities and awake Psychiatric Orientation: alert, oriented to person and cooperative Discharge Data Allergies Allergy/AdvReac Type Severity Reaction Status Date / Time levofloxacin Allergy Intermediate Hives Verified 06/22/20 13:18 Quinolones Allergy Intermediate HIVES Verified 06/22/20 13:18 Penicillins Allergy Mild RASH-KEFLEX Verified 06/22/20 13:[address] AMANDA mirtazapine AdvReac Severe STRESS Verified 07/30/20 00:43 INDUCED CARDIOMYOPATHY sertraline AdvReac Intermediate MAKES HER Verified 07/30/20 00:43 "CRAZY". Consultations 07/29/20 22:03 ED Decision to Admit Stat Ordered Studies 07/29/20 20:52 CT angio chest PE protocol Urgent Hospital Course (1) COVID-19: Saturations on room air ranging from 87 - 94%. Procalcitonin = 0.12. Patient has already received one dose of her Covid-19 vaccination. Patient's symptoms began > 10 days ago. - Would not benefit from remdesivir or convalescent plasma at this stage of illness. - Dexamethasone 6 mg PO daily (End date: 08/07/2020) - Weaned down to room air at rest with 2L nasal cannula O2 with exertion. Follow up with PCP in 1-2 weeks. (2) HTN (hypertension): Blood pressure elevated in ER. Presently BP is 130/80. - Continue beta-fabiola - Continue to monitor (3) Anxiety: Chronic. Stable. - Continue Buspirone 15mg po BID - Continue escitalopram oxalate - Ativan qHS PRN (4) Thrombocytopenia: Hx of. Platelets at 250 on 07/30. - Monitor (5) Asthma: Chronic. No cough or wheeze at present. - Continue Tiotropium. Fluticasone/Salmeterol - Continue to monitor (6) DVT prophylaxis: Lovenox 40 mg SQ Q12h Total Time Total Time Spent Total Time Spent (In Minutes): 35 Discharge Plan Discharge Items Patient Disposition: Home - Home Health Services Reason For Visit: COVID-19 PNEUMONIA, HYPOXIA Discharge Diagnosis: Covid-19 pneumonia Condition on Discharge: Serious Activity: Resume your previous activity Non-emergency contact: Primary Care Provider Call non-emergency contact if: your symptoms worsen Follow-up/Referrals: Brooks Eddy MD [Primary Care Provider] - 08/03/20 9:40 am (VIRTUAL VISIT WITH PCP. OFFICE WILL CALL YOU IN ADVANCE TO SET THIS UP.) Diet: Regular Addtl Attending Provider Instructions: Ms. Sandoval, You were admitted to the hospital with Covid-19 pneumonia. We have treated you with all the current guideline medications. You are getting better, but your lungs still need time to heal. You are improving day-by-day, though, so I think you will do well with some time to heal. Right now, you need no oxygen while you rest, but when you get up and move around, you need 2L of oxygen through the nasal cannula to keep your oxygen levels at an appropriate level. We are helping arrange home oxygen. You will hopefully only need this for another few weeks, but Covid is hard to predict, so I am not sure how your oxygen needs may change/improve with time. Please see your PCP in the next week or two to see how you are doing and to monitor your oxygen level. Your isolation ends on August 02, so you should be able to see them via tele-health or in person depending on what is convenient for you. We are sending you home on the remaining portion of your steroids which is 5 more days. Pending Studies at Discharge: No Stand-Alone Forms: [facility], Smoking Cessation Medications and DC Order Prescriptions: New dexamethasone 6 mg tablet 6 mg PO DAILY Qty: 5 RF: 0 Continued escitalopram oxalate 20 mg tablet 30 mg PO QAM RF: 0 buspirone 15 mg tablet 15 mg PO BID RF: 0 fexofenadine 180 mg tablet 180 mg PO DAILY PRN (Reason: allergies) RF: 0 lorazepam 1 mg tablet 3 mg PO HS PRN (Reason: Anxiety) RF: 0 Bystolic 2.5 mg tablet 2.5 mg PO DAILY Qty: 30 RF: 5 pseudoephedrine HCl [Sudafed 12 Hour] 120 mg tablet extended release 120 mg PO BID 30 Days Qty: 60 RF: 3 Spiriva Respimat 2.5 mcg/actuation mist 2 inh inhalation QAM Qty: 4 RF: 2 albuterol sulfate 90 mcg/actuation HFA aerosol inhaler 2 puff INHALATION Q6H PRN (Reason: Shortness Of Breath Or Wheezing) RF: 0 fluticasone propion-salmeterol [Wixela Inhub] 500-50 mcg/dose blister with device 1 inh INHALATION BID RF: 0 famotidine [Pepcid] 40 mg Tablet 40 mg PO QAM RF: 0 acetaminophen [Tylenol Extra Strength] 500 mg Tablet 1,000 mg PO Q6H PRN (Reason: Pain) RF: 0 Discharge Orders: Discharge Order (Routine); Ordered 08/01/20 Ordered By: Willi Yin/Other Patient Handouts: COVID-19 Home Care Admission Data Admit Date/Time: 07/29/20 22:55 Attending Provider: Willi Zambrano Admit Provider: Linsey Balbuena Primary Care Provider: Brooks Eddy Other Providers: Willi Zambrano Other Interventions: Discharge Summary Assessment (RN) Last Done: 08/01/20 13:24 Coding Level of Care Code D/C Day Management >30 mins Diagnoses COVID-19 U07.1 HTN (hypertension) I10 Hypertension type: essential hypertension Anxiety F41.9 Thrombocytopenia D69.6 Asthma J45.909 Asthma severity: unspecified severity Asthma persistence: unspecified Asthma complication type: uncomplicated DVT prophylaxis Z29.9
== END 2020-08-01 14:40 | disposition home or self-care (01) | DRG 177 ==
LOC: ED 19:39 → SUATTDRO 22:55 → 3E 22:55